=== PATIENT | female | born 2005 | race Caucasian/White ===

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

== ENCOUNTER 2023-08-08 03:40 | Emergency (ER) | payer BC, MEDICAID, SELFPAY ==
[2023-08-08 03:56] VITALS: BP 153/103; PULSE 101; RESP 20; TEMP 36.5; O2SAT 100; BMI 38.0
[2023-08-08 04:17] LABS: Basophils % 0.3 %; Eosinophils # 0.2 10^3/uL (0.0-0.8); Eosinophils % 1.6 %; Lymphocytes % 16.9 %; Mean Corpuscular HGB Conc 34.3 g/dL (30-55); Mean Corpuscular Hemoglobin 28.3 pg (27-33); Mean Corpuscular Volume 82.4 fl (85-98); Mean Platelet Volume 10.5 fL (7.4-10.4); Monocytes # 0.7 10^3/uL (0.2-0.9); Monocytes % 5.8 %; Neutrophils # 8.95 10^3/uL (1.8-8.0); Neutrophils % 74.9 %; Nucleated Red Blood Cells % 0 %; Platelet Count 328 10^3/cmm (157-399); Red Blood Count 4.49 10^6/uL (3.85-5.65); Red Cell Distribution Width 13.3 % (12.1-15.1); White Blood Count 11.95 10^3/uL (4.5-13.0)
[2023-08-08 04:25] LABS: INR 0.94 (0.8-1.2)
[2023-08-08 04:26] LABS: Add Urine Microscopic? YES; Bilirubin Urine Neg (Negative); Blood Urine Neg (Negative); Glucose Urine UA Norm (Normal); Ketones Urine Negative (Negative); Leukocyte Esterase Urine Negative (Negative); Nitrate Urine Negative (Negative); Partial Thromboplastin Time 30.2 SECONDS (23.9-36.7); Protein Urine Trace (Negative); Specific Gravity, Urine 1.005 (1.005-1.030); Urine Appearance Hazy (CLEAR); Urine Color Yellow (Yellow); Urobilinogen Urine Norm (Negative); pH Urine 7 (5-7)
[2023-08-08 04:28] LABS: Bacteria Urine 1+ /hpf; Squamous Epithelial Cell Urine 15-25 /hpf (0-5)
[2023-08-08 04:58] LABS: Alanine Aminotransferase 13 U/L (0-33); Albumin Level 4.2 g/dL (3.5-5.2); Alkaline Phosphatase 122 U/L (35-105); Anion Gap 17.9 (5-19); Aspartate Amino Transferase 12 U/L (0-32); Blood Urea Nitrogen 7 mg/dL (6-20); Carbon Dioxide 21 mmol/L (22-29); Chloride 100 mmol/L (98-107); Globulin 2.7 g/dL (1.3-4.6); Glomerular Filtration Rate 157.3 mL/min (90-130); Glucose 106 mg/dL (65-115); Osmolality Calculated 278 mOsm/kg (285-295); Potassium 3.9 mmol/L (3.5-5.1); Sodium 135 mmol/L (136-145); Total Bilirubin 0.3 mg/dL (0.15-1.2); Total Protein 6.9 g/dL (6.6-8.7)
--- NOTE | 2023-08-08 05:27 | ED_ITS ---
HPI - Female Genitourinary 2 General: Chief complaint: Vaginal Bleeding Stated complaint: 14 wks pre spotting cramping Time Seen by Provider: 08/08/23 04:04 History of Present Illness: 18-year-old female presents to the emerg ency department stating that she is concerned as she is 14 weeks she has had a confirmatory ultrasound demonstrating intrauterine . She states she has been seeing her [facility]UP[facility]ERAP[facility] HOME [facility] as scheduled. She states that this evening she went to the bathroom and noted some light pink-colored spotting on her toilet paper. She states she has not had any type of sexual intercourse in the last week, but was recently treated for bacterial vaginosis and is scheduled to be retested in 2 days. She denies abdominal cramping fever chills or night sweats. She does states she has increased urinary frequency. Review of Systems 2 General: Reports: 10 or more systems reviewed and unremarkable except in HPI and below : Reports: urinary frequency and vaginal bleeding PFS ED 2 PFSH: Medical History History of ovarian cyst No pertinent family history Surgical History No pertinent past surgical history Social History Smoking and tobacco/nicotine status: never used tobacco/nicotine Alcohol intake: never Female Reproductive History: Spontaneous abortions: No Physical Exam 2 Const: COMMON NORMALS: no acute distress, patient oriented x3 and alert HENMT: COMMON NORMALS: normocephalic, atraumatic and moist oral mucous membranes HEAD & SCALP: normocephalic and atraumatic Eye: COMMON NORMALS: Equal, round and reactive pupils present and EOMs intact bilaterally PUPIL: Yes Equal, round and reactive pupils present Neck/C-Spine: COMMON NORMALS: full ROM and supple Resp: COMMON NORMALS: normal respiratory effort, No retractions and clear to auscultation bilaterally AUSCULTATION: clear to auscultation bilaterally Cardio: COMMON NORMALS: regular rate, regular rhythm, S1 normal heart sound present and S2 normal heart sound present RATE: regular rate RHYTHM: r egular rhythm HEART SOUNDS: S1 normal heart sound present and S2 normal heart sound present GI: COMMON NORMALS: Normal to inspection, nondistended, normoactive bowel sounds present, Soft to palpation and non-tender PALPATION: Yes Soft to palpation : COMMON NORMALS: Yes no CVA tenderness BLADDER/KIDNEY EXAM: Yes no CVA tenderness Back/Pelvis: COMMON NORMALS: no CVA tenderness and thoracic and lumbar spine normal to inspection Extremity: COMMON NORMALS: normal to inspection, full ROM and capillary refill normal Neuro: COMMON NORMALS: patient oriented x3 SENSORIUM/ORIENTATION: Yes alert Psych: COMMON NORMALS: mental status grossly normal, Normal thought process present and cooperative THOUGHT PROCESS: Normal thought process present Skin: COMMON NORMALS: no rashes or lesions noted GENERAL SKIN EXAM: no rashes or lesions noted Course 2 Vital Signs: Vital signs: Vital Signs Temperature 97.7 F 08/08/23 03:56 Pulse Rate 101 H 08/08/23 03:56 Respiratory Rate 20 H 08/08/23 03:56 Blood Pressure 153/103 08/08/23 03:56 Pulse Oximetry 100 08/08/23 03:56 MDM - Female Medical Decision Making Physical exam completed and documented, I have obtained a CBC and a CMP as well as a urinalysis and a quantitative hCG. I will provide the patient written prescription for Keflex antibiotics for her urinary tract infection and have encouraged her to follow-up with her [facility] as previously scheduled. Differential diagnosis includes UTI, threatened , implantation. Medical Records I reviewed the patient's medical records. Lab Data I reviewed the patient's lab results. 08/08/23 04:07 08/08/23 04:07 Laboratory Results WBC 11.95 10^3/uL (4.5-13.0) 08/08/23 04:07 RBC 4.49 10^6/uL (3.85-5.65) 08/08/23 04:07 Hgb 12.70 g/dL (12.4-14.8) 08/08/23 04:07 Hct 37.0 % (36-47) 08/08/23 04:07 MCV 82.4 fl (85-98) L 08/08/23 04:07 MCH 28.3 pg (27-33) 08/08/23 04:07 MCHC 34.3 g/dL (30-55) 08/08/23 04:07 RDW 13.3 % (12.1-15.1) 08/08/23 04:07 Plt Count 328 10^3/cmm (157-399) 08/08/23 04:07 MPV 10.5 fL (7.4-10.4) H 08/08/23 04:07 Neut % (Auto) 74.9 % 08/08/23 04:07 Lymph % (Auto) 16.9 % 08/08/23 04:07 [place] % (Auto) 5.8 % 08/08/23 04:07 Eos % (Auto) 1.6 % 08/08/23 04:07 Baso % (Auto) 0.3 % 08/08/23 04:07 Neut # (Auto) 8.95 10^3/uL (1.8-8.0) H 08/08/23 04:07 Lymph # (Auto) 2.0 10^3/uL (1.5-6.5) 08/08/23 04:07 [place] # (Auto) 0.7 10^3/uL (0.2-0.9) 08/08/23 04:07 Eos # (Auto) 0.2 10^3/uL (0.0-0.8) 08/08/23 04:07 Baso # (Auto) 0.0 10^3/uL (0.0-0.1) 08/08/23 04:07 Nucleated RBC % (auto) 0 % 08/08/23 04:07 Nucleated RBCs # 0.0 /100WBC 08/08/23 04:07 PT 12.90 SECONDS (12.1-14.9) 08/08/23 04:07 INR 0.94 (0.8-1.2) 08/08/23 04:07 APTT 30.2 SECONDS (23.9-36.7) 08/08/23 04:07 Sodium 135 mmol/L (136-145) L 08/08/23 04:07 Potassium 3.9 mmol/L (3.5-5.1) 08/08/23 04:07 Chloride 100 mmol/L (98-107) 08/08/23 04:07 Carbon Dioxide 21 mmol/L (22-29) L 08/08/23 04:07 Anion Gap 17.9 (5-19) 08/08/23 04:07 BUN 7 mg/dL (6-20) 08/08/23 04:07 Creatinine 0.5 mg/dL (0.5-0.9) 08/08/23 04:07 GFR Calculation 157.3 mL/min (90-130) H 08/08/23 04:07 Glucose 106 mg/dL (65-115) 08/08/23 04:07 Calculated Osmolality 278 mOsm/kg (285-295) L 08/08/23 04:07 Calcium 9.0 mg/dL (8.5-10.5) 08/08/23 04:07 Total Bilirubin 0.3 mg/dL (0.15-1.2) 08/08/23 04:07 AST 12 U/L (0-32) 08/08/23 04:07 ALT 13 U/L (0-33) 08/08/23 04:07 Alkaline Phosphatase 122 U/L (35-105) H 08/08/23 04:07 Total Protein 6.9 g/dL (6.6-8.7) 08/08/23 04:07 Albumin 4.2 g/dL (3.5-5.2) 08/08/23 04:07 Globulin 2.7 g/dL (1.3-4.6) 08/08/23 04:07 Ser , Semi-Qnt 92042.00 mIU/mL 08/08/23 04:07 Urine Color Yellow (Yellow) 08/08/23 04:07 Urine Appearance Hazy (CLEAR) A 08/08/23 04:07 Urine pH 7 (5-7) 08/08/23 04:07 Ur Specific [place] 1.005 (1.005-1.030) 08/08/23 04:07 Urine Protein Trace (Negative) 08/08/23 04:07 Urine Glucose (UA) Norm (Normal) 08/08/23 04:07 Urine Ketones Negative (Negative) 08/08/23 04:07 Urine Blood Neg (Negative) 08/08/23 04:07 Urine Nitrate Negative (Negative) 08/08/23 04:07 Urine Bilirubin Neg (Negative) 08/08/23 04:07 Urine Urobilinogen Norm mg/dL (Negative) 08/08/23 04:07 Ur Leukocyte Esterase Negative (Negative) 08/08/23 04:07 Urine RBC 5-10 /hpf (0-2) H 08/08/23 04:07 Urine WBC 5-10 /hpf (0-5) H 08/08/23 04:07 Ur Squamous Epith Cells 15-25 /hpf (0-5) H 08/08/23 04:07 Amorphous Sediment Not Reportable 08/08/23 04:07 Urine Bacteria 1+ /hpf (NONE) H 08/08/23 04:07 Blood Type O Positive 08/08/23 04:07 Rho(D) Type Rh positive 08/08/23 04:07 No radiology studies performed this visit Discharge Plan Discharge Patient Disposition: Home Clinical Impression: UTI (urinary tract infection) during , Vaginal bleeding before 22 weeks gestation Condition: Stable Prescriptions: New cephalexin 500 mg capsule 500 mg PO BID 7 Days Qty: 14 0RF No Action aspirin [Adult Aspirin Regimen] 81 mg tablet,delayed release (DR/EC) 81 mg PO DAILY metronidazole 250 mg tablet 250 mg PO BID labetalol 100 mg tablet 100 mg PO BID cephalexin 500 mg capsule 500 mg PO BID Qty: 20 0RF Discharge Orders: Discharge ED (Routine); Ordered 08/08/23 Ordered By: Gorge Ash Referrals: Suzanne Ramos FNP [Primary Care Provider] - Discharge Diet: Usual diet Discharge Activity: Resume usual activity Patient Instructions: Opioid Safety, Pain Management Activity Restrictions/Additional Instructions: Follow-up with your OCCUPATIONAL THERAPIST HOME [facility] provider's guidelines regarding sexual activity. Be sure to keep your previously scheduled appointment. Activity Restrictions/Additional Instructions: Thank you for choosing [facility] for your healthcare needs today. Please realize that you were seen in the Emergency Department and that we are providing you with an emergency medical screening exam and this may not be a complete and all inclusive of all the testing and or medical work-up that you may need to determine your ailment or severity of your illness. It is very important that you follow-up as instructed with your Primary care provider or Specialist for additional evaluation and to discuss your medical treatment plan. You may return to the Emergency Department should you have concerns or if your condition changes or worsens in any way. Coding Level of Care Code ED Tank Cooper for Son[facility] Rivers
[2023-08-08 05:43] VITALS: BP 153/103; PULSE 101; RESP 20; TEMP 36.5; O2SAT 100
== END 2023-08-08 05:44 | disposition home or self-care (01) ==
PROVIDERS: Emergency Provider Internal Medicine; PCP Nurse Practitioner Family
DX: O23.42 Unspecified infection of urinary tract in pregnancy, second trimester (principal); N39.0 Urinary tract infection, site not specified; O20.9 Hemorrhage in early pregnancy, unspecified; Z3A.14 14 weeks gestation of pregnancy; Z79.82 Long term (current) use of aspirin
CPT/HCPCS: 80053; 81001; 84702; 85025; 85610; 85730; 86900; 99283

== ENCOUNTER 2023-08-15 11:23 | Emergency (ER) | payer BC, MEDICAID, SELFPAY ==
[2023-08-15 12:35] VITALS: BP 119/74; PULSE 93; RESP 17; TEMP 36.9; O2SAT 98; BMI 38.2
[2023-08-15 15:46] VITALS: BP 123/94; PULSE 102; RESP 18; O2SAT 100
--- NOTE | 2023-08-15 16:05 | USR_ITS ---
PROCEDURE INFORMATION: Exam: US , Limited Exam date and time: 08/15/2023 3:45 PM Age: 18 years old Clinical indication: complicated by abdominal or pelvic pain; Lower; Second trimester (14 weeks 0 days to 27 weeks 6 days); Gestational age or lmp: 15w5d; ; Additional info: Pelvic pain/fetus evaluation LABS AND CLINICAL REPORTS: Gestational age (Established): 15 w 5 d Estimated due date (Established): 02/01/2024 TECHNIQUE: Imaging protocol: Real-time ultrasound of the maternal uterus with image documentation. Exam focused on the clinical indication. COMPARISON: US pelvic complete* [id number] 12/17/2022 12:33 AM FINDINGS: Gestation: Single intrauterine live . heart rate: 157 bpm. presentation: Breech presentation. Placenta: Posterior fundal and slightly low-lying placenta. BIOMETRY: Gestational age (AUA): GI equals 15 weeks 5 days. Estimated due date (AUA): VERONICA = 02/01/2024. MATERNAL: Cervix: Cervical length measures 0 cm. Cervix trace equals 4 centimeters. US/US OB limited [id number] IMPRESSION: 1. Single live intrauterine with a heart rate of 157 bpm. 2. Gestational age 15 weeks 5 days.
[2023-08-15 16:29] LABS: Basophils % 0.3 %; Eosinophils # 0.2 10^3/uL (0.0-0.8); Eosinophils % 1.3 %; Hematocrit 35.8 % (36-47); Lymphocytes # 1.9 10^3/uL (1.5-6.5); Mean Corpuscular HGB Conc 34.1 g/dL (30-55); Mean Corpuscular Hemoglobin 27.9 pg (27-33); Mean Corpuscular Volume 81.9 fl (85-98); Mean Platelet Volume 10.3 fL (7.4-10.4); Monocytes # 0.7 10^3/uL (0.2-0.9); Monocytes % 6.2 %; Neutrophils # 9.05 10^3/uL (1.8-8.0); Neutrophils % 75.7 %; Nucleated Red Blood Cells % 0 %; Platelet Count 301 10^3/cmm (157-399); Red Blood Count 4.37 10^6/uL (3.85-5.65); Red Cell Distribution Width 13.4 % (12.1-15.1); White Blood Count 11.96 10^3/uL (4.5-13.0)
[2023-08-15 16:39] VITALS: BP 137/90; PULSE 81; RESP 18; O2SAT 99
[2023-08-15 16:48] LABS: Alanine Aminotransferase 13 U/L (0-33); Albumin Level 3.9 g/dL (3.5-5.2); Alkaline Phosphatase 116 U/L (35-105); Anion Gap 16.9 (5-19); Aspartate Amino Transferase 13 U/L (0-32); Blood Urea Nitrogen 5 mg/dL (6-20); Calcium 9.1 mg/dL (8.5-10.5); Carbon Dioxide 22 mmol/L (22-29); Chloride 100 mmol/L (98-107); Creatinine Clr Calc Pharmacy 222.6445; Globulin 3.4 g/dL (1.3-4.6); Glomerular Filtration Rate 157.3 mL/min (90-130); Glucose 94 mg/dL (65-115); Osmolality Calculated 277 mOsm/kg (285-295); Potassium 3.9 mmol/L (3.5-5.1); Sodium 135 mmol/L (136-145); Total Bilirubin 0.3 mg/dL (0.15-1.2); Total Protein 7.3 g/dL (6.6-8.7)
[2023-08-15 17:14] LABS: Urine Appearance SL Hazy (CLEAR); Urine Color Yellow (Yellow); pH Urine 5 (5-7)
[2023-08-15 17:15] LABS: Add Urine Culture? No; Add Urine Microscopic? YES; Bacteria Urine TRACE /hpf; Bilirubin Urine Neg (Negative); Blood Urine Neg (Negative); Glucose Urine UA Norm (Normal); Ketones Urine 3+ (Negative); Leukocyte Esterase Urine Trace (Negative); Nitrate Urine Negative (Negative); Protein Urine Trace (Negative); Urobilinogen Urine Norm (Negative); WBC Urine 0-4 /hpf (0-5)
[2023-08-15] MEDS: sodium chloride 0.9% 1,000 ML 999 ML IV (17:31)
--- NOTE | 2023-08-15 18:14 | ED_ITS ---
Documented by User: ANTONIA Schaffer 08/15/23 18:23 HPI - 2 General: Chief complaint: OB/Uterine Contractions Stated complaint: 15 weeks , pressure and mucus loss Time Seen by Provider: 08/15/23 15:35 Source: patient Mode of arrival: ambulatory Limitations: no limitations History of Present Illness: Patient is a 18-year-old female presents to the emergency department planing of lower abdominal pain and mucoid discharge onset today. Patient is approximately 15 weeks and states that her last OB visit she had a normal ultrasound confirming healthy fetus. Patient states she has been taking antibiotics for both bacterial vaginosis as well as a urinary tract infection. She denies any bleeding, lightheadedness or dizziness, chest pain or palpitations, or any other symptoms. Associated symptoms: Reports vaginal discharge; Deny abdominal pain, dysuria, headache(s), nausea or vomiting Review of Systems 2 General: Reports: 10 or more systems reviewed and unremarkable except in HPI and below Const: Reports: other (); Denies: fever(s), chills, change in appetite, change in weight or diaphoresis ENMT: Denies: throat pain or hoarseness Card: Denies: chest pain, palpitations or lightheadedness Resp: Denies: dyspnea, productive cough or wheezing GI: Denies: abdominal pain, nausea, vomiting, diarrhea, constipation, bloating, change in stool character or hematochezia : Reports: vaginal discharge and pelvic pain; Denies: flank pain, difficulty voiding, dysuria, urinary frequency or urinary urgency Musc: Denies: neck pain or back pain Skin/Breast: Denies: rash or new lesions Neuro: Denies: headache(s) or dizziness PFSH ED 2 PFSH: Medical History History of ovarian cyst No pertinent family history Surgical History No pertinent past surgical history Social History Smoking and tobacco/nicotine status: never used tobacco/nicotine Alcohol intake: never Female Reproductive History: Spontaneous abortions: No Physical Exam 2 Const: COMMON NORMALS: no acute distress, average body habitus, patient oriented x3, no limitations, healthy appearing, alert and well nourished G ENERAL APPEARANCE: cooperative and comfortable ORIENTATION/CONSCIOUSNESS: Yes awake Eye: COMMON NORMALS: Equal, round and reactive pupils present, EOMs intact bilaterally, conjunctivae normal and normal visual al by confrontation C ONJUNCTIVA: Yes conjunctivae normal PUPIL: Yes Equal, round and reactive pupils present Neck/C-Spine: COMMON NORMALS: full ROM, supple, no meningeal signs and no JVD Resp: COMMON NORMALS: normal respiratory effort, No retractions, No use of accessory muscles and clear to auscultation bilaterally AUSCULTATION: clear to auscultation bilaterally, no crackles, no rales, no rhonchi and no wheezes Cardio: COMMON NORMALS: no JVD, regular rate, regular rhythm, S1 normal heart sound present, S2 normal heart sound present, No gallops present (Cardio), No clicks present (Cardio), No murmurs present (Cardio), No rub (Cardio) and Peripheral pulses 2+ throughout RATE: regular rate RHYTHM: regular rhythm HEART SOUNDS: S1 normal heart sound present and S2 normal heart sound present PERIPHERAL PULSES: Peripheral pulses 2+ throughout GI: COMMON NORMALS: Normal to inspection, nondistended, normoactive bowel sounds present, Soft to palpation, No hepatosplenomegaly present and no masses AUSCULTATION: Yes normoactive bowel sounds PALPATION: Yes Soft to palpation, Yes Tenderness to palpation present (GI) Details: LLQ (Mild), No Guarding due to palpation present (GI), No Rigid due to palpation and Yes No hepatosplenomegaly present RECTAL EXAM: deferred : COMMON NORMALS: Yes no CVA tenderness BLADDER/KIDNEY EXAM: Yes no CVA tenderness Back/Pelvis: COMMON NORMALS: no CVA tenderness Extremity: COMMON NORMALS: normal to inspection and full ROM Neuro: COMMON NORMALS: patient oriented x3, moves all extremities, no focal motor deficits and no sensory deficits noted SENSORIUM/ORIENTATION: Yes alert MENINGEAL SIGNS: Yes no meningeal signs Psych: COMMON NORMALS: mental status grossly normal, cooperative and speech normal SPEECH: Yes normal speech Skin: COMMON NORMALS: no rashes or lesions noted GENERAL SKIN EXAM: no rashes or lesions noted Course 2 Vital Signs: Vital signs: Vital Signs Temperature 98.4 F 08/15/23 18:17 Pulse Rate 81 08/15/23 18:17 Respiratory Rate 18 03/02/24 18:17 Blood Pressure 137/90 08/15/23 18:17 Pulse Oximetry 99 08/15/23 18:17 Oxygen Delivery Me thod Room Air 08/15/23 16:39 MDM - OB/Uterine Contractions Medical Decision Making This patient was seen and evaluated in the emergency department today due to mucoid vaginal discharge as well as some pelvic pain. Patient currently being treated with antibiotics for a urinary tract infection as well as a bacterial vaginosis infection. This is her first , and she states she feels like her baby was laying in a weird direction inside her uterus. Examination remarkable only for some mild left lower quadrant tenderness reproducible to palpation, the patient says she had prior to being diagnosed with a urinary tract infection. Labs revealed signs of mild dehydration, and she was started on some IV fluids. CBC did not show any signs of acute infection. A cath urine showed evidence of urinary tract infection, in which patient will continue to take her antibiotics. OB ultrasound confirmed presence of intrauterine with a heart rate of 157 and a gestational age of 15 weeks and 5 days. I instructed the patient of these findings, and states that she needs to follow-up with her OB early next week to discuss this and any further testing that needs to be done. My suspicion for ectopic or tubo-ovarian abscess is very low after these findings, and I believe it is safe to discharge the patient home as long as she follows up with her OB early next week. She agrees with this plan. Patient discharged home. Lab Data I reviewed the patient's lab results. 08/15/23 16:19 08/15/23 16:19 Radiology Impressions Obstetrics Ultrasound 08/15/23 16:05 IMPRESSION: 1. Single live intrauterine with a heart rate of 157 bpm. 2. Gestational age 15 weeks 5 days. Laboratory Results WBC 11.96 10^3/uL (4.5-13.0) 08/15/23 16:19 RBC 4.37 10^6/uL (3.85-5.65) 08/15/23 16:19 Hgb 12.20 g/dL (12.4-14.8) L 08/15/23 16:19 Hct 35.8 % (36-47) L 08/15/23 16:19 MCV 81.9 fl (85-98) L 08/15/23 16:19 MCH 27.9 pg (27-33) 08/15/23 16:19 MCHC 34.1 g/dL (30-55) 08/15/23 16:19 RDW 13.4 % (12.1-15.1) 08/15/23 16:19 Plt Count 301 10^3/cmm (157-399) 08/15/23 16:19 MPV 10.3 fL (7.4-10.4) 08/15/23 16:19 Neut % (Auto) 75.7 % 08/15/23 16:19 Lymph % (Auto) 16.0 % 08/15/23 16:19 [place] % (Auto) 6.2 % 08/15/23 16:19 Eos % (Auto) 1.3 % 08/15/23 16:19 Baso % (Auto) 0.3 % 08/15/23 16:19 Neut # (Auto) 9.05 10^3/uL (1.8-8.0) H 08/15/23 16:19 Lymph # (Auto) 1.9 10^3/uL (1.5-6.5) 08/15/23 16:19 [place] # (Auto) 0.7 10^3/uL (0.2-0.9) 08/15/23 16:19 Eos # (Auto) 0.2 10^3/uL (0.0-0.8) 08/15/23 16:19 Baso # (Auto) 0.0 10^3/uL (0.0-0.1) 08/15/23 16:19 Nucleated RBC % (auto) 0 % 08/15/23 16:19 Nucleated RBCs # 0.0 /100WBC 08/15/23 16:19 Sodium 135 mmol/L (136-145) L 08/15/23 16:19 Potassium 3.9 mmol/L (3.5-5.1) 08/15/23 16:19 Chloride 100 mmol/L (98-107) 08/15/23 16:19 Carbon Dioxide 22 mmol/L (22-29) 08/15/23 16:19 Anion Gap 16.9 (5-19) 08/15/23 16:19 BUN 5 mg/dL (6-20) L 08/15/23 16:19 Creatinine 0.5 mg/dL (0.5-0.9) 08/15/23 16:19 GFR Calculation 157.3 mL/min (90-130) H 08/15/23 16:19 Glucose 94 mg/dL (65-115) 08/15/23 16:19 Calculated Osmolality 277 mOsm/kg (285-295) L 08/15/23 16:19 Calcium 9.1 mg/dL (8.5-10.5) 08/15/23 16:19 Total Bilirubin 0.3 mg/dL (0.15-1.2) 08/15/23 16:19 AST 13 U/L (0-32) 08/15/23 16:19 ALT 13 U/L (0-33) 08/15/23 16:19 Alkaline Phosphatase 116 U/L (35-105) H 08/15/23 16:19 Total Protein 7.3 g/dL (6.6-8.7) 08/15/23 16:19 Albumin 3.9 g/dL (3.5-5.2) 08/15/23 16:19 Globulin 3.4 g/dL (1.3-4.6) 08/15/23 16:19 Urine Color Yellow (Yellow) 08/15/23 16:24 Urine Appearance Sl hazy (CLEAR) A 08/15/23 16:24 Urine pH 5 (5-7) 08/15/23 16:24 Ur Specific [place] 1.030 (1.005-1.030) 08/15/23 16:24 Urine Protein Trace (Negative) 08/15/23 16:24 Urine Glucose (UA) Norm (Normal) 08/15/23 16:24 Urine Ketones 3+ (Negative) H 08/15/23 16:24 Urine Blood Neg (Negative) 08/15/23 16:24 Urine Nitrate Negative (Negative) 08/15/23 16:24 Urine Bilirubin Neg (Negative) 08/15/23 16:24 Urine Urobilinogen Norm mg/dL (Negative) 08/15/23 16:24 Ur Leukocyte Esterase Trace (Negative) H 08/15/23 16:24 Urine RBC None /hpf (0-2) 08/15/23 16:24 Urine WBC 0-4 /hpf (0-5) H 08/15/23 16:24 Ur Squamous Epith Cells 10-15 /hpf (0-5) H 08/15/23 16:24 Amorphous Sediment Not Reportable 08/15/23 16:24 Urine Bacteria Trace /hpf (NONE) 08/15/23 16:24 All radiology interpretation(s) finalized by discharge Discharge Plan Discharge Patient Disposition: Home Clinical Impression: UTI (urinary tract infection) during Condition: Stable Prescriptions: No Action aspirin [Adult Aspirin Regimen] 81 mg tablet,delayed release (DR/EC) 81 mg PO DAILY metronidazole 250 mg tablet 250 mg PO BID labetalol 100 mg tablet 100 mg PO BID cephalexin 500 mg capsule 500 mg PO BID Qty: 20 0RF Discharge Orders: Discharge ED (Routine); Ordered 08/15/23 Ordered By: Da Irving Referrals: Suzanne Ramos FNP [Primary Care Provider] - Discharge Diet: Usual diet Discharge Activity: Increase activity as tolerated Patient Instructions: Abdominal Pain in (ED), Urinary Tract Infection in (ED) Activity Restrictions/Additional Instructions: Follow-up with your OB doc early next week to discuss ER visit and any necessary further workup. Plenty of fluids. If you develop any significant worsening of abdominal pain, have any vaginal bleeding, or develop any other concerning symptoms please return for reevaluation. Coding Level of Care Code ED Internet Marketing Intern for Chg Fwd Documented by User: Tyrese Nugent DO 08/17/23 06:32 HPI - 2 General: Chief complaint: OB/Uterine Contractions Stated complaint: 15 weeks , pressure and mucus loss Time Seen by Provider: 08/15/23 15:35 PFSH ED 2 PFSH: Medical History History of ovarian cyst No pertinent family history Surgical History No pertinent past surgical history Social History Smoking and tobacco/nicotine status: never used tobacco/nicotine Alcohol intake: never Course 2 Vital Signs: Vital signs: Vital Signs Temperature 98.4 F 08/15/23 18:17 Pulse Rate 81 08/15/23 18:17 Respiratory Rate 18 08/15/23 18:17 Blood Pressure 137/90 08/15/23 18:17 Pulse Oximetry 99 08/15/23 18:17 Oxygen Delivery Me thod Room Air 08/15/23 16:39 MDM - OB/Uterine Contractions Medical Decision Making This patient was seen and evaluated in the emergency department today due to mucoid vaginal discharge as well as some pelvic pain. Patient currently being treated with antibiotics for a urinary tract infection as well as a bacterial vaginosis infection. This is her first , and she states she feels like her baby was laying in a weird direction inside her uterus. Examination remarkable only for some mild left lower quadrant tenderness reproducible to palpation, the patient says she had prior to being diagnosed with a urinary tract infection. Labs revealed signs of mild dehydration, and she was started on some IV fluids. CBC did not show any signs of acute infection. A cath urine showed evidence of urinary tract infection, in which patient will continue to take her antibiotics. OB ultrasound confirmed presence of intrauterine with a heart rate of 157 and a gestational age of 15 weeks and 5 days. I instructed the patient of these findings, and states that she needs to follow-up with her OB early next week to discuss this and any further testing that needs to be done. My suspicion for ectopic or tubo-ovarian abscess is very low after these findings, and I believe it is safe to discharge the patient home as long as she follows up with her OB early next week. She agrees with this plan. Patient discharged home. Chart reviewed and patient discussed with midlevel. Agree with assessment and plan. Lab Data 08/15/23 16:19 08/15/23 16:19 Radiology Impressions Obstetrics Ultrasound 08/15/23 16:05 IMPRESSION: 1. Single live intrauterine with a heart rate of 157 bpm. 2. Gestational age 15 weeks 5 days. Laboratory Results WBC 11.96 10^3/uL (4.5-13.0) 08/15/23 16:19 RBC 4.37 10^6/uL (3.85-5.65) 08/15/23 16:19 Hgb 12.20 g/dL (12.4-14.8) L 08/15/23 16:19 Hct 35.8 % (36-47) L 08/15/23 16:19 MCV 81.9 fl (85-98) L 08/15/23 16:19 MCH 27.9 pg (27-33) 08/15/23 16:19 MCHC 34.1 g/dL (30-55) 08/15/23 16:19 RDW 13.4 % (12.1-15.1) 08/15/23 16:19 Plt Count 301 10^3/cmm (157-399) 08/15/23 16:19 MPV 10.3 fL (7.4-10.4) 08/15/23 16:19 Neut % (Auto) 75.7 % 08/15/23 16:19 Lymph % (Auto) 16.0 % 08/15/23 16:19 [place] % (Auto) 6.2 % 08/15/23 16:19 Eos % (Auto) 1.3 % 08/15/23 16:19 Baso % (Auto) 0.3 % 08/15/23 16:19 Neut # (Auto) 9.05 10^3/uL (1.8-8.0) H 08/15/23 16:19 Lymph # (Auto) 1.9 10^3/uL (1.5-6.5) 08/15/23 16:19 [place] # (Auto) 0.7 10^3/uL (0.2-0.9) 08/15/23 16:19 Eos # (Auto) 0.2 10^3/uL (0.0-0.8) 08/15/23 16:19 Baso # (Auto) 0.0 10^3/uL (0.0-0.1) 08/15/23 16:19 Nucleated RBC % (auto) 0 % 08/15/23 16:19 Nucleated RBCs # 0.0 /100WBC 08/15/23 16:19 Sodium 135 mmol/L (136-145) L 08/15/23 16:19 Potassium 3.9 mmol/L (3.5-5.1) 08/15/23 16:19 Chloride 100 mmol/L (98-107) 08/15/23 16:19 Carbon Dioxide 22 mmol/L (22-29) 08/15/23 16:19 Anion Gap 16.9 (5-19) 08/15/23 16:19 BUN 5 mg/dL (6-20) L 08/15/23 16:19 Creatinine 0.5 mg/dL (0.5-0.9) 08/15/23 16:19 GFR Calculation 157.3 mL/min (90-130) H 08/15/23 16:19 Glucose 94 mg/dL (65-115) 08/15/23 16:19 Calculated Osmolality 277 mOsm/kg (285-295) L 08/15/23 16:19 Calcium 9.1 mg/dL (8.5-10.5) 08/15/23 16:19 Total Bilirubin 0.3 mg/dL (0.15-1.2) 08/15/23 16:19 AST 13 U/L (0-32) 08/15/23 16:19 ALT 13 U/L (0-33) 08/15/23 16:19 Alkaline Phosphatase 116 U/L (35-105) H 08/15/23 16:19 Total Protein 7.3 g/dL (6.6-8.7) 08/15/23 16:19 Albumin 3.9 g/dL (3.5-5.2) 08/15/23 16:19 Globulin 3.4 g/dL (1.3-4.6) 08/15/23 16:19 Urine Color Yellow (Yellow) 08/15/23 16:24 Urine Appearance Sl hazy (CLEAR) A 08/15/23 16:24 Urine pH 5 (5-7) 08/15/23 16:24 Ur Specific [place] 1.030 (1.005-1.030) 08/15/23 16:24 Urine Protein Trace (Negative) 08/15/23 16:24 Urine Glucose (UA) Norm (Normal) 08/15/23 16:24 Urine Ketones 3+ (Negative) H 08/15/23 16:24 Urine Blood Neg (Negative) 08/15/23 16:24 Urine Nitrate Negative (Negative) 08/15/23 16:24 Urine Bilirubin Neg (Negative) 08/15/23 16:24 Urine Urobilinogen Norm mg/dL (Negative) 08/15/23 16:24 Ur Leukocyte Esterase Trace (Negative) H 08/15/23 16:24 Urine RBC None /hpf (0-2) 08/15/23 16:24 Urine WBC 0-4 /hpf (0-5) H 08/15/23 16:24 Ur Squamous Epith Cells 10-15 /hpf (0-5) H 08/15/23 16:24 Amorphous Sediment Not Reportable 08/15/23 16:24 Urine Bacteria Trace /hpf (NONE) 08/15/23 16:24 Discharge Plan Discharge Patient Disposition: Home Clinical Impression: UTI (urinary tract infection) during Condition: Stable Prescriptions: No Action aspirin [Adult Aspirin Regimen] 81 mg tablet,delayed release (DR/EC) 81 mg PO DAILY metronidazole 250 mg tablet 250 mg PO BID labetalol 100 mg tablet 100 mg PO BID cephalexin 500 mg capsule 500 mg PO BID Qty: 20 0RF Discharge Orders: Discharge ED (Routine); Ordered 08/15/23 Ordered By: Da Irving Referrals: Suzanne Ramos FNP [Primary Care Provider] - Discharge Diet: Usual diet Discharge Activity: Increase activity as tolerated Patient Instructions: Abdominal Pain in (ED), Urinary Tract Infection in (ED) Activity Restrictions/Additional Instructions: Follow-up with your OB doc early next week to discuss ER visit and any necessary further workup. Plenty of fluids. If you develop any significant worsening of abdominal pain, have any vaginal bleeding, or develop any other concerning symptoms please return for reevaluation. Coding Level of Care Code ED Internet Marketing Intern for Sonido Rivers
[2023-08-15 18:17] VITALS: BP 137/90; PULSE 81; RESP 18; TEMP 36.9; O2SAT 99
== END 2023-08-15 18:18 | disposition home or self-care (01) ==
PROVIDERS: Emergency Provider Physician Assistant; PCP Nurse Practitioner Family
DX: O23.42 Unspecified infection of urinary tract in pregnancy, second trimester (principal); N39.0 Urinary tract infection, site not specified; Z3A.15 15 weeks gestation of pregnancy; Z79.82 Long term (current) use of aspirin
CPT/HCPCS: 36415; 76815; 80053; 81001; 85025; 96360; 99284; J7030

== ENCOUNTER 2023-10-16 10:23 | Outpatient (CLI) | payer BC, MEDICAID, SELFPAY ==
[2023-10-16 10:27] VITALS: BMI 39.4
[2023-10-16 10:42] VITALS: BP 130/74; PULSE 102
[2023-10-16 10:43] VITALS: RESP 14; TEMP 36.6
[2023-10-16 10:57] VITALS: BP 116/60; PULSE 97
--- NOTE | 2023-10-16 11:00 | USR_ITS ---
PROCEDURE INFORMATION: Exam: US , Limited Exam date and time: 10/16/2023 11:19 AM Age: 18 years old Clinical indication: Other: Spotting; ; Additional info: Placenta LABS AND CLINICAL REPORTS: Gestational age (Established): 24 w 4 d Estimated due date (Established): 02/01/2024 TECHNIQUE: Imaging protocol: Real-time ultrasound of the maternal uterus with image documentation. Exam focused on the clinical indication. COMPARISON: US OB limited [id number] 08/15/2023 3:45 PM FINDINGS: Gestation: There is a single live intrauterine gestation in a breech presentation with a posterior placenta. heart rate: 145 bpm MATERNAL: Cervix: Cervical length measures 3.3 cm. US/US OB limited [id number] IMPRESSION: Single live intrauterine gestation as described.
[2023-10-16 11:12] VITALS: BP 111/58; PULSE 95
[2023-10-16 11:38] VITALS: BP 111/58; PULSE 95; RESP 15; TEMP 36.6
== END 2023-10-16 11:40 | disposition home or self-care (01) ==
LOC: OPOB 10:23 → OBGYN 10:24
PROVIDERS: PCP Nurse Practitioner Family; Visit Provider Family Medicine
DX: O26.852 Spotting complicating pregnancy, second trimester (principal); Z3A.24 24 weeks gestation of pregnancy
CPT/HCPCS: 76815; 99211

== ENCOUNTER → 2023-10-22 13:27 | Outpatient (BNVA) | payer BC, MEDICAID, SELFPAY | PROVIDERS: PCP Nurse Practitioner Family; Referring Provider Family Medicine; Visit Provider Internal Medicine | DX: R07.9 Chest pain, unspecified (principal); I49.5 Sick sinus syndrome; R01.1 Cardiac murmur, unspecified; R00.2 Palpitations | CPT/HCPCS: 93005 ==

== ENCOUNTER 2023-11-05 07:26 | Outpatient (CLI) | payer BC, MEDICAID, SELFPAY ==
--- NOTE | 2023-11-05 07:30 | USCV_ITS ---
Dominga Díaz Age: 18 Gender: F : 2005 Exam Date: 11/05/2023 07:52 Ordering Phys: Kai Loya M.D ([email or web address]) Technologist: SHRAVAN Exam Location: [facility] [place] Indication: MURMUR BP: 118 / 72 HR: 109 Rhythm: Sinus Technical Quality: Adequate MEASUREMENTS (Male / Female) Normal Values 2D ECHO LV Diastolic Diameter PLAX 4.5 cm 4.2 - 5.9 / 3.9 - 5.3 cm IVS Diastolic Thickness 1.0 cm 0.6 - 1.0 / 0.6 - 0.9 cm IVS Systolic Thickness 1.9 cm LVPW Diastolic Thickness 2.0 cm 0.6 - 1.0 / 0.6 - 0.9 cm LVPW Systolic Thickness 2.5 cm LVOT Diameter 2.0 cm LV Ejection Fraction 2D Teich 71.1 % LV Ejection Fraction MOD 2C 52.8 % LV Ejection Fraction 2C AL 54.0 % LA Diameter 2.8 cm RA Systolic Volume 4C AL 23.0 ml RA Systolic Volume 4C MOD 22.4 ml LA Sys Volume AL 35.5 cm cubed LA Sys Volume Index AL 15.2 cm cubed/m squared Aorta at Sinotubular Diameter 2.2 cm IVC Diameter 1.0 cm M-MODE LA Ao Ratio MM 0.9 AV Cusp Separation MM 1.9 cm DOPPLER AV Peak Velocity 138.0 cm/s LVOT Peak Velocity 106.0 cm/s AV Area Cont Eq vti 2.4 cm squared AV Area Cont Eq pk 2.4 cm squared MV Peak Velocity 90.0 cm/s MV Area PHT 10.2 cm squared Mitral E to A Ratio 1.0 TR Peak Velocity 138.0 cm/s TR Peak Gradient 7.6 mmHg TR Mean Velocity 122.0 cm/s TR Mean Gradient 6.1 mmHg TR Velocity Time Integral 41.0 cm TV Peak E Velocity 62.0 cm/s Right Atrial Pressure 3.0 mmHg Pulmonary Artery Systolic Pressu 10.6 mmHg PV Peak Velocity 113.0 cm/s RV Ejection Time 0.3 s FINDINGS Left Ventricle Liver is normal size. LV systolic function is normal with EF 55 to 60%. No regional wall motion abnormalities are seen. Right Ventricle Normal in size and function Right Atrium Normal in size Left Atrium Normal in size. Mitral Valve Structurally normal mitral valve. Mild mitral regurgitation. Aortic Valve Structurally normal aortic valve. No significant stenosis or regurgitation Tricuspid Valve Insufficient TR jet to calculate RVSP. Pulmonic Valve Not well visualized Pericardium Normal Aorta Normal in size IVC Appears to be normal CONCLUSIONS LV systolic function is normal with EF of 55-60% Mild mitral regurgitation No comparison studies are available. Kai Loya MD (Electronically Signed) Final Date: 19 November 2023 17:09 S
== END 2023-11-05 07:27 | disposition home or self-care (01) ==
LOC: RAD 07:26
PROVIDERS: PCP Nurse Practitioner Family; Visit Provider Internal Medicine
DX: R01.1 Cardiac murmur, unspecified (principal)
CPT/HCPCS: 93306

== ENCOUNTER 2023-11-23 18:39 | Outpatient (CLI) | payer BC, MEDICAID, SELFPAY ==
[2023-11-23 18:56] VITALS: TEMP 35.5
[2023-11-23 18:57] VITALS: BP 138/72; PULSE 100
[2023-11-23 19:00] VITALS: BMI 40.1
[2023-11-23 19:10] VITALS: BP 134/74; PULSE 109
[2023-11-23 19:20] VITALS: BP 124/67; PULSE 92
[2023-11-23 19:40] VITALS: BP 124/67; PULSE 92; RESP 18
== END 2023-11-23 19:40 | disposition home or self-care (01) ==
LOC: OPOB 18:45 → OBGYN 18:50
PROVIDERS: PCP Nurse Practitioner Family; Visit Provider Family Medicine
DX: O36.8190 Decreased fetal movements, unspecified trimester, not applicable or unspecified (principal); Z3A.00 Weeks of gestation of pregnancy not specified
CPT/HCPCS: 59025; 99211

== ENCOUNTER 2023-12-02 20:50 | Outpatient (CLI) | payer BC, MEDICAID, SELFPAY ==
[2023-12-02] VITALS (11 sets, daily range): BP systolic 116–147; BP diastolic 57–84; PULSE 90–109; RESP 20; TEMP 36.2; BMI 40.6
[2023-12-02] MEDS: acetaminophen 500 mg Tablet 1000 MG PO (21:55)
== END 2023-12-02 23:13 | disposition home or self-care (01) ==
LOC: OPOB 20:52 → NUR 20:54 → OBGYN 20:56
PROVIDERS: PCP Nurse Practitioner Family; Visit Provider Obstetrics & Gynecology
DX: O16.9 Unspecified maternal hypertension, unspecified trimester (principal); O36.8190 Decreased fetal movements, unspecified trimester, not applicable or unspecified; Z3A.00 Weeks of gestation of pregnancy not specified
CPT/HCPCS: 59025; 99211

== ENCOUNTER 2023-12-15 14:16 | Outpatient (CLI) | payer BC, MEDICAID, SELFPAY ==
[2023-12-15] VITALS (16 sets, daily range): BP systolic 134–162; BP diastolic 66–110; PULSE 91–113; RESP 18; TEMP 35.9; BMI 41.8
[2023-12-15 15:18] LABS: Basophils # 0.1 10^3/uL (0.0-0.1); Basophils % 0.4 %; Eosinophils # 0.2 10^3/uL (0.0-0.8); Eosinophils % 1.2 %; Hematocrit 34.1 % (36-47); Lymphocytes # 1.7 10^3/uL (1.5-6.5); Lymphocytes % 12.9 %; Mean Corpuscular HGB Conc 33.7 g/dL (30-55); Mean Corpuscular Volume 85.9 fl (85-98); Monocytes # 0.9 10^3/uL (0.2-0.9); Monocytes % 6.7 %; Neutrophils # 10.53 10^3/uL (1.8-8.0); Neutrophils % 77.8 %; Nucleated Red Blood Cells % 0 %; Platelet Count 323 10^3/cmm (157-399); Red Blood Count 3.97 10^6/uL (3.85-5.65); Red Cell Distribution Width 13.9 % (12.1-15.1); White Blood Count 13.53 10^3/uL (4.5-13.0)
[2023-12-15 15:35] LABS: Alanine Aminotransferase 11 U/L (0-33); Albumin Level 3.7 g/dL (3.5-5.2); Alkaline Phosphatase 184 U/L (35-105); Aspartate Amino Transferase 17 U/L (0-32); Blood Urea Nitrogen 7 mg/dL (6-20); Calcium 9.8 mg/dL (8.5-10.5); Carbon Dioxide 20 mmol/L (22-29); Chloride 102 mmol/L (98-107); Globulin 3.6 g/dL (1.3-4.6); Glomerular Filtration Rate 157.3 mL/min (90-130); Glucose 116 mg/dL (65-115); Osmolality Calculated 281 mOsm/kg (285-295); Sodium 136 mmol/L (136-145); Total Bilirubin 0.2 mg/dL (0.15-1.2); Total Protein 7.3 g/dL (6.6-8.7); Uric Acid 4.6 mg/dL (2.4-5.7)
[2023-12-15 15:46] LABS: Add Urine Microscopic? YES; Bacteria Urine 1+ /hpf; Bilirubin Urine Neg (Negative); Blood Urine Neg (Negative); Glucose Urine UA Norm (Normal); Ketones Urine Negative (Negative); Leukocyte Esterase Urine Negative (Negative); Nitrate Urine Negative (Negative); Protein Urine Neg (Negative); Specific Gravity, Urine 1.005 (1.005-1.030); Urine Appearance Slightly Cloudy (CLEAR); Urine Color Yellow (Yellow); Urobilinogen Urine Norm (Negative); WBC Urine 0-4 /hpf (0-5); pH Urine 7 (5-7)
[2023-12-15 15:47] LABS: Add Urine Culture? No
[2023-12-15 15:56] LABS: Urine Creatinine 14 mg/dL (28-217); Urine Protein Random 4 mg/dL
[2023-12-15 15:57] LABS: UPRO/UCREAT Ratio 0.29 mg/mg CR
== END 2023-12-15 17:05 | disposition home or self-care (01) ==
LOC: OPOB 14:24 → OBGYN 14:31
PROVIDERS: PCP Nurse Practitioner Family; Visit Provider Obstetrics & Gynecology
DX: O36.8190 Decreased fetal movements, unspecified trimester, not applicable or unspecified (principal); O16.9 Unspecified maternal hypertension, unspecified trimester; Z3A.00 Weeks of gestation of pregnancy not specified
CPT/HCPCS: 36415; 59025; 80053; 81001; 82570; 83986; 84156; 84550; 85025; 99211

== ENCOUNTER → 2023-12-24 07:56 | Outpatient (BNVA) | payer BC, MEDICAID, SELFPAY | PROVIDERS: PCP Nurse Practitioner Family; Visit Provider Obstetrics & Gynecology | DX: Z34.93 Encounter for supervision of normal pregnancy, unspecified, third trimester (principal); Z3A.35 35 weeks gestation of pregnancy | CPT/HCPCS: 76816 ==

== ENCOUNTER 2023-12-25 11:35 | Outpatient (CLI) | payer BC, MEDICAID, SELFPAY ==
[2023-12-25] VITALS (9 sets, daily range): BP systolic 138–150; BP diastolic 84–98; PULSE 115–141; O2SAT 98; BMI 42.3
== END 2023-12-25 12:50 | disposition home or self-care (01) ==
LOC: OPOB 11:38 → OBGYN 11:39
PROVIDERS: PCP Nurse Practitioner Family; Visit Provider Obstetrics & Gynecology
DX: O16.9 Unspecified maternal hypertension, unspecified trimester (principal); Z3A.00 Weeks of gestation of pregnancy not specified
CPT/HCPCS: 59025

== ENCOUNTER 2023-12-29 11:02 | Outpatient (CLI) | payer BC, MEDICAID, SELFPAY ==
[2023-12-29] VITALS (14 sets, daily range): BP systolic 134–188; BP diastolic 78–104; PULSE 96–148; TEMP 35.6; BMI 41.1
[2023-12-29 13:19] LABS: Basophils % 0.2 %; Eosinophils # 0.1 10^3/uL (0.0-0.8); Eosinophils % 0.7 %; Hematocrit 33.7 % (36-47); Lymphocytes # 1.5 10^3/uL (1.5-6.5); Mean Corpuscular HGB Conc 34.1 g/dL (30-55); Mean Corpuscular Hemoglobin 28.8 pg (27-33); Mean Corpuscular Volume 84.3 fl (85-98); Mean Platelet Volume 10.9 fL (7.4-10.4); Monocytes % 8.4 %; Neutrophils # 8.65 10^3/uL (1.8-8.0); Neutrophils % 76.9 %; Nucleated Red Blood Cells % 0 %; Platelet Count 288 10^3/cmm (157-399); Red Cell Distribution Width 13.8 % (12.1-15.1); White Blood Count 11.25 10^3/uL (4.5-13.0)
[2023-12-29 13:30] LABS: Urine Appearance Slightly Cloudy (CLEAR); Urine Color Yellow (Yellow)
[2023-12-29 13:31] LABS: Add Urine Microscopic? YES; Bilirubin Urine Neg (Negative); Blood Urine Neg (Negative); Glucose Urine UA Norm (Normal); Ketones Urine Negative (Negative); Leukocyte Esterase Urine Negative (Negative); Nitrate Urine Negative (Negative); Protein Urine Neg (Negative); RBC Urine RARE /hpf (0-2); Urobilinogen Urine Neg (Negative); WBC Urine 0-4 /hpf (0-5); pH Urine 7 (5-7)
[2023-12-29 13:32] LABS: Add Urine Culture? No; Bacteria Urine 2+ /hpf
[2023-12-29 13:35] LABS: Alanine Aminotransferase 12 U/L (0-33); Albumin Level 3.4 g/dL (3.5-5.2); Alkaline Phosphatase 209 U/L (35-105); Aspartate Amino Transferase 13 U/L (0-32); Blood Urea Nitrogen 5 mg/dL (6-20); Carbon Dioxide 18 mmol/L (22-29); Chloride 102 mmol/L (98-107); Creatinine Clr Calc Pharmacy 231.8981; Globulin 3.3 g/dL (1.3-4.6); Glomerular Filtration Rate 157.3 mL/min (90-130); Glucose 119 mg/dL (65-115); Osmolality Calculated 278 mOsm/kg (285-295); Sodium 135 mmol/L (136-145); Total Bilirubin 0.2 mg/dL (0.15-1.2); Total Protein 6.7 g/dL (6.6-8.7); Uric Acid 4.9 mg/dL (2.4-5.7)
[2023-12-29 13:39] LABS: Urine Creatinine 48 mg/dL (28-217); Urine Protein Random 6 mg/dL
[2023-12-29 13:40] LABS: UPRO/UCREAT Ratio 0.13 mg/mg CR
== END 2023-12-29 14:40 | disposition home or self-care (01) ==
LOC: OPOB 11:07 → OBGYN 11:09
PROVIDERS: PCP Nurse Practitioner Family; Visit Provider Obstetrics & Gynecology
DX: O16.9 Unspecified maternal hypertension, unspecified trimester (principal); Z3A.00 Weeks of gestation of pregnancy not specified
CPT/HCPCS: 36415; 59025; 80053; 81001; 82570; 84156; 84550; 85025

== ENCOUNTER 2024-01-01 11:42 | Outpatient (CLI) | payer BC, MEDICAID, SELFPAY ==
[2024-01-01] VITALS (12 sets, daily range): BP systolic 132–182; BP diastolic 88–110; PULSE 100–147; RESP 15–17; TEMP 36.6; BMI 41.1
[2024-01-01] MEDS: acetaminophen 500 mg Tablet 1000 MG PO (14:08)
[2024-01-05 14:48] LABS: Urine Total Protein 16.5 mg/dL (0-150)
[2024-01-05 15:11] LABS: Total Volume, Urine 1300 mL; Urine Total Protein 24 Hour 214.5 mg/24hr (0-150)
== END 2024-01-01 15:00 | disposition home or self-care (01) ==
LOC: OPOB 11:50 → OBGYN 14:44
PROVIDERS: PCP Nurse Practitioner Family; Visit Provider Obstetrics & Gynecology
DX: O26.899 Other specified pregnancy related conditions, unspecified trimester (principal); Z3A.00 Weeks of gestation of pregnancy not specified
CPT/HCPCS: 59025; 99211

== ENCOUNTER 2024-01-02 05:25 | Outpatient (CLI) | payer BC, MEDICAID, SELFPAY ==
[2024-01-02] VITALS (9 sets, daily range): BP systolic 107–140; BP diastolic 51–83; PULSE 105–127; RESP 16; BMI 41.0
--- NOTE | 2024-01-02 06:45 | USR_ITS ---
PROCEDURE INFORMATION: Exam: US Biophysical Profile Without Non-Stress Test Exam date and time: 01/02/2024 7:32 AM Age: 18 years old Clinical indication: Other: Bleeding; ; Additional info: Vaginal bleeding TECHNIQUE: Imaging protocol: US biophysical profile without non-stress testing. COMPARISON: [place] [id number] 12/24/2023 8:03 AM FINDINGS: heart rate: 145 bpm Amniotic fluid index: JAH is 17.67 cm. BIOPHYSICAL PROFILE: breathing (BPP): 2 out of 2. gross body movement (BPP): 2 out of 2. tone (BPP): 2 out of 2. Amniotic fluid (BPP): 2 out of 2. US/US OB BPP wo NST [id number] IMPRESSION: Normal biophysical profile
[2024-01-02 07:12] LABS: Urine Appearance Slightly Cloudy (CLEAR); Urine Color Red (Yellow); pH Urine 7 (5-7)
[2024-01-02 07:13] LABS: Add Urine Culture? No; Bacteria Urine 2+ /hpf; Bilirubin Urine Neg (Negative); Blood Urine 3+ (Negative); Glucose Urine UA Norm (Normal); Ketones Urine 1+ (Negative); Leukocyte Esterase Urine Trace (Negative); Nitrate Urine Negative (Negative); Protein Urine 1+ (Negative); Urobilinogen Urine Norm (Negative)
[2024-01-02] MEDS: NIFEdipine 10 mg Capsule 30 MG PO (07:18)
[2024-01-02] MEDS: nitrofurantoin SR (BID) 100 mg Capsule PO (09:05)
[2024-01-02] MEDS: acetaminophen 500 mg Tablet PO (09:06)
[2024-01-02] MEDS: terbutaline 1 mg/mL INJ 0.25 MG SUBCUT (09:06)
== END 2024-01-02 09:30 ==
LOC: OPOB 05:28 → OBGYN 05:36
PROVIDERS: PCP Obstetrics & Gynecology; Visit Provider Obstetrics & Gynecology
DX: O46.90 Antepartum hemorrhage, unspecified, unspecified trimester (principal); Z3A.00 Weeks of gestation of pregnancy not specified; R10.9 Unspecified abdominal pain
CPT/HCPCS: 76819; 81001; 96372; J3105

== ENCOUNTER → 2024-01-05 14:25 | Outpatient (BNVA) | payer BC, MEDICAID, SELFPAY | PROVIDERS: PCP Obstetrics & Gynecology; Visit Provider Obstetrics & Gynecology | DX: Z34.90 Encounter for supervision of normal pregnancy, unspecified, unspecified trimester (principal); Z3A.00 Weeks of gestation of pregnancy not specified | CPT/HCPCS: 84315; 87081 ==

== ENCOUNTER 2024-01-08 11:05 | Outpatient (CLI) | payer BC, MEDICAID, SELFPAY ==
[2024-01-08 11:05] VITALS: BMI 41.0
[2024-01-08 11:18] VITALS: BP 169/104; PULSE 129
[2024-01-08 11:36] VITALS: BP 139/83; PULSE 100
[2024-01-08 11:48] VITALS: BP 135/77; PULSE 99
== END 2024-01-08 11:58 ==
LOC: OPOB 11:08 → OBGYN 11:09
PROVIDERS: PCP Obstetrics & Gynecology; Visit Provider Obstetrics & Gynecology
DX: O16.9 Unspecified maternal hypertension, unspecified trimester (principal); Z3A.00 Weeks of gestation of pregnancy not specified
CPT/HCPCS: 59025

== ENCOUNTER 2024-01-12 13:30 | Outpatient (CLI) | payer BC, MEDICAID, SELFPAY ==
[2024-01-12 13:30] VITALS: RESP 17; BMI 41.6
[2024-01-12 13:41] VITALS: BP 157/100; PULSE 97
[2024-01-12 13:58] VITALS: BP 135/96; PULSE 103
[2024-01-12 14:11] VITALS: BP 140/93; PULSE 107
[2024-01-12 14:34] VITALS: BP 140/84; PULSE 118
[2024-01-12 14:55] VITALS: BP 160/107; PULSE 108
== END 2024-01-12 15:01 | disposition home or self-care (01) ==
LOC: OPOB 13:32 → OBGYN 13:33
PROVIDERS: PCP Obstetrics & Gynecology; Visit Provider Obstetrics & Gynecology
DX: O24.419 Gestational diabetes mellitus in pregnancy, unspecified control (principal); Z3A.00 Weeks of gestation of pregnancy not specified
CPT/HCPCS: 59025

== ENCOUNTER 2024-01-15 12:49 | Outpatient (CLI) | payer BC, MEDICAID, SELFPAY ==
[2024-01-15 13:18] VITALS: BP 144/94; PULSE 99
[2024-01-15 13:33] VITALS: BP 150/92; PULSE 94
[2024-01-15 13:47] VITALS: BP 147/89; PULSE 101
== END 2024-01-15 13:50 | disposition home or self-care (01) ==
LOC: OPOB 12:50 → OBGYN 12:52
PROVIDERS: PCP Obstetrics & Gynecology; Visit Provider Obstetrics & Gynecology
DX: O26.899 Other specified pregnancy related conditions, unspecified trimester (principal); Z3A.00 Weeks of gestation of pregnancy not specified
CPT/HCPCS: 59025

== ENCOUNTER 2024-01-19 07:07 | Inpatient (IN) | payer BC, MEDICAID, SELFPAY ==
[2024-01-19] VITALS (40 sets, daily range): BP systolic 130–177; BP diastolic 89–111; PULSE 83–126; TEMP 35.8–35.9; BMI 41.3
[2024-01-19 08:36] LABS: Basophils % 0.3 %; Eosinophils # 0.1 10^3/uL (0.0-0.8); Eosinophils % 1.1 %; Hematocrit 35.4 % (36-47); Lymphocytes % 16.6 %; Mean Corpuscular HGB Conc 33.9 g/dL (30-55); Mean Corpuscular Hemoglobin 28.5 pg (27-33); Mean Corpuscular Volume 84.1 fl (85-98); Mean Platelet Volume 12.3 fL (7.4-10.4); Monocytes % 8.9 %; Neutrophils % 72.4 %; Nucleated Red Blood Cells % 0 %; Platelet Count 292 10^3/cmm (157-399); Red Blood Count 4.21 10^6/uL (3.85-5.65); Red Cell Distribution Width 13.8 % (12.1-15.1); White Blood Count 11.74 10^3/uL (4.5-13.0)
--- NOTE | 2024-01-19 09:15 | PM.OBGYHP ---
Providers/Chief Complaint Admitting Physician: Fritz Johnson MD Primary FINE CHEMICALS OPERATOR: Fritz Johnson MD Primary Care Provider: Fritz Johnson MD Chief Complaint: IOL HPI FINE CHEMICALS OPERATOR History of Present Illness Dominga Díaz is a 18 year old female G1 EDC February 01, 2024 At 38 w 0 d Transfer of care from [facility] at 32 weeks Was diagnosed with chronic hypertension Was already on labetolol States had high blood pressure as a teenager but did not have evaluation, e.g., for renal disease BPs during visits have been intermittently elevated No headaches, abdominal pain, swelling Was switched from labetolol to Procardia 30 mg PO BID BPs improved Presently on Procardia 30 mg XL BID 24 ? h protein done here on December 17, 2023 showed 191 mg per 24 hours 24-h protein repeated January 05, 2024 showed 216 mg PMHx: hypertension PSHx: none Meds: Procardia 30 mg XL BID Baby asa Present Details : 1 Para: 0 Date of Last Menstrual Period: 04/27/23 Calculated Date of Delivery: 02/01/24 Gestational Age Based on Last Menstrual Period: 38 Labs Rubella: Immune RPR: Negative GBS: Negative Medications/Allergies Home Medications Medication Instructions Recorded Confirmed Last Taken Type aspirin 81 mg tablet,delayed 81 mg PO DAILY 08/01/23 01/19/24 01/18/24 History release (Adult Aspirin Regimen) [id number] 1 mg 1 tab PO DAILY 11/23/23 01/19/24 01/18/24 History tablet nifedipine 30 mg tablet,extended 30 mg PO BID #60 tabs 01/12/24 01/19/24 01/18/24 Rx release 24 hr (Procardia XL) Allergies Allergy/AdvReac Type Severity Reaction Status Date / Time No Known Allergies Allergy Verified 01/15/24 15:14 PFSH FINE CHEMICALS OPERATOR PFSH: Medical History Hypertension History of ovarian cyst No pertinent family history Surgical History No pertinent past surgical history Family History Mother Diabetes Hypertension Father Hypertension Denies family history of Colon cancer Ovarian cancer Prostate cancer Heart disease Breast cancer Uterine cancer Thyroid disease Stroke Social History Smoking and tobacco/nicotine status: never used tobacco/nicotine Personal Safety: Do you feel safe at home: Yes Victim of physical abuse: No Victim of emotional abuse: No Victim of sexual abuse: No Would you like help information on resources?: No History History History 1 Term 0 0 Miscarriages/Ectopic 0 Living Children 0 Care VERONICA Calculator Estimated Delivery Date Method Current WG Current Estimate 02/01/24 LMP (Certain) 38w 1d Other Estimates 02/05/24 Ultrasound #1 37w 4d Vitals/I&O/Wt Last Vital Signs Temp 96.4 F L 01/19/24 13:33 Pulse 109 H 01/19/24 19:44 BP 153/102 01/19/24 19:44 O2 Del Method Room Air 01/19/24 07:10 Weight last 48 hrs Weight 256 lb Physical Exam Narrative: Weight 260 lbs; 5?5?, BMI 40 VS 137 / 95; 141 / 90; 143 / 97 General: comfortable, awake, alert Lungs: clear Cor: RRR FH 37 cm, cephalic Cervix: 1 cm / 50 / -3 / posterior Ext: no edema External monitor: heart tracing good variability, + accelerations Data 01/19/24 07:50 Results Labs OB ([facility]): Obstetrics US 12/24/23 Obstetrics US/Biophysical Profile 01/02/24 Blood Type O Positive 01/19/24 Antibody Screen Negative 01/19/24 Hct 35.4 % (36-47) L 01/19/24 Hgb 12.00 g/dL (12.4-14.8) L 01/19/24 Rho(D) Type Rh positive 01/19/24 Plt Count 292 10^3/cmm (157-399) 01/19/24 Uric Acid 4.9 mg/dL (2.4-5.7) 12/29/23 Ser , Semi-Qnt 19213.00 mIU/mL 08/08/23 HCG, Qual Negative (Negative) 12/16/22 Micro Urine Specimen 11/02/21 A&P Assessment and plan (1) Encounter for induction of labor: 38 w 0 d h/o chronic hypertension presently on Procardia 30 mg XL BID BPs elevated No evidence of preeclampsia admit for induction of labor plan Cytotec 25 ug intravaginal Attestations Medical Necessity Statement*: patient at 38 w 0 d, with chronic hyertension, admitted for induction of labor Coding Level of Care Code Acute Code for Chg Fwd Diagnoses Encounter for induction of labor Z34.90 Time Spent (min) 30
[2024-01-19] MEDS: NIFEdipine ER (24 hr) 30 mg Tablet PO ×2 (11:13→17:54)
[2024-01-19] MEDS: miSOPROStol 100 mcg tablet 25 MCG VAGINAL ×2 (11:50→21:29)
[2024-01-19] MEDS: dextrose 5%-lactated ringers 1,000 ML 125 ML IV (17:37)
[2024-01-19] MEDS: lactated ringers 1,000 ML 999 ML IV (23:30)
[2024-01-20] VITALS (106 sets, daily range): BP systolic 103–179; BP diastolic 64–133; PULSE 72–142; RESP 16–18; TEMP 35.8–35.9; O2SAT 98–99
[2024-01-20] MEDS: lactated ringers 1,000 ML 999 ML IV ×2 (00:35→04:00)
--- NOTE | 2024-01-20 00:38 | P.ANESASSM_ITS ---
Pre-Anesthetic Assessment Height/Weight: Height 1.68 m Weight 116.12 kg Temp Pulse BP O2 Del Method 96.4 F L 89 158/99 Room Air 01/19/24 13:33 01/20/24 00:25 01/20/24 00:25 01/19/24 07:10 Preop Diagnosis: labor pain epidural Was Beta [place] taken within 24 hours: Yes Was Clonidine taken within 24 hours: N/A Exam alert, oriented x 3, clear to auscultation bilaterally and regular rate & rhythm Airway Submandibular: within normal limits Cervical ROM: within normal limits Mallampati: Class II Dentition: full Pulmonary Asthma (as a child no issues as an adult) and None reported CV/HEM Hypertension None reported Hepatic None reported GI Gastroesophageal Reflux Disease Metabolic None reported Musc/skel Scoliosis Neuropsych None reported Anesthetic Plan ASA status: 2 Anesthesia: Regional (specify below) Risk of > 500 ml blood loss (7ml/kg in children): No Medications/Allergies Home Medications Medication Instructions Recorded Confirmed Last Taken Type aspirin 81 mg tablet,delayed 81 mg PO DAILY 08/01/23 01/19/24 01/18/24 History release (Adult Aspirin Regimen) [id number] 1 mg 1 tab PO DAILY 11/23/23 01/19/24 01/18/24 History tablet nifedipine 30 mg tablet,extended 30 mg PO BID #60 tabs 01/12/24 01/19/24 01/18/24 Rx release 24 hr (Procardia XL) Allergies Allergy/AdvReac Type Severity Reaction Status Date / Time No Known Allergies Allergy Verified 01/15/24 15:14 Current Medications Generic Name Dose Route Start Last Admin Trade Name Adam PRN Reason Stop Dose Admin Dextrose/Lactated Ringer's 1,000 mls @ 125 mls/hr 01/19/24 08:15 01/19/24 17:37 Dextrose 5%-Lactated Ringers IV 125 mls/hr .Q8H GAMALIEL Administration Misoprostol 25 mcg 01/19/24 11:40 01/19/24 11:50 Misoprostol 100 Mcg Tablet VAGINAL 25 mcg ONCE PRN Administration LABOR INDUCTION Nifedipine 30 mg 01/19/24 11:04 01/19/24 17:54 Nifedipine Er (24 Hr) 30 Mg Tablet PO 30 mg BID GAMALIEL Administration [facility] Anesthesia Medical History Hypertension History of ovarian cyst No pertinent family history Surgical History No pertinent past surgical history Family History Mother Diabetes Hypertension Father Hypertension Denies family history of Colon cancer Ovarian cancer Prostate cancer Heart disease Breast cancer Uterine cancer Thyroid disease Stroke Social History Smoking and tobacco/nicotine status: never used tobacco/nicotine Female Reproductive History Date of last menstrual period: 04/27/23 : 1 Spontaneous abortions: No Data Anesthesia 01/19/24 07:50 Short CBC 01/19/24 Range/Units 07:50 WBC 11.74 (4.5-13.0) 10^3/uL Hgb 12.00 L (12.4-14.8) g/dL Hct 35.4 L (36-47) % MCV 84.1 L (85-98) fl Plt Count 292 (157-399) 10^3/cmm Neut % (Auto) 72.4 % Neut # (Auto) 8.50 H (1.8-8.0) 10^3/uL Blood Bank 01/19/24 07:50 Blood Type O Positive Rho(D) Type Rh positive Antibody Screen Negative Cardiac Studies: 2 Echocardiogram 11/05/23
[2024-01-20] MEDS: ROPivacaine syringe 100 MG/50 ML SYRINGE 13 MG EPIDURAL ×5 (01:02→14:22)
--- NOTE | 2024-01-20 01:06 | ANES.PROC ---
Anesthesia Procedures Procedure/Date: 01/20/24 epidural Procedure Narrative: epidural complete, bolus given, epidural pump initiated with PIPE MACHINE OPERATOR education given, vitals taken during procedure and satisfactory throughout, patient admits to decrease pain, report of procedure to OB RN Epidural: Time Out Performed: Yes Consents Signed: Procedure Consent Consent: requested by attending/covering physician, from patient, risks and benefits reviewed and patient agrees to proceed Lumbar Level: L3-L4 Epidural position: sitting Epidural procedure: sterile prep of area, 1% lidocaine to numb the area (3 mL), 18 g needle, negative for paresthesia passed, neg for paresthesia, test dose given, 1.5% xylocaine 1:200k epi (5 mL), 0.2% Ropivacaine bolus ml (5 mL), placed PCEA, no systemic response, sterile dressing applied, L.U.D. no apparent complications and 0.2% Ropiavacaine @ mls/hr (13 mL/hr)
--- NOTE | 2024-01-20 01:10 | P.PN_ITS ---
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 Subjective: Interval history: Fetus reassuring Patient comfortable with epidural Received two doses of Cytotec 25 ug intravaginal Cervix: FT / 50% / -4 / mid / soft Labor: Station: -4 Amniotic Membrane Status: Intact Monitor Mode: Palpation Contraction Pattern: Regular Vitals/I&O/Wt Last Vital Signs Temp 96.4 F L 01/19/24 13:33 Pulse 112 H 01/20/24 03:02 BP 123/73 01/20/24 03:02 Pulse Ox 99 01/20/24 01:26 O2 Del Method Room Air 01/19/24 07:10 01/19/24 01/19/24 01/20/24 14:59 22:59 06:59 Intake Total 2734.417 / 2734.417 Balance 2734.417 / 2734.417 Weight last 48 hrs Weight 256 lb Physical Exam 2 Urinary Catheter Management: Bates: Cath Placed During This Visit: yes Urinary Catheter Date of Insertion: 01/20/24 Urinary Catheter Time of Insertion: 01:45 Data 01/19/24 07:50 A&P Assessment and plan (1) Encounter for induction of labor: (2) Hypertension: Attestations 2 Medical Necessity Statement*: patient at 38 w 0 d, with chronic hypertension, admitted for induction of labor Coding Level of Care Code Acute Code for Chg Fwd Diagnoses Encounter for induction of labor Z34.90 Hypertension I10 Time Spent (min) 20
[2024-01-20] MEDS: calcium carbonate 500 mg Chew Tablet 1000 MG PO (02:14)
[2024-01-20] MEDS: dextrose 5%-lactated ringers 1,000 ML 125 ML IV (04:28)
[2024-01-20] MEDS: ondansetron 2 mg/ML SDV 2 mL 4 MG IVP ×2 (06:43→18:04)
[2024-01-20] MEDS: oxytocin 30 UNIT/500 ML BAG IV (09:00)
[2024-01-20] MEDS: NIFEdipine ER (24 hr) 30 mg Tablet PO ×2 (11:38→18:56)
[2024-01-20] MEDS: alum-mag-hydroxide-sime 30 mL UDC PO (14:23)
--- NOTE | 2024-01-20 17:45 | P.PCNOB_ITS ---
Delivery Note: Date of delivery: January 20, 2024 Pre-delivery diagnoses: 38 w 0 d chronic hypertension admitted for induction of labor Post-delivery diagnoses: 38 w 0 d chronic hypertension admitted for induction of labor vaginal delivery second-degree perineal laceration, repaired Procedure: induction of labor vaginal delivery repair of second-degree perineal laceration Op report anesthesia: Epidural Delivering Physician: Fritz Johnson MD Estimated blood loss (mL): 300 Findings: , vigorous female Cord gases and blood obtained Normal placenta and cord Second-degree perineal laceration repaired EBL: 300 cc No complications Pre-Delivery Course: 18 y.o. G1 at 38 w 0 d h/o chronic hypertension, predating has been having intermittently elevated BPs as high as 160 / 110 on procardia 30 mg XL BID 24-h urine has shown protein to be in th e normal range patient admitted for induction of labor due to elevated BPs, without preeclampsia or severe features cytotec was given pitocin was given patient progressed to complete had vaginal delivery of vigorous infant Delivery: vaginal Post-Delivery Status: had mild hemorrhage, controlled with rectal administration of cytotec patient also had elevated BPs in the severe range after delivery MgSO4 was started History History History 1 Term 0 0 Miscarriages/Ectopic 0 Living Children 0 A&P Assessment and plan (1) Vaginal delivery: Coding Level of Care Code Acute Code for Chg Fwd Diagnoses Vaginal delivery O80 Time Spent (min) 120
[2024-01-20] MEDS: miSOPROStol 200 mcg Tablet 800 MCG PR (17:48)
[2024-01-20] MEDS: tranexamic acid 1,000 MG/100 ML PREMIX 600 MG IV (17:49)
[2024-01-20] MEDS: magnesium sulfate premix 4 GM/100 ML PREMIX IV (19:58)
[2024-01-20] MEDS: magnesium sulfate premix 20 GM/500 ML BAG IV (20:24)
[2024-01-20] MEDS: ibuprofen 800 mg tablet PO (21:25)
[2024-01-20] MEDS: lanolin oint 7 gm 1 APPLIC TOPICAL (23:55)
[2024-01-20] MEDS: benzocaine-menthol 78 gm Canister 1 SPRAY TOPICAL (23:55)
[2024-01-21] VITALS (26 sets, daily range): BP systolic 127–170; BP diastolic 73–111; PULSE 89–136; RESP 16; TEMP 36.7; O2SAT 96–98
[2024-01-21] MEDS: dextrose 5%-lactated ringers 1,000 ML 125 ML IV ×2 (01:00→14:18)
[2024-01-21 02:32] LABS: Magnesium Level (OB Only) 4.1 mg/dL (5.0-7.5)
[2024-01-21] MEDS: magnesium sulfate premix 20 GM/500 ML BAG IV ×2 (05:07→14:17)
[2024-01-21 06:07] LABS: Hematocrit 29.8 % (36-47); Mean Corpuscular HGB Conc 33.9 g/dL (30-55); Mean Corpuscular Volume 85.6 fl (85-98); Mean Platelet Volume 11.9 fL (7.4-10.4); Platelet Count 270 10^3/cmm (157-399); Red Blood Count 3.48 10^6/uL (3.85-5.65); Red Cell Distribution Width 13.9 % (12.1-15.1); White Blood Count 18.47 10^3/uL (4.5-13.0)
[2024-01-21] MEDS: docusate sodium 100 mg Capsule PO ×2 (08:31→20:05)
[2024-01-21] MEDS: PRENATAL VIT NO.130/IRON/FOLIC 1 EACH TABLET PO (08:31)
[2024-01-21] MEDS: NIFEdipine ER (24 hr) 30 mg Tablet 60 MG PO (08:31)
[2024-01-21 09:03] LABS: Magnesium Level (OB Only) 4.1 mg/dL (5.0-7.5)
--- NOTE | 2024-01-21 12:55 | P.PN_ITS ---
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 Subjective 2 Subjective: Interval history: No c/o No headaches Eating well No bleeding Patient had significantly elevated BPs following delivery Was started on MgSO4 4 gms loading dose and 2 Gms/h Also started on Procardia 60 mg XL one po daily Labor: Station: +2 Amniotic Membrane Status: Intact Monitor Mode: External Contraction Pattern: Regular Vitals/I&O/Wt Last Vital Signs Temp 98.1 F 01/22/24 14:25 Pulse 91 01/22/24 14:25 Resp 16 01/22/24 04:30 BP 142/81 01/22/24 14:25 Pulse Ox 97 01/22/24 09:38 O2 Del Method Room Air 01/22/24 14:25 Physical Exam 2 Narrative: General: comfortable, awake, alert VS normal. BPs better Lungs: clear Cor: RRR Abd: soft, nontender. Fundus firm Ext: 1+ edema Urinary Catheter Management: Bates: Cath Placed During This Visit: yes, but has since been removed by the nurse Reason for Continuing Indwelling Catheter: Decision to DC Catheter Urinary Catheter Date of Insertion: 01/20/24 Urinary Catheter Time of Insertion: 20:15 Date Urinary Catheter Removed: 01/21/24 Time Urinary Catheter Discontinued: 20:45 Data 01/21/24 05:55 A&P Assessment and plan (1) Vaginal delivery: PPD #1 vaginal delivery induced at 38 weeks for chronic hypertension Doing well Continue care (2) Hypertension: Hypertension with superimposed pre-eclampsia Plan continue MgSO4 until 24-hours after delivery Continue Procardia 60 mg PO daily Attestations 2 Medical Necessity Statement*: patient induced at 38 weeks for hypertension, s/p vaginal delivery, with preeclampsia Coding Level of Care Code Acute Code for Chg Fwd Diagnoses Vaginal delivery O80 Hypertension I10 Time Spent (min) 45
[2024-01-21] MEDS: ibuprofen 800 mg tablet PO ×2 (14:17→20:05)
--- NOTE | 2024-01-21 15:12 | ANE.PACU2 ---
Inpatient post-anesthesia follow up: Airway intact: Yes Vital signs: Temperature 98.1 F Pulse Rate 91 Respiratory Rate 16 Blood Pressure 142/81 Pulse Oximetry 97 Oxygen Delivery Me thod Room Air Oxygen Flow Rate Fraction of Inspir ed Oxygen Hydration adequate: Yes Nausea and vomiting: No Pain level: 1 Mental status: Baseline Epidural Start/End: Epidural Start Date: 01/20/24 Epidural Start Time: 00:49 Epidural End Date: 01/20/24 Epidural End Time: 18:47
--- NOTE | 2024-01-21 19:17 | PC.NURSE ---
1805 Magnesium stopped per order, pt up to chair, bed change, catheter left in due to pt needing standby assistance to ambulate to chair. All Iv's PIID.
[2024-01-22 04:30] VITALS: BP 132/83; PULSE 94; RESP 16; TEMP 36.8; O2SAT 98
[2024-01-22] MEDS: ibuprofen 800 mg tablet PO (08:48)
[2024-01-22] MEDS: docusate sodium 100 mg Capsule PO (08:49)
[2024-01-22] MEDS: PRENATAL VIT NO.130/IRON/FOLIC 1 EACH TABLET PO (08:49)
[2024-01-22] MEDS: NIFEdipine ER (24 hr) 30 mg Tablet 60 MG PO (08:52)
[2024-01-22 09:38] VITALS: BP 134/90; PULSE 87; TEMP 36.8; O2SAT 97
--- NOTE | 2024-01-22 11:50 | P.PN_ITS ---
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 fundus firm Ext: no edema; nontender Urinary Catheter Management: Bates: Cath Placed During This Visit: yes, but has since been removed by the nurse Reason for Continuing Indwelling Catheter: Decision to DC Catheter Urinary Catheter Date of Insertion: 01/20/24 Urinary Catheter Time of Insertion: 20:15 Date Urinary Catheter Removed: 01/21/24 Time Urinary Catheter Discontinued: 20:45 Data 01/21/24 05:55 A&P Assessment and plan (1) Vaginal delivery: PPD #2 doing well discharge to home today instructions and precautions given (2) Hypertension: Hypertension with superimposed pre-eclampsia BPs better Continue Procardia 60 mg PO daily Attestations 2 Medical Necessity Statement*: patient s/p vaginal delivery, plan to discharge to home today Coding Level of Care Code Acute Code for Chg Fwd Diagnoses Vaginal delivery O80 Hypertension I10 Time Spent (min) 20
--- NOTE | 2024-01-22 12:05 | PM.OBGYDC ---
Discharge Providers APARTMENT COMMUNITY ASSISTANT MANAGER Date of Admission: 01/19/24 07:07 Date of Discharge: 01/22/24 Attending Provider at Admission: Fritz Johnson MD Attending Provider at Discharge: Fritz Johnson MD Consults: none Primary APARTMENT COMMUNITY ASSISTANT MANAGER: Fritz Johnson MD Primary Care Provider: Fritz Johnson MD Diagnoses at Discharge Discharge Diagnosis (1) Vaginal delivery: Details from hospital stay: 18 y.o. G1 at 38 w 0 d h/o chronic hypertension, predating has been having intermittently elevated BPs as high as 160 / 110 on procardia 30 mg XL BID 24-h urine has shown protein to be in the normal range patient admitted for induction of labor due to elevated BPs, without preeclampsia or severe features cytotec was given pitocin was given patient progressed to complete had vaginal delivery of vigorous had mild hemorrhage, controlled with rectal administration of cytotec patient also had elevated BPs in the severe range after delivery MgSO4 was started and maintained for 24-h after delivery patient was continued on Procardia 60 mg PO daily Her BPs improved remainder of course was uneventful and patient was discharged to home on second day Status: Acute (2) Hypertension: Status: Acute Reason for Visit Reason for Visit: IOL Brief History: 18 y.o. G1 at 38 w 0 d h/o chronic hypertension, predating has been having intermittently elevated BPs as high as 160 / 110 on procardia 30 mg XL BID 24-h urine has shown protein to be in the normal range patient admitted for induction of labor due to elevated BPs, without preeclampsia or severe features Hospital Course Hospital Course patient admitted for induction of labor due to elevated BPs, without preeclampsia or severe features cytotec was given pitocin was given patient progressed to complete had vaginal delivery of vigorous infant had mild hemorrhage, controlled with rectal administration of cytotec patient also had elevated BPs in the severe range after delivery MgSO4 was started and maintained for 24-h after delivery patient was continued on Procardia 60 mg PO daily Her BPs improved remainder of course was uneventful and patient was discharged to home on second day Information Peripartum Data: Infant Delivery Method: Vaginal Laceration description: Perineal - 2nd Degree Episiotomy description: None complications: other Additional Peripartum Information: mild hemorrhage preeclampsia with severe hypertension Physical Exam Narrative: afebrile, VS normal comfortable, awake, alert Abd: soft, nontender. fundus firm Ext: no edema; nontender Urinary Catheter Management: Bates: Cath Placed During This Visit: yes, but has since been removed by the nurse Reason for Continuing Indwelling Catheter: Decision to DC Catheter Urinary Catheter Date of Insertion: 01/20/24 Urinary Catheter Time of Insertion: 20:15 Date Urinary Catheter Removed: 01/21/24 Time Urinary Catheter Discontinued: 20:45 History History History 1 Term 0 0 Miscarriages/Ectopic 0 Living Children 0 Discharge Data Studies Completed and Pending Laboratory Results WBC 18.47 10^3/uL (4.5-13.0) H 01/21/24 05:55 RBC 3.48 10^6/uL (3.85-5.65) L 01/21/24 05:55 Hgb 10.10 g/dL (12.4-14.8) L 01/21/24 05:55 Hct 29.8 % (36-47) L 01/21/24 05:55 MCV 85.6 fl (85-98) 01/21/24 05:55 MCH 29.0 pg (27-33) 01/21/24 05:55 MCHC 33.9 g/dL (30-55) 01/21/24 05:55 RDW 13.9 % (12.1-15.1) 01/21/24 05:55 Plt Count 270 10^3/cmm (157-399) 01/21/24 05:55 MPV 11.9 fL (7.4-10.4) H 01/21/24 05:55 Neut % (Auto) 72.4 % 01/19/24 07:50 Lymph % (Auto) 16.6 % 01/19/24 07:50 [place] % (Auto) 8.9 % 01/19/24 07:50 Eos % (Auto) 1.1 % 01/19/24 07:50 Baso % (Auto) 0.3 % 01/19/24 07:50 Neut # (Auto) 8.50 10^3/uL (1.8-8.0) H 01/19/24 07:50 Lymph # (Auto) 2.0 10^3/uL (1.5-6.5) 01/19/24 07:50 [place] # (Auto) 1.0 10^3/uL (0.2-0.9) H 01/19/24 07:50 Eos # (Auto) 0.1 10^3/uL (0.0-0.8) 01/19/24 07:50 Baso # (Auto) 0.0 10^3/uL (0.0-0.1) 01/19/24 07:50 Nucleated RBC % (auto) 0 % 01/19/24 07:50 Nucleated RBCs # 0.0 /100WBC 01/19/24 07:50 Magnesium 4.1 mg/dL (5.0-7.5) L* 01/21/24 08:30 Blood Type O Positive 01/19/24 07:50 Rho(D) Type Rh positive 01/19/24 07:50 Antibody Screen Negative 01/19/24 07:50 Procedures Performed induction of labor vaginal delivery management of hemorrhage management of preeclampsia Vitals Last Vital Signs Temp 98.1 F 01/22/24 14:25 Pulse 91 01/22/24 14:25 Resp 16 01/22/24 04:30 BP 142/81 01/22/24 14:25 Pulse Ox 97 01/22/24 09:38 O2 Del Method Room Air 01/22/24 14:25 Results Labs OB ([facility]): Obstetrics US 12/24/23 Obstetrics US/Biophysical Profile 01/02/24 Blood Type O Positive 01/19/24 Antibody Screen Negative 01/19/24 Hct 29.8 % (36-47) L 01/21/24 Hgb 10.10 g/dL (12.4-14.8) L 01/21/24 Rho(D) Type Rh positive 01/19/24 Plt Count 270 10^3/cmm (157-399) 01/21/24 Uric Acid 4.9 mg/dL (2.4-5.7) 12/29/23 Ser , Semi-Qnt 87401.00 mIU/mL 08/08/23 HCG, Qual Negative (Negative) 12/16/22 Micro Urine Specimen 11/02/21 Discharge Plan Discharge Patient Disposition: Home Condition: Stable Prescriptions: New Procardia XL 60 mg tablet extended release 24hr 60 mg PO DAILY Qty: 30 1RF Continued xtispqjx-deh-Qa-FA 1 mg Tablet 1 tab PO DAILY Discontinued aspirin [Adult Aspirin Regimen] 81 mg tablet,delayed release (DR/EC) 81 mg PO DAILY nifedipine [Procardia XL] 30 mg tablet extended release 24hr 30 mg PO BID Qty: 60 1RF Discharge Orders: Discharge Order (Routine); Ordered 01/22/24 Ordered By: Fritz Johnson Referrals: Fritz Johnson MD [Primary Care Provider] - 1 week (1 week follow up appointment scheduled for @2:00pm with Dr. Johnson at [facility]. 6 week follow up appointment scheduled for Mar.03 @9:45am with Dr. Johnson at [facility]. ) Discharge Diet: Usual diet Discharge Activity: Increase activity as tolerated Patient Instructions: Depression (DC), Opioid Safety (DC), Preeclampsia and Eclampsia After Delivery (GEN), Hemorrhage (DC), OB Discharge Report, OB Food/Drug Interaction Guide, Opioid Safety, OB Home Care, OB Vaginal Deliveries - [facility], Abnormal Bleeding Activity Restrictions/Additional Instructions: Return to see me in 1-2 weeks call / go to ER if headache, blurry vision, dizziness, chest pain, shortness of breath, leg swelling, leg pains. Discharge Attestations APARTMENT COMMUNITY ASSISTANT MANAGER Time Spent in Discharge Care*: less than 30 min Coding Level of Care Code Acute Code for Chg Fwd Diagnoses Vaginal delivery O80 Hypertension I10 Time Spent (min) 20
[2024-01-22 14:25] VITALS: BP 142/81; PULSE 91; TEMP 36.7
== END 2024-01-22 14:29 | disposition home or self-care (01) | DRG 806 ==
LOC: OBGYN 07:08
PROVIDERS: Admitting Provider Obstetrics & Gynecology; PCP Obstetrics & Gynecology; Visit Provider Obstetrics & Gynecology
DX: O10.02 Pre-existing essential hypertension complicating childbirth (principal); O72.1 Other immediate postpartum hemorrhage; Z37.0 Single live birth; O70.1 Second degree perineal laceration during delivery; Z3A.38 38 weeks gestation of pregnancy; O14.15 Severe pre-eclampsia, complicating the puerperium; Z79.82 Long term (current) use of aspirin
CPT/HCPCS: 36415; 51702; 59025; 59409; 83735; 85025; 85027; 86850; 86900; 96374; 96376; 98960; 99211; J2405; J2590; J2795; J3475; J7120; J7121

== ENCOUNTER 2024-02-01 18:24 | Emergency (ER) | payer BC, MEDICAID, SELFPAY ==
--- NOTE | 2024-02-01 18:29 | ECG_ITS ---
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 Measurements Intervals [place] Rate: 133 P: 57 PA: 138 QRS: 46 QRSD: 84 T: 26 QT: 306 QTc: 455 Interpretive Statements SINUS TACHYCARDIA ABNORMAL RHYTHM ECG No previous ECG available for comparison Electronically Signed On 02-02-2024 23:35:13 CDT by Gamaliel Ulrich M.D. [id number]
[2024-02-01 18:30] VITALS: BP 167/87; PULSE 135; RESP 22; TEMP 36.6; O2SAT 98; BMI 35.4
--- NOTE | 2024-02-01 18:40 | ED_ITS ---
HPI - SOB/Dyspnea General: Chief Complaint: Shortness of Breath/Dyspnea Stated Complaint: sob, hypertensive Time Seen by Provider: 02/01/24 18:26 Related Data Home Medications Medication Instructions Recorded Confirmed Unable to Assess 02/01/24 02/01/24 Allergies Allergy/AdvReac Type Severity Reaction Status Date / Time No Known Allergies Allergy Unverified 02/01/24 16:54 PFSH ED PFSH: Social History Smoking and tobacco/nicotine status: never used tobacco/nicotine Course Vital Signs: Vital signs: Vital Signs Temperature 97.8 F 02/01/24 18:30 Pulse Rate 135 H 02/01/24 18:30 Respiratory Rate 22 H 02/01/24 18:30 Blood Pressure 167/87 02/01/24 18:30 Pulse Oximetry 98 02/01/24 18:30 Oxygen Delivery Me thod Room Air 02/01/24 18:30 Discharge Plan Discharge Condition: Stable Prescriptions: No Action Unable to Assess Coding Level of Care Code ED Office Technology Professor for Sonido Rivers
== END 2024-02-01 18:51 | disposition home or self-care (01) ==
PROVIDERS: Emergency Provider Emergency Medicine
DX: R00.0 Tachycardia, unspecified (principal); R94.31 Abnormal electrocardiogram [ECG] [EKG]
CPT/HCPCS: 36415; 85025; 93005

== ENCOUNTER 2024-02-01 18:52 | Emergency (ER) | payer BC, MEDICAID, SELFPAY ==
[2024-02-01] VITALS (7 sets, daily range): BP systolic 107–156; BP diastolic 67–90; PULSE 96–137; RESP 17–39; O2SAT 97–100; BMI 35.4
--- NOTE | 2024-02-01 18:58 | CTR_ITS ---
PROCEDURE INFORMATION: Exam: CTA Chest With Contrast Exam date and time: 02/01/2024 7:34 PM Age: 18 years old Clinical indication: Dyspnea; Additional info: Tachycardia, dyspnea, delivered 2 weeks ago, preecclampsia TECHNIQUE: Imaging protocol: Computed tomographic angiography of the chest with contrast. Exam focused on the arteries. 3D rendering (Not supervised by radiologist): MIP and/or 3D reconstructed images were created by the technologist. Radiation optimization: All CT scans at this facility use at least one of these dose optimization techniques: automated exposure control; mA and/or kV adjustment per patient size (includes targeted exams where dose is matched to clinical indication); or iterative reconstruction. Contrast material: OMNI 350; Contrast volume: 74 ml; Contrast route: INTRAVENOUS (IV); COMPARISON: CR XR chest 1V portable [id number] 08/05/2022 9:52 PM RADIATION DOSE METRICS: Total DLP (mGy-cm): 422.31 FINDINGS: Pulmonary arteries: Normal. No pulmonary emboli. Aorta: Unremarkable. No aortic aneurysm. No aortic dissection. Lungs: Unremarkable. No consolidation. No masses. Pleural spaces: Unremarkable. No pneumothorax. No pleural effusion. Heart: Unremarkable. No cardiomegaly. No pericardial effusion. Lymph nodes: Unremarkable. No enlarged lymph nodes. Bones/joints: Unremarkable. No acute fracture. Soft tissues: Unremarkable. CT/CT angio chest PE protcl [id number] IMPRESSION: No acute findings.
--- NOTE | 2024-02-01 19:00 | ED_ITS ---
HPI - General Adult 2 General: Chief complaint: Shortness of Breath/Dyspnea Stated complaint: sob, tachy Time Seen by Provider: 02/01/24 18:58 History of Present Illness: Patient presents to the ER by EMS with complaints of tachycardia and shortness of breath. This started yesterday with sudden onset. Patient had spontaneous delivery approximately 10 days ago. Patient was preeclamptic during that time and is on Procardia for high blood pressure. Dr. Johnson did the delivery here spontaneous vaginal delivery, patient is on antibiotics for urinary tract infection. Related Data Home Medications Medication Instructions Recorded Confirmed [id number] 1 mg 1 tab PO DAILY 11/23/23 01/27/24 tablet Previous Rx's Medication Instructions Recorded nifedipine 60 mg tablet,extended 60 mg PO DAILY #30 tabs 01/22/24 release 24 hr (Procardia XL) cephalexin 500 mg capsule 500 mg PO Q6H 7 days #28 caps 02/01/24 Allergies Allergy/AdvReac Type Severity Reaction Status Date / Time No Known Allergies Allergy Verified 01/27/24 11:50 Review of Systems 2 General: Reports: 10 or more systems reviewed and unremarkable except in HPI and below PFSH ED 2 PFSH: Medical History Vaginal delivery Encounter for induction of labor Hypertension History of ovarian cyst No pertinent family history Surgical History No pertinent past surgical history Family History Mother Diabetes Hypertension Father Hypertension Denies family history of Colon cancer Ovarian cancer Prostate cancer Heart disease Breast cancer Uterine cancer Thyroid disease Stroke Social History Smoking and tobacco/nicotine status: never used tobacco/nicotine Female Reproductive History: Spontaneous abortions: No Physical Exam 2 Const: COMMON NORMALS: no acute distress, average body habitus, patient oriented x3, no limitations, healthy appearing, alert and well nourished Eye: COMMON NORMALS: Equal, round and reactive pupils present, EOMs intact bilaterally, conjunctivae normal and no scleral icterus CONJUNCTIVA: Yes conjunctivae normal PUPIL: Yes Equal, round and reactive pupils present Neck/C-Spine: COMMON NORMALS: no JVD Chest: COMMONS NORMALS: normal inspection of the chest and normal palpation of entire chest wall Resp: COMMON NORMALS: normal respiratory effort, No retractions, No use of accessory muscles and clear to auscultation bilaterally AUSCULTATION: clear to auscultation bilaterally Cardio: COMMON NORMALS: no JVD, regular rhythm, S1 normal heart sound present, S2 normal heart sound present, No gallops present (Cardio), No clicks present (Cardio), No murmurs present (Cardio) and No rub (Cardio); negative for regular rate (Tachycardic) RATE: abnormal rate (Tachycardic) RHYTHM: regular rhythm HEART SOUNDS: S1 normal heart sound present and S2 normal heart sound present GI: COMMON NORMALS: Normal to inspection, nondistended, normoactive bowel sounds present, Soft to palpation, non-tender, No hepatosplenomegaly present and no masses PALPATION: Yes Soft to palpation and Yes No hepatosplenomegaly present Neuro: COMMON NORMALS: patient oriented x3 SENSORIUM/ORIENTATION: Yes alert Course 2 Vital Signs: Vital signs: Vital Signs Pulse Rate 108 H 02/01/24 22:30 Respiratory Rate 31 H 02/01/24 22:30 Blood Pressure 135/84 02/01/24 22:30 Pulse Oximetry 98 02/01/24 22:30 Oxygen Delivery Me thod Room Air 02/01/24 21:30 MDM - General Adult Medical Decision Making Dr. Johnson was notified of the results and he came down and evaluated the patient. He feels the patients tachycardia hypertension and blood pressure are not related to preeclampsia. He wanted us to work her up from the viral standpoint. A influenza and COVID test was performed these were negative. Urinalysis did show still a significant urinary tract infection even though being on Macrobid. She was given 1 g of Ancef and she will follow-up with Dr. Johnson within the next week. Patient was also given 20 mg labetalol and this decreased her heart rate from 1 37-96 and blood pressure from 152/78 to 119/71 Medical Records I reviewed the patient's medical records. Lab Data I reviewed the patient's lab results. 02/01/24 18:42 02/01/24 18:42 Radiology Impressions Chest CTA 02/01/24 18:58 IMPRESSION: No acute findings. Laboratory Results WBC 21.61 10^3/uL (4.5-13.0) H 08/19/24 18:42 RBC 4.52 10^6/uL (3.85-5.65) 02/01/24 18:42 Hgb 12.60 g/dL (12.4-14.8) 02/01/24 18:42 Hct 40.3 % (36-47) 02/01/24 18:42 MCV 89.2 fl (85-98) 02/01/24 18:42 MCH 27.9 pg (27-33) 02/01/24 18:42 MCHC 31.3 g/dL (30-55) 02/01/24 18:42 RDW 13.1 % (12.1-15.1) 02/01/24 18:42 Plt Count 601 10^3/cmm (157-399) H 02/01/24 18:42 MPV 9.5 fL (7.4-10.4) 02/01/24 18:42 Neut % (Auto) 87.3 % 02/01/24 18:42 Lymph % (Auto) 5.7 % 02/01/24 18:42 [place] % (Auto) 4.6 % 02/01/24 18:42 Eos % (Auto) 0.4 % 02/01/24 18:42 Baso % (Auto) 0.4 % 02/01/24 18:42 Neut # (Auto) 18.87 10^3/uL (1.8-8.0) H 02/01/24 18:42 Lymph # (Auto) 1.2 10^3/uL (1.5-6.5) L 02/01/24 18:42 [place] # (Auto) 1.0 10^3/uL (0.2-0.9) H 02/01/24 18:42 Eos # (Auto) 0.1 10^3/uL (0.0-0.8) 02/01/24 18:42 Baso # (Auto) 0.1 10^3/uL (0.0-0.1) 02/01/24 18:42 Nucleated RBC % (auto) 0 % 02/01/24 18:42 Nucleated RBCs # 0.0 /100WBC 02/01/24 18:42 Sodium 136 mmol/L (136-145) 02/01/24 18:42 Potassium 4.6 mmol/L (3.5-5.1) 02/01/24 18:42 Chloride 103 mmol/L (98-107) 02/01/24 18:42 Carbon Dioxide 4 mmol/L (22-29) L* 02/01/24 18:42 Anion Gap 33.6 (5-19) H 02/01/24 18:42 BUN 13 mg/dL (6-20) 02/01/24 18:42 Creatinine 0.9 mg/dL (0.5-0.9) 02/01/24 18:42 GFR Calculation 79.8 mL/min (90-130) L 02/01/24 18:42 Glucose 81 mg/dL (65-115) 02/01/24 18:42 Calculated Osmolality 281 mOsm/kg (285-295) L 02/01/24 18:42 Lactic Acid 0.8 mmol/L (0.5-2.2) 02/01/24 18:42 Uric Acid 12.9 mg/dL (2.4-5.7) H 02/01/24 18:42 Calcium 9.0 mg/dL (8.5-10.5) 02/01/24 18:42 Total Bilirubin 0.2 mg/dL (0.15-1.2) 02/01/24 18:42 AST 17 U/L (0-32) 02/01/24 18:42 ALT 19 U/L (0-33) 02/01/24 18:42 Alkaline Phosphatase 242 U/L (35-105) H 02/01/24 18:42 Lactate Dehydrogenase 179 U/L (135-214) 02/01/24 18:42 Total Protein 7.7 g/dL (6.6-8.7) 02/01/24 18:42 Albumin 4.3 g/dL (3.5-5.2) 02/01/24 18:42 Globulin 3.4 g/dL (1.3-4.6) 02/01/24 18:42 Procalcitonin 0.05 ng/mL (0-0.5) 02/01/24 18:42 Urine Color Yellow (Yellow) 02/01/24 20:07 Urine Appearance Slightly cloudy (CLEAR) 02/01/24 20:07 Urine pH 5 (5-7) 02/01/24 20:07 Ur Specific [place] 1.025 (1.005-1.030) 02/01/24 20:07 Urine Protein 1+ (Negative) H 02/01/24 20:07 Urine Glucose (UA) Norm (Normal) 02/01/24 20:07 Urine Ketones 3+ (Negative) H 02/01/24 20:07 Urine Blood 3+ (Negative) H 02/01/24 20:07 Urine Nitrate Negative (Negative) 02/01/24 20:07 Urine Bilirubin Neg (Negative) 02/01/24 20:07 Urine Urobilinogen Norm mg/dL (Negative) 02/01/24 20:07 Ur Leukocyte Esterase 2+ (Negative) H 02/01/24 20:07 Urine RBC 0-4 /hpf (0-2) H 02/01/24 20:07 Urine WBC 80-100 /hpf (0-5) H 02/01/24 20:07 Ur Squamous Epith Cells 0-4 /hpf (0-5) H 02/01/24 20:07 Amorphous Sediment Not Reportable 02/01/24 20:07 Urine Bacteria 1+ /hpf (NONE) H 02/01/24 20:07 Hyaline Casts 0-4 /lpf H 02/01/24 20:07 Fine Granular Casts 0-4 /lpf H 02/01/24 20:07 Ur Random Microalbumin 11 ug/dL (0-20) 02/01/24 20:07 Urine Creatinine 41 mg/dL (28-217) 02/01/24 20:07 Microalb/Creat Ratio 268 mg/dL (0-20) H 02/01/24 20:07 Influenza Type A Ag Negative (Negative) 02/01/24 21:08 Influenza Type B Ag Negative (Negative) 02/01/24 21:08 SARS-CoV-2 Ag (Rapid) negative (Negative) 02/01/24 21:08 All radiology interpretation(s) finalized by discharge Discharge Plan Discharge Patient Disposition: Home Clinical Impression: Tachycardia Hypertension Qualifiers: Hypertension type: unspecified Qualified Code(s): I10 - Essential (primary) hypertension Urinary tract infection Qualifiers: Urinary tract infection type: acute cystitis Hematuria presence: with hematuria Qualified Code(s): N30.01 - Acute cystitis with hematuria Condition: Stable Prescriptions: New cephalexin 500 mg capsule 500 mg PO Q6H 7 Days Qty: 28 0RF Discontinued nitrofurantoin monohyd/m-cryst [Macrobid] 100 mg capsule 100 mg PO BID Qty: 14 0RF Rx Instructions: must administer with a meal/food No Action [id number] 1 mg Tablet 1 tab PO DAILY Procardia XL 60 mg tablet extended release 24hr 60 mg PO DAILY Qty: 30 1RF Discharge Orders: Discharge ED (Routine); Ordered 02/01/24 Ordered By: Truong Fregoso Referrals: Fritz Johnson MD [Primary Care Provider] - 1 week Patient Instructions: Hypertension, Tachycardia (ED), Urinary Tract Infection - Women Activity Restrictions/Additional Instructions: Please stop your antibiotic Macrobid as this does not appear to be controlling your urinary tract infection. Please start the cephalexin, a prescription was called to your pharmacy. Please continue to keep your blood pressure monitored and keep a blood pressure log. Please follow-up with Dr. Johnson within the next week for further evaluation and treatment. 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
[2024-02-01 19:06] LABS: Basophils # 0.1 10^3/uL (0.0-0.1); Basophils % 0.4 %; Eosinophils # 0.1 10^3/uL (0.0-0.8); Eosinophils % 0.4 %; Hematocrit 40.3 % (36-47); Lymphocytes # 1.2 10^3/uL (1.5-6.5); Lymphocytes % 5.7 %; Mean Corpuscular HGB Conc 31.3 g/dL (30-55); Mean Corpuscular Hemoglobin 27.9 pg (27-33); Mean Corpuscular Volume 89.2 fl (85-98); Mean Platelet Volume 9.5 fL (7.4-10.4); Monocytes % 4.6 %; Neutrophils # 18.87 10^3/uL (1.8-8.0); Neutrophils % 87.3 %; Nucleated Red Blood Cells % 0 %; Platelet Count 601 10^3/cmm (157-399); Red Blood Count 4.52 10^6/uL (3.85-5.65); Red Cell Distribution Width 13.1 % (12.1-15.1); White Blood Count 21.61 10^3/uL (4.5-13.0)
--- NOTE | 2024-02-01 19:07 | ECG_ITS ---
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 Measurements Intervals [place] Rate: 126 P: 48 NE: 149 QRS: 41 QRSD: 82 T: 17 QT: 312 QTc: 452 Interpretive Statements SINUS TACHYCARDIA ABNORMAL RHYTHM ECG Compared to ECG 10/22/2023 13:54:43 ST (T wave) deviation no longer present Electronically Signed On 02-02-2024 23:26:33 CDT by Gamaliel Ulrich M.D. [email or web address]
[2024-02-01 19:09] LABS: Alanine Aminotransferase 19 U/L (0-33); Albumin Level 4.3 g/dL (3.5-5.2); Alkaline Phosphatase 242 U/L (35-105); Anion Gap 33.6 (5-19); Aspartate Amino Transferase 17 U/L (0-32); Blood Urea Nitrogen 13 mg/dL (6-20); Chloride 103 mmol/L (98-107); Globulin 3.4 g/dL (1.3-4.6); Glomerular Filtration Rate 79.8 mL/min (90-130); Glucose 81 mg/dL (65-115); Lactate Dehydrogenase 179 U/L (135-214); Osmolality Calculated 281 mOsm/kg (285-295); Potassium 4.6 mmol/L (3.5-5.1); Sodium 136 mmol/L (136-145); Total Bilirubin 0.2 mg/dL (0.15-1.2); Total Protein 7.7 g/dL (6.6-8.7); Uric Acid 12.9 mg/dL (2.4-5.7)
[2024-02-01 19:13] LABS: Carbon Dioxide 4 mmol/L (22-29)
[2024-02-01] MEDS: sodium chloride 0.9% 1,000 ML 999 ML IV (19:36)
[2024-02-01 19:39] LABS: Lactic Sepsis W/Reflex 0.8 mmol/L (0.5-2.2)
[2024-02-01] MEDS: iohexol 350 mg/mL 500 mL Btl (per mL) IV (19:40)
[2024-02-01 19:46] LABS: Procalcitonin 0.05 ng/mL (0-0.5)
[2024-02-01 20:12] LABS: Charge for UA Resulting for Rev
[2024-02-01 20:30] LABS: Bilirubin Urine Neg (Negative); Blood Urine 3+ (Negative); Glucose Urine UA Norm (Normal); Ketones Urine 3+ (Negative); Leukocyte Esterase Urine 2+ (Negative); Nitrate Urine Negative (Negative); Protein Urine 1+ (Negative); Specific Gravity, Urine 1.025 (1.005-1.030); Urine Appearance Slightly Cloudy (CLEAR); Urine Color Yellow (Yellow); Urobilinogen Urine Norm (Negative); pH Urine 5 (5-7)
[2024-02-01 20:31] LABS: Bacteria Urine 1+ /hpf; Creatinine Urine, Random 41 mg/dL (28-217); Microalbumin Random Urine 11 ug/dL (0-20); RBC Urine 0-4 /hpf (0-2); Squamous Epithelial Cell Urine 0-4 /hpf (0-5); WBC Urine 80-100 /hpf (0-5)
[2024-02-01] MEDS: labetalol 5 mg/mL SDV 20mL 20 MG IVP (20:31)
[2024-02-01 20:32] LABS: Add Urine Culture? Yes; Fine Granular Casts Urine 0-4 /lpf; Hyaline Casts Urine 0-4 /lpf
[2024-02-01 20:33] LABS: Microalbum Creatinine Ratio Ur 268 mg/dL (0-20)
[2024-02-01] MEDS: ceFAZolin 1,000 mg SDV 1000 MG IVP (20:50)
[2024-02-01 21:32] LABS: SARS Covid-2 Antigen negative (Negative)
[2024-02-01 21:41] LABS: Influenza A by IFA Negative (Negative); Influenza B by IFA Negative (Negative)
== END 2024-02-01 22:45 | disposition home or self-care (01) ==
PROVIDERS: Emergency Provider Emergency Medicine; PCP Obstetrics & Gynecology
DX: R00.0 Tachycardia, unspecified (principal); I10 Essential (primary) hypertension; N30.01 Acute cystitis with hematuria; Z11.52 Encounter for screening for COVID-19
CPT/HCPCS: 36415; 71275; 80053; 81003; 81015; 82044; 83605; 83615; 84145; 84550; 85025; 87086; 87426; 87804; 93005; 96361; 96374; 96375; 99285; J0690; J3490; J7030; Q9967

== ENCOUNTER 2024-02-04 20:36 | Emergency (ER) | payer BC, MEDICAID, SELFPAY ==
[2024-02-04 20:45] VITALS: BP 125/80; PULSE 115; RESP 16; TEMP 36.9; O2SAT 97; BMI 34.8
--- NOTE | 2024-02-04 22:00 | ED_ITS ---
HPI - Female Genitourinary 2 General: Chief complaint: Vaginal Bleeding Stated complaint: post preg hemoraging Time Seen by Provider: 02/04/24 21:57 History of Present Illness: Patient presents to the ER with vaginal bleeding starting today. Patient says she had a vaginal delivery on 19 January and was doing good other than high blood pressure control today. And she started bleeding heavily vaginally. She said she is going through about 1-2 pads an hour. Patient denies any nausea vomiting diarrhea fevers chills etc. Related Data Home Medications Medication Instructions Recorded Confirmed [id number]-So-FA 1 mg 1 tab PO DAILY 11/23/23 01/27/24 tablet Unable to Assess 02/01/24 02/01/24 Previous Rx's Medication Instructions Recorded nifedipine 60 mg tablet,extended 60 mg PO DAILY #30 tabs 01/22/24 release 24 hr (Procardia XL) cephalexin 500 mg capsule 500 mg PO Q6H 7 days #28 caps 02/01/24 Allergies Allergy/AdvReac Type Severity Reaction Status Date / Time No Known Allergies Allergy Verified 02/04/24 14:42 Review of Systems 2 General: Reports: 10 or more systems reviewed and unremarkable except in HPI and below PFSH ED 2 PFSH: Medical History Vaginal delivery Encounter for induction of labor Hypertension History of ovarian cyst No pertinent family history Surgical History No pertinent past surgical history Family History Mother Diabetes Hypertension Father Hypertension Denies family history of Colon cancer Ovarian cancer Prostate cancer Heart disease Breast cancer Uterine cancer Thyroid disease Stroke Social History Smoking and tobacco/nicotine status: never used tobacco/nicotine Female Reproductive History: Spontaneous abortions: No Physical Exam 2 Const: COMMON NORMALS: no acute distress, average body habitus, patient oriented x3, no limitations, healthy appearing, alert and well nourished HENMT: COMMON NORMALS: normocephalic, atraumatic, hearing grossly normal bilaterally, external ears normal, Normal external nose present and moist oral mucous membranes HEAD & SCALP: normocephalic and atraumatic NOSE: Normal external nose present EXTERNAL EAR: Yes external ears normal Neck/C-Spine: COMMON NORMALS: no JVD Chest: COMMONS NORMALS: normal inspection of the chest and normal palpation of entire chest wall Resp: COMMON NORMALS: normal respiratory effort, No retractions, No use of accessory muscles and clear to auscultation bilaterally AUSCULTATION: clear to auscultation bilaterally Cardio: COMMON NORMALS: no JVD, regular rhythm, S1 normal heart sound present, S2 normal heart sound present, No gallops present (Cardio), No murmurs present (Cardio) and No rub (Cardio); negative for regular rate (Mildly tachycardic) RATE: abnormal rate (Mildly tachycardic) RHYTHM: regular rhythm HEART SOUNDS: S1 normal heart sound present and S2 normal heart sound present GI: COMMON NORMALS: Normal to inspection, nondistended, normoactive bowel sounds present, Soft to palpation, non-tender, No hepatosplenomegaly present and no masses PALPATION: Yes Soft to palpation and Yes No hepatosplenomegaly present Neuro: COMMON NORMALS: patient oriented x3 SENSORIUM/ORIENTATION: Yes alert Course 2 Vital Signs: Vital signs: Vital Signs Temperature 98.4 F 02/04/24 20:45 Pulse Rate 102 H 02/05/24 00:29 Respiratory Rate 14 02/05/24 00:29 Blood Pressure 113/72 02/05/24 00:29 Pulse Oximetry 99 02/05/24 00:29 Oxygen Delivery Me thod Room Air 02/04/24 20:45 MDM - Female Medical Decision Making Physical exam was performed lab work was obtained. Hemoglobin is 11.1, potassium was 3.1, patient was given 40 mEq potassium and 1 L normal saline heart rate dropped from 1 15-97. Patient was feeling good. Patient will be discharged home. Patient should follow-up with Dr. Johnson and call his office tomorrow Medical Records I reviewed the patient's medical records. Lab Data I reviewed the patient's lab results. 02/04/24 22:05 02/04/24 22:05 Laboratory Results WBC 9.12 10^3/uL (4.5-13.0) 02/04/24 22:05 RBC 3.93 10^6/uL (3.85-5.65) 02/04/24 22:05 Hgb 11.10 g/dL (12.4-14.8) L 02/04/24 22:05 Hct 32.1 % (36-47) L 02/04/24 22:05 MCV 81.7 fl (85-98) L 02/04/24 22:05 MCH 28.2 pg (27-33) 02/04/24 22:05 MCHC 34.6 g/dL (30-55) 02/04/24 22:05 RDW 13.2 % (12.1-15.1) 02/04/24 22:05 Plt Count 473 10^3/cmm (157-399) H 02/04/24 22:05 MPV 9.7 fL (7.4-10.4) 02/04/24 22:05 Neut % (Auto) 62.2 % 02/04/24 22:05 Lymph % (Auto) 23.6 % 02/04/24 22:05 [place] % (Auto) 7.9 % 02/04/24 22:05 Eos % (Auto) 4.8 % 02/04/24 22:05 Baso % (Auto) 1.0 % 02/04/24 22:05 Neut # (Auto) 5.67 10^3/uL (1.8-8.0) 02/04/24 22:05 Lymph # (Auto) 2.2 10^3/uL (1.5-6.5) 02/04/24 22:05 [place] # (Auto) 0.7 10^3/uL (0.2-0.9) 02/04/24 22:05 Eos # (Auto) 0.4 10^3/uL (0.0-0.8) 02/04/24 22:05 Baso # (Auto) 0.1 10^3/uL (0.0-0.1) 02/04/24 22:05 Nucleated RBC % (auto) 0 % 02/04/24:05 Nucleated RBCs # 0.0 /100WBC 02/04/24 22: PT 12.90 SECONDS (12.1-14.9) 02/04/24 22:05 INR 0.95 (0.8-1.2) 02/04/24 22:05 Sodium 143 mmol/L (136-145) 02/04/24 22:05 Potassium 3.1 mmol/L (3.5-5.1) L 02/04/24 22:05 Chloride 109 mmol/L (98-107) H 02/04/24 22:05 Carbon Dioxide 19 mmol/L (22-29) L 02/04/24 22:05 Anion Gap 18.1 (5-19) 02/04/24 22:05 BUN 16 mg/dL (6-20) 02/04/24 22:05 Creatinine 0.7 mg/dL (0.5-0.9) 02/04/24 22:05 GFR Calculation 106.7 mL/min (90-130) 02/04/24 22:05 Glucose 106 mg/dL (65-115) 02/04/24 22:05 Calculated Osmolality 298 mOsm/kg (285-295) H 02/04/24 22:05 Calcium 9.6 mg/dL (8.5-10.5) 02/04/24 22:05 Total Bilirubin 0.2 mg/dL (0.15-1.2) 02/04/24 22:05 AST 22 U/L (0-32) 02/04/24 22:05 ALT 25 U/L (0-33) 02/04/24 22:05 Alkaline Phosphatase 217 U/L (35-105) H 02/04/24 22:05 Total Protein 7.1 g/dL (6.6-8.7) 02/04/24 22:05 Albumin 3.8 g/dL (3.5-5.2) 02/04/24 22:05 Globulin 3.3 g/dL (1.3-4.6) 02/04/24 22:05 All radiology interpretation(s) finalized by discharge Discharge Plan Discharge Patient Disposition: Home Clinical Impression: Vaginal bleeding Condition: Stable Prescriptions: No Action Unable to Assess [id number]-[id number] 1 mg Tablet 1 tab PO DAILY Procardia XL 60 mg tablet extended release 24hr 60 mg PO DAILY Qty: 30 1RF cephalexin 500 mg capsule 500 mg PO Q6H 7 Days Qty: 28 0RF Discharge Orders: Discharge ED (Routine); Ordered 02/05/24 Ordered By: Truong Fregoso Referrals: Fritz Johnson MD [Primary Care Provider] - 1-3 days Patient Instructions: Bleeding (ED) Activity Restrictions/Additional Instructions: In the ER your hemoglobin was stable 11.1. Your potassium was low at 3.1. You are given oral potassium in the ER. Please call Dr. Johnson's office in the morning to arrange follow-up especially if your bleeding does not slow down or stop on its own. If the bleeding continues and you feel lightheaded dizzy, feel you are i about to pass out or your heart is racing please return to the ER for further workup. Coding Level of Care Code ED Housetrailer Servicer for Sonido Rivers
[2024-02-04 22:10] LABS: Basophils # 0.1 10^3/uL (0.0-0.1); Eosinophils # 0.4 10^3/uL (0.0-0.8); Eosinophils % 4.8 %; Hematocrit 32.1 % (36-47); Lymphocytes # 2.2 10^3/uL (1.5-6.5); Lymphocytes % 23.6 %; Mean Corpuscular HGB Conc 34.6 g/dL (30-55); Mean Corpuscular Hemoglobin 28.2 pg (27-33); Mean Corpuscular Volume 81.7 fl (85-98); Mean Platelet Volume 9.7 fL (7.4-10.4); Monocytes # 0.7 10^3/uL (0.2-0.9); Monocytes % 7.9 %; Neutrophils # 5.67 10^3/uL (1.8-8.0); Neutrophils % 62.2 %; Nucleated Red Blood Cells % 0 %; Platelet Count 473 10^3/cmm (157-399); Red Blood Count 3.93 10^6/uL (3.85-5.65); Red Cell Distribution Width 13.2 % (12.1-15.1); White Blood Count 9.12 10^3/uL (4.5-13.0)
[2024-02-04 22:17] VITALS: BP 122/71; PULSE 77; RESP 18; O2SAT 100
[2024-02-04] MEDS: sodium chloride 0.9% 1,000 ML 999 ML IV (22:17)
[2024-02-04 22:24] LABS: INR 0.95 (0.8-1.2)
[2024-02-04 22:29] LABS: Alanine Aminotransferase 25 U/L (0-33); Albumin Level 3.8 g/dL (3.5-5.2); Alkaline Phosphatase 217 U/L (35-105); Anion Gap 18.1 (5-19); Aspartate Amino Transferase 22 U/L (0-32); Blood Urea Nitrogen 16 mg/dL (6-20); Calcium 9.6 mg/dL (8.5-10.5); Carbon Dioxide 19 mmol/L (22-29); Chloride 109 mmol/L (98-107); Globulin 3.3 g/dL (1.3-4.6); Glomerular Filtration Rate 106.7 mL/min (90-130); Glucose 106 mg/dL (65-115); Osmolality Calculated 298 mOsm/kg (285-295); Potassium 3.1 mmol/L (3.5-5.1); Sodium 143 mmol/L (136-145); Total Bilirubin 0.2 mg/dL (0.15-1.2); Total Protein 7.1 g/dL (6.6-8.7)
[2024-02-04] MEDS: potassium chloride ER 20 mEq Tablet 40 MEQ PO (22:54)
[2024-02-04 23:24] VITALS: PULSE 97; RESP 16; O2SAT 100
[2024-02-04 23:30] VITALS: BP 113/65; PULSE 77; RESP 16; O2SAT 99
[2024-02-05 00:29] VITALS: BP 113/72; PULSE 102; RESP 14; O2SAT 99
== END 2024-02-05 00:31 | disposition home or self-care (01) ==
PROVIDERS: Emergency Provider Emergency Medicine; PCP Obstetrics & Gynecology
DX: N93.9 Abnormal uterine and vaginal bleeding, unspecified (principal); I10 Essential (primary) hypertension
CPT/HCPCS: 80053; 85025; 85610; 96360; 96361; 99284; J7030

== ENCOUNTER 2024-03-18 23:16 | Emergency (ER) | payer BC, MEDICAID, SELFPAY ==
[2024-03-18 23:27] VITALS: BP 161/88; PULSE 83; RESP 16; TEMP 36.7; O2SAT 98; BMI 29.0
[2024-03-19] VITALS (12 sets, daily range): BP systolic 136–164; BP diastolic 82–111; PULSE 52–100; RESP 16; O2SAT 95–100
--- NOTE | 2024-03-19 00:02 | W.ED.ABDPA2 ---
Documented by User: GHANSHYAM Durant 03/20/24 13:09 HPI - Abdominal Pain General: Chief Complaint: Abdominal Pain Stated Complaint: N/Vabd pain back/rib pain-gallbladder removal- Time Seen by Provider: 03/18/24 23:56 History of Present Illness: 18-year-old female comes in today with epigastric pain radiating to her back. Patient has known gallbladder disease and is scheduled to have her gallbladder removed on the . Patient appears in moderate pain. Patient reports some nausea. Patient denies any fever. Patient has been using Tylenol and ibuprofen to control pain. Patient is breast-feeding. Related Data Home Medications Medication Instructions Recorded Confirmed ztfgztky-[id number]-[id number]-[id number] 1 mg 1 tab PO DAILY 11/23/23 03/01/24 tablet Previous Rx's Medication Instructions Recorded nifedipine 60 mg tablet,extended 60 mg PO DAILY #30 tabs 01/22/24 release 24 hr (Procardia XL) Allergies Allergy/AdvReac Type Severity Reaction Status Date / Time No Known Allergies Allergy Verified 03/01/24 11:30 Review of Systems General: Reports: 10 or more systems reviewed and unremarkable except in HPI and below PFSH ED PFSH: Medical History Vaginal delivery Encounter for induction of labor Hypertension History of ovarian cyst No pertinent family history Surgical History No pertinent past surgical history Family History Mother Diabetes Hypertension Father Hypertension Denies family history of Colon cancer Ovarian cancer Prostate cancer Heart disease Breast cancer Uterine cancer Thyroid disease Stroke Social History Smoking and tobacco/nicotine status: never used tobacco/nicotine Female Reproductive History: Spontaneous abortions: No Physical Exam Const: COMMON NORMALS: alert HENMT: COMMON NORMALS: normocephalic HEAD & SCALP: normocephalic Neck/C-Spine: COMMON NORMALS: full ROM Resp: COMMON NORMALS: normal respiratory effort and clear to auscultation bilaterally AUSCULTATION: clear to auscultation bilaterally Cardio: COMMON NORMALS: regular rate RATE: regular rate GI: COMMON NORMALS: Soft to palpation and non-tender PALPATION: Yes Soft to palpation Back/Pelvis: COMMON NORMALS: thoracic and lumbar spine normal to inspection Extremity: COMMON NORMALS: full ROM Neuro: SENSORIUM/ORIENTATION: Yes alert Psych: COMMON NORMALS: cooperative Skin: COMMON NORMALS: turgor normal GENERAL SKIN EXAM: turgor normal Course Vital Signs: Vital signs: Vital Signs Temperature 98.1 F 03/18/24 23:27 Pulse Rate 78 03/19/24 11:32 Respiratory Rate 16 03/19/24 07:00 Blood Pressure 154/108 03/19/24 11:32 Pulse Oximetry 95 03/19/24 11:32 Oxygen Delivery Me thod Room Air 03/19/24 07:00 MDM - Abdominal Pain Medical Decision Making 18-year-old female comes in today for complaints of epigastric pain radiating to the back. Patient appears in moderate pain. Patient does have known gallbladder disease. Respirations are even. Lungs are clear to auscultation. Abdomen soft with normal active bowel sounds. Vital signs are normal except for some elevated blood pressure. Differential diagnosis includes not limited to gallbladder colic, cholelithiasis, choledocholithiasis, pancreatitis. Lab Data 03/19/24 00:22 03/19/24 00:22 Labs/Radiology: Radiology Impressions Gallbladder Ultrasound 03/19/24 01:21 IMPRESSION: 1. Pulsatile portal venous waveform with elevated velocity suggestive of possible underlying portal hypertension. 2. Common bile duct is dilated up to 1.1 cm, no filling defect is noted to suggest choledocholithiasis, however not excluded. MRI can be obtained for further assessment. 3. Multiple small gallstones are noted within the bladder, no evidence of cholecystitis. Laboratory Results WBC 10.13 10^3/uL (4.5-13.0) 03/19/24 00:22 RBC 4.62 10^6/uL (3.85-5.65) 03/19/24 00:22 Hgb 11.70 g/dL (12.4-14.8) L 03/19/24 00:22 Hct 38.6 % (36-47) 03/19/24 00:22 MCV 83.5 fl (85-98) L 03/19/24 00:22 MCH 25.3 pg (27-33) L 03/19/24 00:22 MCHC 30.3 g/dL (30-55) 03/19/24 00: RDW 12.7 % (12.1-15.1) 03/19/24 00:22 Plt Count 383 10^3/cmm (157-399) 03/19/24 00:22 MPV 11.5 fL (7.4-10.4) H 03/19/24 00: Neut % (Auto) 76.1 % 03/19/24 00: Lymph % (Auto) 13.4 % 03/19/24 00:22 Garrard % (Auto) 8.1 % 03/19/24 00:22 Eos % (Auto) 1.5 % 03/19/24: Baso % (Auto) 0.7 % 03/19/24: Neut # (Auto) 7.71 10^3/uL (1.8-8.0) 03/19/24 00: Lymph # (Auto) 1.4 10^3/uL (1.5-6.5) L 03/19/24 00:22 Garrard # (Auto) 0.8 10^3/uL (0.2-0.9) 03/19/24 00:22 Eos # (Auto) 0.2 10^3/uL (0.0-0.8) 03/19/24 00:22 Baso # (Auto) 0.1 10^3/uL (0.0-0.1) 03/19/24 00:22 Nucleated RBC % (auto) 0 % 03/19/24 00: Nucleated RBCs # 0.0 /100WBC 03/19/24 00:22 Sodium 143 mmol/L (136-145) 03/19/24 00:22 Potassium 3.4 mmol/L (3.5-5.1) L 03/19/24 00:22 Chloride 103 mmol/L (98-107) 03/19/24 00:22 Carbon Dioxide 25 mmol/L (22-29) 03/19/24 00:22 Anion Gap 18.4 (5-19) 03/19/24 00:22 BUN 10 mg/dL (6-20) 03/19/24 00:22 Creatinine 0.7 mg/dL (0.5-0.9) 10/05/24 00:22 GFR Calculation 106.7 mL/min (90-130) 03/19/24: Glucose 103 mg/dL (65-115) 03/19/24: Calculated Osmolality 295 mOsm/kg (285-295) 03/19/24: Calcium 9.2 mg/dL (8.5-10.5) 03/19/24: Total Bilirubin 1.4 mg/dL (0.15-1.2) H 03/19/24: AST 452 U/L (0-32) H 03/19/24: ALT 221 U/L (0-33) H 03/19/24: Alkaline Phosphatase 428 U/L (35-105) H 03/19/24: Total Protein 7.6 g/dL (6.6-8.7) 03/19/24: Albumin 4.6 g/dL (3.5-5.2) 03/19/24: Globulin 3.0 g/dL (1.3-4.6) 03/19/24: Lipase 58 U/L (13-60) 03/19/24 00: HCG, Qual Negative (Negative) 03/19/24: Urine Color Dark yellow (Yellow) A 03/19/24 00: Urine Appearance Clear (CLEAR) 03/19/24 00:08 Urine pH 5.5 (5-7) 03/19/24 00:08 Ur Specific [place] 1.041 (1.005-1.030) H 03/19/24 00:08 Urine Protein 2+ (Negative) A 03/19/24 00:08 Urine Glucose (UA) Negative (Normal) 03/19/24 00:08 Urine Ketones Negative (Negative) 03/19/24 00:08 Urine Blood 1+ (Negative) A 03/19/24 00:08 Urine Nitrate Positive (Negative) A 03/19/24 00:08 Urine Bilirubin 2+ (Negative) H 03/19/24 00:08 Urine Urobilinogen 1.0 mg/dL (Negative) 03/19/24 00:08 Ur Leukocyte Esterase Trace (Negative) A 03/19/24 00:08 Urine RBC 0-2 /hpf (0-2) 03/19/24 00:08 Urine WBC 0-5 /hpf (0-5) 03/19/24 00:08 Ur Squamous Epith Cells 6-10 /hpf (0-5) 03/19/24 00:08 Amorphous Sediment Not Reportable 03/19/24 00:08 Urine Bacteria None seen /hpf (NONE) 03/19/24 00:08 Hyaline Casts 3.30 /lpf 03/19/24 00:08 Discharge Plan Discharge Patient Disposition: Xfer Short-Term Hosp Clinical Impression: Biliary colic, Acquired dilation of common bile duct, Acquired hyperbilirubinemia Condition: Fair Patient Instructions: Abdominal Pain (ED) Coding Level of Care Code ED Improvement Analyst for Chg Fwd Documented by User: Joel Johnson DO 03/19/24 20:46 HPI - Abdominal Pain General: Chief Complaint: Abdominal Pain Stated Complaint: N/Vabd pain back/rib pain-gallbladder removal-15th Time Seen by Provider: 03/18/24 23:56 Related Data Home Medications Medication Instructions Recorded Confirmed ghtlbvon-[id number]-[id number]-FA 1 mg 1 tab PO DAILY 11/23/23 03/01/24 tablet Previous Rx's Medication Instructions Recorded nifedipine 60 mg tablet,extended 60 mg PO DAILY #30 tabs 01/22/24 release 24 hr (Procardia XL) Allergies Allergy/AdvReac Type Severity Reaction Status Date / Time No Known Allergies Allergy Verified 03/01/24 11:30 [facility] ED PFSH: Medical History Vaginal delivery Encounter for induction of labor Hypertension History of ovarian cyst No pertinent family history Surgical History No pertinent past surgical history Family History Mother Diabetes Hypertension Father Hypertension Denies family history of Colon cancer Ovarian cancer Prostate cancer Heart disease Breast cancer Uterine cancer Thyroid disease Stroke Social History Smoking and tobacco/nicotine status: never used tobacco/nicotine Course Vital Signs: Vital signs: Vital Signs Temperature 98.1 F 03/18/24 23:27 Pulse Rate 78 03/19/24 11:32 Respiratory Rate 16 03/19/24 07:00 Blood Pressure 154/108 03/19/24 11:32 Pulse Oximetry 95 03/19/24 11:32 Oxygen Delivery Me thod Room Air 03/19/24 07:00 MDM - Abdominal Pain Medical Decision Making 18-year-old female comes in today for complaints of epigastric pain radiating to the back. Patient appears in moderate pain. Patient does have known gallbladder disease. Respirations are even. Lungs are clear to auscultation. Abdomen soft with normal active bowel sounds. Vital signs are normal except for some elevated blood pressure. Differential diagnosis includes not limited to gallbladder colic, cholelithiasis, choledocholithiasis, pancreatitis. This patient was originally seen by GHANSHYAM Ortiz.? I agree with his history, evaluation, and treatment. She was checked out to me at shift change. The story is complicated by a previous stay at [facility], during which an MRCP was completed, showing no biliary obstruction. She did have multiple gallstones. She did not evidently have cholecystitis. She was allowed home, with gallbladder schedule be taken out on 03/29. She continues to have symptoms. She presents to us, a third facility, regarding her continued right upper quadrant pain. There is no leukocytosis. Her lipase is 58. Creatinine is 0.7. Total bilirubin is 1.4. The last one we have on record is 0.2. The patient however states that her bilirubin and other liver enzymes were quite high when she was hospitalized at the outside facility. We do not know these numbers. On ultrasound, she does not appear to have wall thickening. She does have a common bile duct dilatation of 1.1cm. Since previous parameters were unknown to compare, I spoke with [facility] in [place] and got parameters from her prior stay. On 03/14, her bilirubin was 0.6. Her AST and ALT were normal. Her alk phos was 200. On MRCP, her bile duct was 6 mm. With nearly doubling in caliber of her bile duct, doubling her bilirubin, and significant increases in her liver enzymes, recurrent obstruction is high on the differential. We do not have gastroenterology at this facility, cannot not perform MRCP on the weekend, or ERCP at all. She would likely need gastroenterology services. [facility], since they saw her previously, are looking for a bed. Lab Data 03/19/24 00:22 10 00:22 Labs/Radiology: Radiology Impressions Gallbladder Ultrasound 03/19/24 01:21 IMPRESSION: 1. Pulsatile portal venous waveform with elevated velocity suggestive of possible underlying portal hypertension. 2. Common bile duct is dilated up to 1.1 cm, no filling defect is noted to suggest choledocholithiasis, however not excluded. MRI can be obtained for further assessment. 3. Multiple small gallstones are noted within the bladder, no evidence of cholecystitis. Laboratory Results WBC 10.13 10^3/uL (4.5-13.0) 03/19/24 00:22 RBC 4.62 10^6/uL (3.85-5.65) 03/19/24 00:22 Hgb 11.70 g/dL (12.4-14.8) L 03/19/24 00:22 Hct 38.6 % (36-47) 03/19/24 00: MCV 83.5 fl (85-98) L 03/19/24:22 MCH 25.3 pg (27-33) L 03/19/24 00:22 MCHC 30.3 g/dL (30-55) 03/19/24 00: RDW 12.7 % (12.1-15.1) 03/19/24 00: Plt Count 383 10^3/cmm (157-399) 03/19/24 00:22 MPV 11.5 fL (7.4-10.4) H 03/19/24 00: Neut % (Auto) 76.1 % 03/19/24:22 Lymph % (Auto) 13.4 % 03/19/24 00:22 Garrard % (Auto) 8.1 % 03/19/24 00: Eos % (Auto) 1.5 % 03/19/24 00:22 Baso % (Auto) 0.7 % 03/19/24 00:22 Neut # (Auto) 7.71 10^3/uL (1.8-8.0) 03/19/24 00:22 Lymph # (Auto) 1.4 10^3/uL (1.5-6.5) L 03/19/24 00:22 Garrard # (Auto) 0.8 10^3/uL (0.2-0.9) 03/19/24 00:22 Eos # (Auto) 0.2 10^3/uL (0.0-0.8) 03/19/24 00:22 Baso # (Auto) 0.1 10^3/uL (0.0-0.1) 03/19/24 00:22 Nucleated RBC % (auto) 0 % 03/19/24 00: Nucleated RBCs # 0.0 /100WBC 03/19/24 00:22 Sodium 143 mmol/L (136-145) 03/19/24 00:22 Potassium 3.4 mmol/L (3.5-5.1) L 03/19/24 00:22 Chloride 103 mmol/L (98-107) 03/19/24 00: Carbon Dioxide 25 mmol/L (22-29) 03/19/24 00:22 Anion Gap 18.4 (5-19) 03/19/24 00:22 BUN 10 mg/dL (6-20) 03/19/24 00:22 Creatinine 0.7 mg/dL (0.5-0.9) 03/19/24 00:22 GFR Calculation 106.7 mL/min (90-130) 03/19/24 00:22 Glucose 103 mg/dL (65-115) 03/19/24 00:22 Calculated Osmolality 295 mOsm/kg (285-295) 03/19/24 00:22 Calcium 9.2 mg/dL (8.5-10.5) 03/19/24 00:22 Total Bilirubin 1.4 mg/dL (0.15-1.2) H 03/19/24 00:22 AST 452 U/L (0-32) H 03/19/24 00:22 ALT 221 U/L (0-33) H 03/19/24 00:22 Alkaline Phosphatase 428 U/L (35-105) H 03/19/24 00:22 Total Protein 7.6 g/dL (6.6-8.7) 03/19/24 00:22 Albumin 4.6 g/dL (3.5-5.2) 03/19/24 00:22 Globulin 3.0 g/dL (1.3-4.6) 03/19/24 00:22 Lipase 58 U/L (13-60) 03/19/24 00:22 HCG, Qual Negative (Negative) 03/19/24 00:22 Urine Color Dark yellow (Yellow) A 03/19/24 00:08 Urine Appearance Clear (CLEAR) 03/19/24 00:08 Urine pH 5.5 (5-7) 03/19/24 00:08 Ur Specific [place] 1.041 (1.005-1.030) H 03/19/24 00:08 Urine Protein 2+ (Negative) A 03/19/24 00:08 Urine Glucose (UA) Negative (Normal) 03/19/24 00:08 Urine Ketones Negative (Negative) 03/19/24 00:08 Urine Blood 1+ (Negative) A 03/19/24 00:08 Urine Nitrate Positive (Negative) A 03/19/24 00:08 Urine Bilirubin 2+ (Negative) H 03/19/24 00:08 Urine Urobilinogen 1.0 mg/dL (Negative) 03/19/24 00:08 Ur Leukocyte Esterase Trace (Negative) A 03/19/24 00:08 Urine RBC 0-2 /hpf (0-2) 03/19/24 00:08 Urine WBC 0-5 /hpf (0-5) 03/19/24 00:08 Ur Squamous Epith Cells 6-10 /hpf (0-5) 03/19/24 00:08 Amorphous Sediment Not Reportable 03/19/24 00:08 Urine Bacteria None seen /hpf (NONE) 03/19/24 00:08 Hyaline Casts 3.30 /lpf 03/19/24 00:08 Discharge Plan Discharge Patient Disposition: Xfer Short-Term Hosp Clinical Impression: Biliary colic, Acquired dilation of common bile duct, Acquired hyperbilirubinemia Condition: Fair Patient Instructions: Abdominal Pain (ED) Coding Level of Care Code ED Improvement Analyst for Chg Fwd Documented by User: Tyrese Nugent DO 03/19/24 12:45 HPI - Abdominal Pain General: Chief Complaint: Abdominal Pain Stated Complaint: N/Vabd pain back/rib pain-gallbladder removal-15th Time Seen by Provider: 03/18/24 23:56 Related Data Home Medications Medication Instructions Recorded Confirmed hytjxoqh-vgn-Ac-FA 1 mg 1 tab PO DAILY 11/23/23 03/01/24 tablet Previous Rx's Medication Instructions Recorded nifedipine 60 mg tablet,extended 60 mg PO DAILY #30 tabs 01/22/24 release 24 hr (Procardia XL) Allergies Allergy/AdvReac Type Severity Reaction Status Date / Time No Known Allergies Allergy Verified 03/01/24 11:30 [facility] ED PFSH: Medical History Vaginal delivery Encounter for induction of labor Hypertension History of ovarian cyst No pertinent family history Surgical History No pertinent past surgical history Family History Mother Diabetes Hypertension Father Hypertension Denies family history of Colon cancer Ovarian cancer Prostate cancer Heart disease Breast cancer Uterine cancer Thyroid disease Stroke Social History Smoking and tobacco/nicotine status: never used tobacco/nicotine Course Vital Signs: Vital signs: Vital Signs Temperature 98.1 F 03/18/24 23:27 Pulse Rate 78 03/19/24 11:32 Respiratory Rate 16 03/19/24 07:00 Blood Pressure 154/108 03/19/24 11:32 Pulse Oximetry 95 03/19/24 11:32 Oxygen Delivery Me thod Room Air 03/19/24 07:00 MDM - Abdominal Pain Medical Decision Making 18-year-old female comes in today for complaints of epigastric pain radiating to the back. Patient appears in moderate pain. Patient does have known gallbladder disease. Respirations are even. Lungs are clear to auscultation. Abdomen soft with normal active bowel sounds. Vital signs are normal except for some elevated blood pressure. Differential diagnosis includes not limited to gallbladder colic, cholelithiasis, choledocholithiasis, pancreatitis. This patient was originally seen by GHANSHYAM Ortiz.? I agree with his history, evaluation, and treatment. She was checked out to me at shift change. The story is complicated by a previous stay at [facility], during which an MRCP was completed, showing no biliary obstruction. She did have multiple gallstones. She did not evidently have cholecystitis. She was allowed home, with gallbladder schedule be taken out on 03/29. She continues to have symptoms. She presents to us, a third facility, regarding her continued right upper quadrant pain. There is no leukocytosis. Her lipase is 58. Creatinine is 0.7. Total bilirubin is 1.4. The last one we have on record is 0.2. The patient however states that her bilirubin and other liver enzymes were quite high when she was hospitalized at the outside facility. We do not know these numbers. On ultrasound, she does not appear to have wall thickening. She does have a common bile duct dilatation of 1.1cm. Since previous parameters were unknown to compare, I spoke with [facility] in [place] and got parameters from her prior stay. On 03/14, her bilirubin was 0.6. Her AST and ALT were normal. Her alk phos was 200. On MRCP, her bile duct was 6 mm. With nearly doubling in caliber of her bile duct, doubling her bilirubin, and significant increases in her liver enzymes, recurrent obstruction is high on the differential. We do not have gastroenterology at this facility, cannot not perform MRCP on the weekend, or ERCP at all. She would likely need gastroenterology services. [facility], since they saw her previously, are looking for a bed. Care assumed at change of shift from Dr. Johnson. They have accepted the patient at [place]. Hospitalist will except transported in stable condition by [facility] ambulance Lab Data 03/19/24 00:22 03/19/24 00:22 Labs/Radiology: Radiology Impressions Gallbladder Ultrasound 03/19/24 01:21 IMPRESSION: 1. Pulsatile portal venous waveform with elevated velocity suggestive of possible underlying portal hypertension. 2. Common bile duct is dilated up to 1.1 cm, no filling defect is noted to suggest choledocholithiasis, however not excluded. MRI can be obtained for further assessment. 3. Multiple small gallstones are noted within the bladder, no evidence of cholecystitis. Laboratory Results WBC 10.13 10^3/uL (4.5-13.0) 03/19/24 00:22 RBC 4.62 10^6/uL (3.85-5.65) 03/19/24 00:22 Hgb 11.70 g/dL (12.4-14.8) L 03/19/24 00: Hct 38.6 % (36-47) 03/19/24: MCV 83.5 fl (85-98) L 03/19/24: MCH 25.3 pg (27-33) L 03/19/24: MCHC 30.3 g/dL (30-55) 03/19/24: RDW 12.7 % (12.1-15.1) 03/19/24 00: Plt Count 383 10^3/cmm (157-399) 03/19/24: MPV 11.5 fL (7.4-10.4) H 03/19/24 00: Neut % (Auto) 76.1 % 03/19/24 00: Lymph % (Auto) 13.4 % 03/19/24 00: Garrard % (Auto) 8.1 % 03/19/24: Eos % (Auto) 1.5 % 03/19/24: Baso % (Auto) 0.7 % 03/19/24: Neut # (Auto) 7.71 10^3/uL (1.8-8.0) 03/19/24 00: Lymph # (Auto) 1.4 10^3/uL (1.5-6.5) L 03/19/24 00:22 Garrard # (Auto) 0.8 10^3/uL (0.2-0.9) 03/19/24: Eos # (Auto) 0.2 10^3/uL (0.0-0.8) 03/19/24 00: Baso # (Auto) 0.1 10^3/uL (0.0-0.1) 03/19/24 00:22 Nucleated RBC % (auto) 0 % 03/19/24 00: Nucleated RBCs # 0.0 /100WBC 03/19/24 00:22 Sodium 143 mmol/L (136-145) 03/19/24:22 Potassium 3.4 mmol/L (3.5-5.1) L 03/19/24: Chloride 103 mmol/L (98-107) 03/19/24 00: Carbon Dioxide 25 mmol/L (22-29) 03/19/24 00: Anion Gap 18.4 (5-19) 03/19/24:22 BUN 10 mg/dL (6-20) 03/19/24:22 Creatinine 0.7 mg/dL (0.5-0.9) 03/19/24: GFR Calculation 106.7 mL/min (90-130) 03/19/24: Glucose 103 mg/dL (65-115) 03/19/24 00: Calculated Osmolality 295 mOsm/kg (285-295) 03/19/24 00: Calcium 9.2 mg/dL (8.5-10.5) 03/19/24 00:22 Total Bilirubin 1.4 mg/dL (0.15-1.2) H 03/19/24 00:22 AST 452 U/L (0-32) H 03/19/24:22 ALT 221 U/L (0-33) H 03/19/24 00:22 Alkaline Phosphatase 428 U/L (35-105) H 03/19/24 00:22 Total Protein 7.6 g/dL (6.6-8.7) 03/19/24 00: Albumin 4.6 g/dL (3.5-5.2) 03/19/24 00:22 Globulin 3.0 g/dL (1.3-4.6) 03/19/24 00: Lipase 58 U/L (13-60) 03/19/24 00:22 HCG, Qual Negative (Negative) 03/19/24 00:22 Urine Color Dark yellow (Yellow) A 03/19/24 00:08 Urine Appearance Clear (CLEAR) 03/19/24 00:08 Urine pH 5.5 (5-7) 03/19/24 00:08 Ur Specific [place] 1.041 (1.005-1.030) H 03/19/24 00:08 Urine Protein 2+ (Negative) A 03/19/24 00:08 Urine Glucose (UA) Negative (Normal) 03/19/24 00:08 Urine Ketones Negative (Negative) 03/19/24 00:08 Urine Blood 1+ (Negative) A 03/19/24 00:08 Urine Nitrate Positive (Negative) A 03/19/24 00:08 Urine Bilirubin 2+ (Negative) H 03/19/24 00:08 Urine Urobilinogen 1.0 mg/dL (Negative) 03/19/24 00:08 Ur Leukocyte Esterase Trace (Negative) A 03/19/24 00:08 Urine RBC 0-2 /hpf (0-2) 03/19/24 00:08 Urine WBC 0-5 /hpf (0-5) 03/19/24 00:08 Ur Squamous Epith Cells 6-10 /hpf (0-5) 03/19/24 00:08 Amorphous Sediment Not Reportable 03/19/24 00:08 Urine Bacteria None seen /hpf (NONE) 03/19/24 00:08 Hyaline Casts 3.30 /lpf 03/19/24 00:08 All radiology interpretation(s) finalized by discharge Discharge Plan Discharge Patient Disposition: Xfer Short-Term Hosp Clinical Impression: Biliary colic, Acquired dilation of common bile duct, Acquired hyperbilirubinemia Condition: Fair Patient Instructions: Abdominal Pain (ED) Coding Level of Care Code ED Improvement Analyst for Sonido Rivers
[2024-03-19 00:18] LABS: Bilirubin Urine 2+ (Negative); Blood Urine 1+ (Negative); Glucose Urine UA Negative (Normal); Ketones Urine Negative (Negative); Leukocyte Esterase Urine Trace (Negative); Nitrate Urine Positive (Negative); Protein Urine 2+ (Negative); Urine Appearance Clear (CLEAR); Urine Color Dark Yellow (Yellow); pH Urine 5.5 (5-7)
[2024-03-19 00:23] LABS: Add Urine Microscopic? YES; Bacteria Urine None Seen /hpf; RBC Urine 0-2 /hpf (0-2); WBC Urine 0-5 /hpf (0-5)
[2024-03-19 00:24] LABS: Specific Gravity, Urine 1.041 (1.005-1.030)
[2024-03-19] MEDS: sodium chloride 0.9% 1,000 ML 999 ML IV (00:24)
[2024-03-19] MEDS: fentaNYL 50 mcg/mL INJ 2mL 80 MCG IVP (00:24)
[2024-03-19] MEDS: ondansetron 2 mg/ML SDV 2 mL 4 MG IVP ×2 (00:24→05:26)
[2024-03-19 00:37] LABS: Basophils # 0.1 10^3/uL (0.0-0.1); Basophils % 0.7 %; Eosinophils # 0.2 10^3/uL (0.0-0.8); Eosinophils % 1.5 %; Hematocrit 38.6 % (36-47); Lymphocytes # 1.4 10^3/uL (1.5-6.5); Lymphocytes % 13.4 %; Mean Corpuscular HGB Conc 30.3 g/dL (30-55); Mean Corpuscular Hemoglobin 25.3 pg (27-33); Mean Corpuscular Volume 83.5 fl (85-98); Mean Platelet Volume 11.5 fL (7.4-10.4); Monocytes # 0.8 10^3/uL (0.2-0.9); Monocytes % 8.1 %; Neutrophils # 7.71 10^3/uL (1.8-8.0); Neutrophils % 76.1 %; Nucleated Red Blood Cells % 0 %; Platelet Count 383 10^3/cmm (157-399); Red Blood Count 4.62 10^6/uL (3.85-5.65); Red Cell Distribution Width 12.7 % (12.1-15.1); White Blood Count 10.13 10^3/uL (4.5-13.0)
[2024-03-19 00:46] LABS: HCG, Serum Qual Negative (Negative)
[2024-03-19 00:51] LABS: Alanine Aminotransferase 221 U/L (0-33); Albumin Level 4.6 g/dL (3.5-5.2); Alkaline Phosphatase 428 U/L (35-105); Anion Gap 18.4 (5-19); Aspartate Amino Transferase 452 U/L (0-32); Blood Urea Nitrogen 10 mg/dL (6-20); Calcium 9.2 mg/dL (8.5-10.5); Carbon Dioxide 25 mmol/L (22-29); Chloride 103 mmol/L (98-107); Creatinine Clr Calc Pharmacy 138.1023; Glomerular Filtration Rate 106.7 mL/min (90-130); Glucose 103 mg/dL (65-115); Lipase 58 U/L (13-60); Osmolality Calculated 295 mOsm/kg (285-295); Potassium 3.4 mmol/L (3.5-5.1); Sodium 143 mmol/L (136-145); Total Bilirubin 1.4 mg/dL (0.15-1.2); Total Protein 7.6 g/dL (6.6-8.7)
--- NOTE | 2024-03-19 01:21 | USR_ITS ---
PROCEDURE INFORMATION: Exam: US Abdomen, Limited; Right Upper Quadrant Exam date and time: 03/19/2024 2:43 AM Age: 18 years old Clinical indication: Abdominal pain; Acute; Additional info: Ruq pain, elevated lft TECHNIQUE: Imaging protocol: Real time ultrasound of the abdomen with image documentation. Limited exam focused on the right upper quadrant. COMPARISON: [place] appendix [id number] 12/17/2022 12:24 AM FINDINGS: Liver: Unremarkable. Gallbladder: Multiple small gallstones are noted within the gallbladder. Biliary ducts: Common bile duct is dilated up to 1.1 cm. Pancreas: Visualized pancreas is unremarkable. Right kidney: Normal. No mass. No hydronephrosis. Portal venous: Pulsatile portal vein waveform with elevated velocity. US/US gall bladder [id number] IMPRESSION: 1. Pulsatile portal venous waveform with elevated velocity suggestive of possible underlying portal hypertension. 2. Common bile duct is dilated up to 1.1 cm, no filling defect is noted to suggest choledocholithiasis, however not excluded. MRI can be obtained for further assessment. 3. Multiple small gallstones are noted within the bladder, no evidence of cholecystitis.
[2024-03-19] MEDS: morphine 4 mg/mL SDV 1 mL IVP (05:26)
[2024-03-19] MEDS: ketorolac 30 mg/mL INJ IVP (05:53)
[2024-03-19] MEDS: fentaNYL 50 mcg/mL INJ 2mL 75 MCG IVP (05:53)
--- NOTE | 2024-03-19 06:49 | PC.NURSE ---
Transferred care to Laly HORTON at this time.
[2024-03-19] MEDS: piperacillin-tazobactam 3.375 GM in sodium chloride 0.9% (plus) 50 ML IV (07:02)
== END 2024-03-19 11:33 | disposition short-term general hospital (02) ==
PROVIDERS: Nurse Practitioner Family; Emergency Provider Family Medicine
DX: K83.8 Other specified diseases of biliary tract (principal); K80.50 Calculus of bile duct without cholangitis or cholecystitis without obstruction; E80.6 Other disorders of bilirubin metabolism; I10 Essential (primary) hypertension
CPT/HCPCS: 76705; 80053; 81001; 83690; 84703; 85025; 96361; 96365; 96375; 96376; 99285; J1885; J2270; J2405; J2543; J3010; J7030

== ENCOUNTER 2025-03-31 10:22 | Outpatient (CLI) | payer BC, MEDICAID, SELFPAY ==
--- NOTE | 2025-03-31 11:06 | MRR_ITS ---
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 Exam focused on the liver. COMPARISON: CT abdomen pelvis wo con [id number] 11/02/2021 8:57 PM FINDINGS: Liver: 1.5 cm focus of mild edema in the lateral aspect of segment 8 of the liver. Gallbladder and biliary ducts: There has been a cholecystectomy. 3 mm filling defect in the midportion of the common duct, suspicious for choledocholithiasis. Common bile duct diameter is 6 mm. Pancreas: Normal. Kidneys: Normal kidneys. Intraperitoneal space: No free fluid. Lymph nodes: No enlarged nodes. Bones/joints: Unremarkable. No suspicious lesions. Other findings: Study is limited in the absence of IV contrast. MR/MR abdomen con [id number] IMPRESSION: 1. Study is limited in the absence of IV contrast. 2. 1.5 cm focus of mild edema in the lateral aspect of segment 8 of the liver. Consider evaluation with nonemergent outpatient MRI of the abdomen with IV contrast. 3. 3 mm filling defect in the midportion of the common duct, suspicious for choledocholithiasis. Recommend correlation with MRCP.
== END 2025-03-31 10:23 | disposition home or self-care (01) ==
LOC: RAD 10:22
PROVIDERS: PCP Nurse Practitioner Family; Visit Provider Nurse Practitioner Family
DX: D37.6 Neoplasm of uncertain behavior of liver, gallbladder and bile ducts (principal); Z90.49 Acquired absence of other specified parts of digestive tract; R93.2 Abnormal findings on diagnostic imaging of liver and biliary tract
CPT/HCPCS: 74181

== ENCOUNTER 2025-04-04 10:20 | Outpatient (CLI) | payer BC, MEDICAID, SELFPAY ==
--- NOTE | 2025-04-04 10:30 | MR_ITS ---
WS: [id number] MRI ABDOMEN WITH AND WITHOUT CONTRAST. COMPARISON: Prior MRI 03/31/2025. CT 07/15/2021, 02/01/2024 Multiplanar, multisequence imaging is performed with and without contrast. Sagittal and axial T1 fat sat sequences post-MultiHance 20 cc IV. History: Follow-up liver mass. Liver is mildly enlarged measuring 18.7 cm in length. Reidentified T2 hyperintense focus in the RIGHT lobe of the liver measuring 11 mm at segment 8. There is arterial enhancement. Not typical for hemangioma but on the portal venous phase there is filling in. This is probably a small hepatic hemangioma. No additional masses within the liver. Portal vein is normal. No intrahepatic duct dilatation. Prior cholecystectomy. Spleen is top normal size at 12.7 cm. No adrenal mass. Pancreas is normal. Normal kidneys. No ascites or adenopathy. Lung bases are clear. Stomach is normal. MR/MR abdomen wo/w con* [id number] IMPRESSION: 1. Arterially enhancing mass measuring 11 mm segment 8. No increase in size si nce 03/31/2025. This is most consistent with a small hemangioma. There is compl ete filling in of this mass on the portal phase. 2. No additional hepatic masses. 3. Mild hepatomegaly. 4. Prior cholecystectomy.
== END 2025-04-04 10:21 | disposition home or self-care (01) ==
LOC: RAD 10:23
PROVIDERS: PCP Nurse Practitioner Family; Visit Provider Nurse Practitioner Family
DX: D37.6 Neoplasm of uncertain behavior of liver, gallbladder and bile ducts (principal); R74.8 Abnormal levels of other serum enzymes; R16.0 Hepatomegaly, not elsewhere classified
CPT/HCPCS: 74183

== ENCOUNTER 2025-04-20 15:42 | Emergency (ER) | payer SELFPAY ==
--- NOTE | 2025-04-20 15:46 | XRR_ITS ---
PROCEDURE INFORMATION: Exam: XR Chest Exam date and time: 04/20/2025 4:10 PM Age: 19 years old Clinical indication: Pain; Angina pectoris; Additional info: Chest pain TECHNIQUE: Imaging protocol: Radiologic exam of the chest. Views: 1 view. COMPARISON: CT angio chest PE protcl [id number] 02/01/2024 7:34 PM FINDINGS: Lungs: Unremarkable. No consolidation. Pleural spaces: Unremarkable. No pleural effusion. No pneumothorax. Heart/Mediastinum: Unremarkable. No cardiomegaly. Bones/joints: Within normal limits. Soft tissues: Upper abdominal surgical clips may reflect prior cholecystectomy. XR/XR chest 1V portable [id number] IMPRESSION: No acute cardiopulmonary findings.
--- OUTSIDE RECORDS SUMMARY | 2025-04-20 15:47 | XMS_ITS | Clinical Summary ---
Author Organization [facility] Terrance curry [place] Address [address] [place] [address] Phone Care Team Providers Care Palliative Care Physician Name Role Phone Unavailable Primary Care Provider Unavailabl e Allergies No known active allergies Medications ibuprofen (MOTRIN) 400 mg tablet Take 500 mg by mouth every 6 hours as needed for Pain, Mild. Active polyethylene glycol (MIRALAX) 17 gram Powder in Packet Take 1 Packet (17 Grams) by mouth 1 time daily as needed for Constipation. 02/29/2024 Active ondansetron (ZOFRAN ODT) 4 mg Tablet, Rapid Dissolve Take 1 Tablet (4 mg) by mouth every 6 hours as needed for Nausea/Emesis . Dissolve tablet on top of tongue, then swallow with saliva. 20 Tablet 1 03/19/2024 Active Active Problems Problem Noted Date Diagnosed Date Essential hypertension 02/28/2024 Acute gallstone pancreatitis 02/27/2024 Choledocholithiasis 02/27/2024 Transaminitis 02/27/2024 Cholelithiases 02/27/2024 Elevated liver enzymes 02/27/2024 Encounters Date Type Department Care Team Description 02/28/2025 External Device Data [facility]STRACTION Provider, Abstract 02/21/2025 External Device Data [facility] Provider, Abstract 02/21/2025 External Device Data [facility] Provider, Abstract 02/14/2025 External Device Data [facility] Provider, Abstract 01/31/2025 External Device Data [facility] Provider, Abstract from Last 3 Months Family History Medical History Relation Name Comments Diabetes Mother Hypertension Mother Relation Name Status Comments Mother Social History Tobacco Use Types Packs/Day Years Used Date Smoking Tobacco: Never Smokeless Tobacco: Never Tobacco Cessation:Counseling Given: Not Answered Alcohol Use Standard Drinks/Week Comments Never 0 (1 standard drink = 0.6 oz pur e alcohol) Adolescent Education Answer Date Record ed Getting School Help Needed Not on file 01/22 Feeling Safe Answer Date Recorded Are you in a relationship wi th someone who hurts you emotionally and/or physically? No 02/27/2024 Food Insecurity Answer Date Recorded Patient needs follow up regardin 10/22/2024 Transportation Needs Answer Date Record ed Patient needs follow up regardin 10/22/2024 Housing Stability Answer Date Recorded Social/Environmental Concerns No concerns Utility Needs Answer Date Recorded Patient needs follow up regardin 10/22/2024 Comments No Sex and Gender Information Value Date Recorded Sex Assigned at Not on file Legal Sex Female 11:12 AM CDT Gender Identity Not on file Sexual Orientation Not on file Last Filed Vital Signs Vital Sign Reading Time Taken Comments Blood Pressure 132/82 03/14/2024 1:56 PM CDT Pulse 88 03/14/2024 1:56 PM CDT Temperature 36.1 C (96.9 F) 03/14/2024 1:56 PM CDT Respiratory Rate 18 02/29/2024 11:00 AM CDT Oxygen Saturation 98% 03/14/2024 1:56 PM CDT Inhaled Oxygen Concentration - - Weight 96.6 kg (213 lb) 03/14/2024 1:56 PM CDT Height 166.4 cm (5' 5.5 ) 03/14/2024 1:56 PM CDT Body Mass Index 34.91 03/14/2024 1:56 PM CDT Plan of Treatment Health Maintenance Due Date Last Done Comments CHLAMYDIA SCREENING (ANNUAL) 11-24 YEARS 2014 HPV VACCINES (1 - 3-dose series) 2018 DTAP/TDAP/TD VACCINES (1 - Tdap) 2022 HEPATITIS B VACCINES (1 of 3 - 19+ 3-dose series) 04/16 CERVICAL CANCER SCREENING 2024 HPV/Cotest (21-29) 2024 PAP SMEAR 2024 INFLUENZA VACCINE (#1) 2025 Insurance [facility]LY [facility] MEDICAID Advance Directives For more information, please contact: [phone] * Full Code (Latest Code Status on File) Date Activated Date Inactivated Comments 02/27/2024 10:49 AM 02/29/2024 8:56 PM
--- NOTE | 2025-04-20 15:48 | ECG_ITS ---
[facility] Date: 2025-04-20 Pat Name: Dominga Díaz Department: Room: Gender: Female Rejoiner: : 2005 Requested By: Flower Phelps Order Number: [id number] Bell MD: Gamaliel Ulrich M.D. Measurements Intervals [place] Rate: 72 P: 49 OR: 161 QRS: 85 QRSD: 86 T: 52 QT: 358 QTc: 394 Interpretive Statements SINUS RHYTHM Compared to ECG 02/01/2024 19:07:11 Sinus tachycardia no longer present Electronically Signed On 04-22-2025 13:00:54 [employer] by Gamaliel Ulrich M.D. [email or web address]
--- OUTSIDE RECORDS SUMMARY | 2025-04-20 15:48 | XMS_ITS | Data Portability ---
Author Organization [place] [facility] [place], ADMIN Address [address] [place] [address] Assessment Encounter Date Assessment Date Assessment LastModified by Organization Details LastModified Time 04/01/2024 04/01/2024 I have reconcile d the patient's medications post their discharge from inpatient facility. 18 year old female presents to the clinic for follow up after hospitalization after ERCP with CBD stent placement. She had a cholecystectomy on 03/22/24 and ERCP was performed 03/20/24. She denies any GI complaints today. She has seen general surgery in follow up. Impression: 1. Gallstone pancreatitis 2. Obstructive jaundice 3. Post ERCP with stent placement 03/20/24 4. S/p cholecystectomy 03/22/24 fro cholelithiasis Recommendations: 1. CBC, CMP, amylase, lipase today 2. Follow up in 4 weeks to schedule CBD stent removal [email or web address] Not available 04/01/2024 17:37:17 04/01/2024 04/01/2024 Patient is statu s post laparoscopic cholecystectomy on 03/22/2024 Patient initially had choledocholithiasis that she got ERCP with sphincterotomy and CBD stenting prior to the surgery. Pathology result of the surgery came back as cholelithiasis with chronic cholecystitis. Discussed the pathology results with the patient and gave her a printout. Currently patient is 10 days postop, feeling well, denies nausea vomiting, tolerating regular diet. She is about 2 months and she was educated that she cannot lift more than 8 pounds for the next 6 weeks although her child is 13 pounds so she was educated that she can only hold the baby while in seated or laying down positions but not to lift the baby from sitting down or laying positions to standing or walk around while carrying the baby. Time spent for the care of the patient is 25 minutes. [email or web address] Not available 04/01/2024 17:15:55 04/29/2024 04/29/2024 18 year old mirta brasher presents to the clinic for follow via telehealth up after hospitalization after ERCP with CBD stent placement. She denies any GI complaints today. She had a cholecystectomy on 03/22/24 and ERCP was performed 03/20/24. She denies any GI complaints today. She has seen general surgery in follow up. LOC was 5 minutes Lab studies 04/01/2024: WBC 8.1, hemoglobin 10.7, hematocrit 32.4, platelet count 432, amylase 72, lipase 51, GFR 129, sodium 145, potassium 3.7, albumin 3.9, AST 16, ALT 33, total bili 0.4 alkaline phosphatase 222 Impression: 1. History of Gallstone pancreatitis 2. History of Obstructive jaundice 3. Post ERCP with stent placement 03/20/24 4. S/p cholecystectomy 03/22/24 fro cholelithiasis 5. S/p vaginal 3 months ago, patient is 6. Mild elevation of alk phos persists, possibly partially due to post- status Recommendations: 1. Schedule ERCP with stent removal 2. Pt requests breast-feeding compatible post-operative abx treatment 3. Follow up 2 weeks post ERCP 4. CMP a.m. of procedure [email or web address] Not available 04/29/2024 14:50:14 Plan of Treatment Reminders Order Date Submit Date Provider Last Modified By Organization Details Last Modified Time Details Appointments None recorded. Lab CMP, serum or plasma - Please draw day of procedure (May 03) 2023 [facility] (Lab)_do Not Use, [address] [place], [address], 12:40:02 CMP, serum or plasma 2023 024 [facility] (Lab)_do Not Use, [address] [facility], [place], [address], 18:24:08 CBC w/ auto diff 2023 024 [facility] (Lab)_do Not Use, [address], [place], [address], 16:35:50 amylase + lipase, serum 2023 024 [facility] (Lab)_do Not Use, [address], [place], [address], 10:23:47 Referral None recorded. Procedures endoscopic retrograde cholangiopa ncreatograp hy (PROC) - IV Lock, Initiate Possible Sphincterot vijaya, with possible stent placement/s tent removal, with possible spyglass cholangiosc opy, possible balloon dilation. CPT: 94718, 86315, 41921, 55590, 06335, 81879, 98808, 09790, 23041 2023 [facility], [address], [place], [address], 16:52:36 Surgeries None recorded. Imaging None recorded. Medication Orders None recorded. Patient TargetsNo targets recorded. Patient Instructions Encounter Date Encounter Id Patient Instructions Last Modified By Organization Details Last Modified Time 04/01/2024 [id number] Please review your medication list of your Summary of Care from this visit and if any differences from what you are currently taking at home please call us to discuss. Not available 04/01/2024 15:30:44 Homebound Status : Required Home Health Services : . Durable Medical Equipment needed : Not available 04/01/2024 15:30:44 04/01/2024 [id number] learning about healthy weight [email or web address] Not available 04/01/2024 17:15:56 body mass index: care instructions [email or web address] Not available 04/01/2024 17:15:56 eating healthy foods: care instructions [email or web address] Not available 04/01/2024 17:15:56 wound check: car e instructions [email or web address] Not available 04/01/2024 17:15:56 acute pain after surgery: care instructions [email or web address] Not available 04/01/2024 17:15:56 Follow-up as needed. As discussed, avoid lifting, pushing, pulling anything more than 8 pounds for 6 weeks postop. Avoid constipation, take [id number] stool softeners as needed. Recommend adequate protein intake, i.e. a 1 gram of protein per kilogram of your weight. Keep the incision site(s) clean, and if worsening redness, swelling, presence of discharge please call the clinic or come to the ER. [email or web address] Not available 04/01/2024 17:13:27 Reason for Referral None Reported. Results Created Date Observation Date Name Description Value Unit Range Abnormal Flag Note LastModifiedBy Organization Detail LastModifiedTime 04/01/2004/01/2024 COMPL ETE BLOOD COUNT W/AUT O DIFFE RENTI AL WBC 8.1 K/uL 4.6-10 .9 Not Available [facility] (Lab)_do Not Use [address], [place], [address], 04/01/2024 16:35:50 04/01/20 24 04/01/2024 COMPL ETE BLOOD COUNT W/AUT O DIFFE RENTI AL RBC cnt 4.12 3.90-5 .19 Not Available [facility] (Lab)_do Not Use [address], [place], [address], 04/01/2024 16:35:50 04/01/20 24 04/01/2024 COMPL ETE BLOOD COUNT W/AUT O DIFFE RENTI AL HGB 10.7 g/dL 11.8-1 5.6 low Not Available [facility] (Lab)_do Not Use [address], [place], [address], 04/01/2024 16:35:50 04/01/20 24 04/01/2024 COMPL ETE BLOOD COUNT W/AUT O DIFFE RENTI AL HCT 32.4 % 38.1-4 6.9 low Not Available [facility] (Lab)_do Not Use [address], [place], [address], 04/01/2024 16:35:50 04/01/20 24 04/01/2024 COMPL ETE BLOOD COUNT W/AUT O DIFFE RENTI AL MCV 78.8 fL 81.1-9 7.9 low Not Available [facility] (Lab)_do Not Use [address], [place], [address], 04/01/2024 16:35:50 04/01/20 24 04/01/2024 COMPL ETE BLOOD COUNT W/AUT O DIFFE RENTI AL MCH 25.9 pg 27.1-3 2.9 low Not Available [facility] (Lab)_do Not Use [address], [place], [address], 04/01/2024 16:35:50 04/01/20 24 04/01/2024 COMPL ETE BLOOD COUNT W/AUT O DIFFE RENTI AL MCHC 32.9 32.1-3 5.9 Not Available [facility] (Lab)_do Not Use [address], [place], [address], 04/01/2024 16:35:50 04/01/20 24 04/01/2024 COMPL ETE BLOOD COUNT W/AUT O DIFFE RENTI AL RDW 14.7 % 11.6-1 4.4 high Not Available [facility] (Lab)_do Not Use [address], [place], [address], 04/01/2024 16:35:50 04/01/20 24 04/01/2024 COMPL ETE BLOOD COUNT W/AUT O DIFFE RENTI AL plt cnt 432 K/uL 151-44 9 Not Available [facility] (Lab)_do Not Use [address], [place], [address], 04/01/2024 16:35:50 04/01/20 24 04/01/2024 COMPL ETE BLOOD COUNT W/AUT O DIFFE RENTI AL MPV 9.2 fL 7.5-10 .3 Not Available [facility] (Lab)_do Not Use [address], [place], [address], 04/01/2024 16:35:50 04/01/20 24 04/01/2024 COMPL ETE BLOOD COUNT W/AUT O DIFFE RENTI AL NRBC% auto 0 % no reference range Not Available [facility] (Lab)_do Not Use [address], [place], [address], 04/01/2024 16:35:50 04/01/20 24 04/01/2024 COMPL ETE BLOOD COUNT W/AUT O DIFFE RENTI AL NRBC# auto 0 /100_ WBC no reference range Not Available [facility] (Lab)_do Not Use [address], [place], [address], 04/01/2024 16:35:50 04/01/20 24 04/01/2024 .AUTO DIFF neutrophils% auto 64.7 % 38.0-6 9.0 Not Available [facility] (Lab)_do Not Use [address], [place], [address], 04/01/2024 17:01:38 04/01/20 24 04/01/2024 .AUTO DIFF lymphocytes% auto 24.5 % 22.0-5 0.0 Not Available [facility] (Lab)_do Not Use [address], [place], [address], 04/01/2024 17:01:38 04/01/20 24 04/01/2024 .AUTO DIFF monocytes% auto 7.8 % 3.0-8. 0 Not Available [facility] (Lab)_do Not Use [address], [place], [address], 04/01/2024 17:01:38 04/01/20 24 04/01/2024 .AUTO DIFF eosinophils% auto 2.0 % 1.0-2. 0 Not Available [facility] (Lab)_do Not Use [address], [place], [address], 04/01/2024 17:01:38 04/01/20 24 04/01/2024 .AUTO DIFF basophils% auto 1.0 % 1.0-4. 0 Not Available [facility] (Lab)_do Not Use [address], [place], [address], 04/01/2024 17:01:38 04/01/2004/01/2024 .AUTO DIFF neutrophils# auto 5.2 3.0-7. 0 Not Available [facility] (Lab)_do Not Use [address], [place], [address], 04/01/2024 17:01:38 04/01/20 24 04/01/2024 .AUTO DIFF lymphocytes# auto 2.0 2.0-4. 0 Not Available [facility] (Lab)_do Not Use [address], [place], [address], 04/01/2024 17:01:38 04/01/20 24 04/01/2024 .AUTO DIFF monocytes# auto 0.6 1.0-1. 0 low Not Available [facility] (Lab)_do Not Use [address], [place], [address], 04/01/2024 17:01:38 04/01/20 24 04/01/2024 .AUTO DIFF eos# auto 0.2 2.0-2. 0 low Not Available [facility] (Lab)_do Not Use [address], [place], [address], 04/01/2024 17:01:38 04/01/20 24 04/01/2024 .AUTO DIFF basophils# auto 0.1 1.0-1. 0 low Not Available [facility] (Lab)_do Not Use [address], [place], [address], 04/01/2024 17:01:38 04/01/20 24 04/01/2024 AMYLA SE LEVEL amylase 72 U/L 26-114 Not Available [facility] (Lab)_do Not Use [address], [place], [address], 04/01/2024 17:12:14 04/01/2004/01/2024 LIPAS E LEVEL lipase 51 U/L 17-76 Not Available [facility] (Lab)_do Not Use [address], [place], [address], 04/01/2024 17:12:16 04/01/2004/01/2024 COMPR EHENS SAUL METAB OLIC PROFI LE eGFR 129 mL/mi n/1.7 3_m2 >=90 CKD is defin ed by the prese nce of breanna guthrietr ation rate (GFR) <60 mL for >3 month s and/o r evide nce of kidne y damag e (eg, struc tural abnor malit ies, histo logic abnor malit ies, album inuri a, urina ry sedim ent abnor malit ies, renal tubul ar disor ders, and/o r histo ry of kidne y trans plant ation ) for >3mon ths. This table provi viet inter preta tion of speci fic eGFR value s. Creat inine measu remen ts, and there fore eGFR calcu latio ns, are affec paul by very high or very low muscl e mass, muscl e injur y, a diet very high in meat, hepat ic cirrh osis, certa in drugs , etc. Stage s of CKD: Stage Descr iptio n GFR mL/mi n 1 Kidne y damag e with ameena l or incre ased GFR 90 2 Kidne y damag e with mild decre ase in GFR 60 to 89 3 Moder ate decre ase in GFR 30 to 59 4 Sever e decre ase in GFR 15 to 29 5 Kidne y failu re <15 (or dialy sis) Note: GFR Ameena l range >60, equat ion not valid ated for ages <18 and >70 and pregn ant women . Not Available [facility] (Lab)_do Not Use [address], [place], [address], 04/01/2024 18:24:06 04/01/2004/01/2024 COMPR EHENS SAUL METAB OLIC PROFI LE glucose 86 mg/dL 71-[address] [facility] (Lab)_do Not Use [address], [place], [address], 04/01/2024 18:24:06 04/01/2004/01/2024 COMPR EHENS SAUL METAB OLIC PROFI LE BUN 10 mg/dL 8-[address] [facility] (Lab)_do Not Use [address], [place], [address], 04/01/2024 18:24:06 04/01/2004/01/2024 COMPR EHENS SAUL METAB OLIC PROFI LE creatinine 0.7 mg/dL 0.6-1. 3 Not Available [facility] (Lab)_do Not Use [address], [place], [address], 04/01/2024 18:24:06 04/01/2004/01/2024 COMPR EHENS SAUL METAB OLIC PROFI LE BUN/crea ratio 14.29 6.01-1 9.99 Not Available [facility] (Lab)_do Not Use [address], [place], [address], 04/01/2024 18:24:06 04/01/2004/01/2024 COMPR EHENS SAUL METAB OLIC PROFI LE sodium 145 mmol/ L 136-14 9 Not Available [facility] (Lab)_do Not Use [address], [place], [address], 04/01/2024 18:24:06 04/01/20 24 04/01/2024 COMPR EHENS SAUL METAB OLIC PROFI LE potassium 3.7 mEq/L 3.6-5. 2 Not Available [facility] (Lab)_do Not Use [address], [place], [address], 04/01/2024 18:24:06 04/01/2004/01/2024 COMPR EHENS SAUL METAB OLIC PROFI LE chloride 106 mmol/ L 96-109 Not Available [facility] (Lab)_do Not Use [address], [place], [address], 04/01/2024 18:24:06 04/01/2004/01/2024 COMPR EHENS SAUL METAB OLIC PROFI LE carbon dioxide 26 mmol/ L 22-33 Not Available [facility] (Lab)_do Not Use [address], [place], [address], 04/01/2024 18:24:06 04/01/2004/01/2024 COMPR EHENS SAUL METAB OLIC PROFI LE calcium 8.9 mg/dL 8.6-10 .0 Not Available [facility] (Lab)_do Not Use [address], [place], [address], 04/01/2024 18:24:06 04/01/2004/01/2024 COMPR EHENS SAUL METAB OLIC PROFI LE Ca corrected 9.0 mg/dL 8.6-10 .0 Not Available [facility] (Lab)_do Not Use [address], [place], [address], 04/01/2024 18:24:06 04/01/2004/01/2024 COMPR EHENS SAUL METAB OLIC PROFI LE prot total 7.7 g/dL 6.5-8. 2 Not Available [facility] (Lab)_do Not Use [address], [place], [address], 04/01/2024 18:24:06 04/01/2004/01/2024 COMPR EHENS SAUL METAB OLIC PROFI LE albumin 3.9 g/dL 3.6-4. 9 Not Available [facility] (Lab)_do Not Use [address], [place], [address], 04/01/2024 18:24:06 04/01/2004/01/2024 COMPR EHENS SAUL METAB OLIC PROFI LE globulin 4 no reference range Not Available [facility] (Lab)_do Not Use [address], [place], [address], 04/01/2024 18:24:06 04/01/2004/01/2024 COMPR EHENS SAUL METAB OLIC PROFI LE albumin/glob ulin ratio 1.03 1.01-2 .49 Not Available [facility] (Lab)_do Not Use [address], [place], [address], 04/01/2024 18:24:06 04/01/2004/01/2024 COMPR EHENS SAUL METAB OLIC PROFI LE anion gap 13.0 mmol/ L 3.1-10 .9 high Not Available [facility] (Lab)_do Not Use [address], [place], [address], 04/01/2024 18:24:06 04/01/2004/01/2024 COMPR EHENS SAUL METAB OLIC PROFI LE alkaline phosphatase 222 U/L 51-135 high Not Available [facility] (Lab)_do Not Use [address], [place], [address], 04/01/2024 18:24:06 04/01/20 24 04/01/2024 COMPR EHENS SAUL METAB OLIC PROFI LE AST 16 U/L 16-[address] [facility] (Lab)_do Not Use [address], [place], [address], 04/01/2024 18:24:06 04/01/20 24 04/01/2024 COMPR EHENS SAUL METAB OLIC PROFI LE ALT 33 U/L 31-[address] [facility] (Lab)_do Not Use [address], [place], [address], 04/01/2024 18:24:06 04/01/20 24 04/01/2024 COMPR EHENS SAUL METAB OLIC PROFI LE bili total 0.4 mg/dL 0.1-0. 9 Not Available [facility] (Lab)_do Not Use [address], [place], [address], 04/01/2024 18:24:06 04/01/20 24 04/01/2024 COMPR EHENS SAUL METAB OLIC PROFI LE osmol calc 287 mOsm/ kg 276-29 4 Not Available [facility] (Lab)_do Not Use [address], [place], [address], 04/01/2024 18:24:06 05/03/20 24 05/03/2024 COMPR EHENS SAUL METAB OLIC PROFI LE eGFR 127 mL/mi n/1.7 3_m2 >=90 CKD is defin ed by the prese nce of breanna cardona ation rate (GFR) <60 mL for >3 month s and/o r evide nce of fátima (eg, struc tural abnor malit ies, histo logic abnor malit ies, album inuri a, urina ry sedim ent abnor malit ies, renal tubul ar disor ders, and/o r histo ry of kidne y trans plant ation ) for >3mon ths. This table provi viet inter preta tion of speci fic eGFR value s. Creat inine measu remen ts, and there fore eGFR calcu latio ns, are affec paul by very high or very low muscl e mass, muscl e injur y, a diet very high in meat, hepat ic cirrh osis, certa in drugs , etc. Stage s of CKD: Stage Descr iptio n GFR mL/mi n 1 Kidne y damag e with ameena l or incre ased GFR 90 2 Kidne y damag e with mild decre ase in GFR 60 to 89 3 Moder ate decre ase in GFR 30 to 59 4 Sever e decre ase in GFR 15 to 29 5 Kidne y failu re <15 (or dialy sis) Note: GFR Ameena l range >60, equat ion not valid ated for ages <18 and >70 and pregn ant women . Not Available [facility] (Lab)_do Not Use [address], [place], [address], 05/03/2024 12:40:02 05/03/20 24 05/03/2024 COMPR EHENS SAUL METAB OLIC PROFI LE glucose 85 mg/dL 71-[address] [facility] (Lab)_do Not Use [address], [place], [address], 05/03/2024 12:40:02 05/03/20 24 05/03/2024 COMPR EHENS SAUL METAB OLIC PROFI LE BUN 15 mg/dL 8-[address] [facility] (Lab)_do Not Use [address], [place], [address], 05/03/2024 12:40:02 05/03/20 24 05/03/2024 COMPR EHENS SAUL METAB OLIC PROFI LE creatinine 0.7 mg/dL 0.6-1. 3 Not Available [facility] (Lab)_do Not Use [address], [place], [address], 05/03/2024 12:40:02 05/03/20 24 05/03/2024 COMPR EHENS SAUL METAB OLIC PROFI LE BUN/crea ratio 21.43 6.01-1 9.99 high Not Available [facility] (Lab)_do Not Use [address], [place], [address], 05/03/2024 12:40:02 05/03/20 24 05/03/2024 COMPR EHENS SAUL METAB OLIC PROFI LE sodium 141 mmol/ L 136-14 9 Not Available [facility] (Lab)_do Not Use [address], [place], [address], 05/03/2024 12:40:02 05/03/20 24 05/03/2024 COMPR EHENS SAUL METAB OLIC PROFI LE potassium 3.9 mEq/L 3.6-5. 2 Not Available [facility] (Lab)_do Not Use [address], [place], [address], 05/03/2024 12:40:02 05/03/20 24 05/03/2024 COMPR EHENS SAUL METAB OLIC PROFI LE chloride 104 mmol/ L 96-109 Not Available [facility] (Lab)_do Not Use [address], [place], [address], 05/03/2024 12:40:02 05/03/20 24 05/03/2024 COMPR EHENS SAUL METAB OLIC PROFI LE carbon dioxide 26 mmol/ L 22-33 Not Available [facility] (Lab)_do Not Use [address], [place], [address], 05/03/2024 12:40:02 05/03/20 24 05/03/2024 COMPR EHENS SAUL METAB OLIC PROFI LE calcium 9.3 mg/dL 8.6-10 .0 Not Available [facility] (Lab)_do Not Use [address], [place], [address], 05/03/2024 12:40:02 05/03/20 24 05/03/2024 COMPR EHENS SAUL METAB OLIC PROFI LE Ca corrected 9.1 mg/dL 8.6-10 .0 Not Available [facility] (Lab)_do Not Use [address], [place], [address], 05/03/2024 12:40:02 05/03/20 24 05/03/2024 COMPR EHENS SAUL METAB OLIC PROFI LE prot total 7.9 g/dL 6.5-8. 2 Not Available [facility] (Lab)_do Not Use [address], [place], [address], 05/03/2024 12:40:02 05/03/20 24 05/03/2024 COMPR EHENS SAUL METAB OLIC PROFI LE albumin 4.2 g/dL 3.6-4. 9 Not Available [facility] (Lab)_do Not Use [address], [place], [address], 05/03/2024 12:40:02 05/03/20 24 05/03/2024 COMPR EHENS SAUL METAB OLIC PROFI LE globulin 4 no reference range Not Available [facility] (Lab)_do Not Use [address], [place], [address], 05/03/2024 12:40:02 05/03/20 24 05/03/2024 COMPR EHENS SAUL METAB OLIC PROFI LE albumin/glob ulin ratio 1.14 1.01-2 .49 Not Available [facility] (Lab)_do Not Use [address], [place], [address], 05/03/2024 12:40:02 05/03/20 24 05/03/2024 COMPR EHENS SAUL METAB OLIC PROFI LE anion gap 11.0 mmol/ L 3.1-10 .9 high Not Available [facility] (Lab)_do Not Use [address], [place], [address], 05/03/2024 12:40:02 05/03/20 24 05/03/2024 COMPR EHENS SAUL METAB OLIC PROFI LE alkaline phosphatase 242 U/L 51-135 high Not Available [facility] (Lab)_do Not Use [address], [place], [address], 05/03/2024 12:40:02 05/03/20 24 05/03/2024 COMPR EHENS SAUL METAB OLIC PROFI LE AST 23 U/L 16-[address] [facility] (Lab)_do Not Use [address], [place], [address], 05/03/2024 12:40:02 05/03/20 24 05/03/2024 COMPR EHENS SAUL METAB OLIC PROFI LE ALT 51 U/L 31-[address] [facility] (Lab)_do Not Use [address], [place], [address], 05/03/2024 12:40:02 05/03/20 24 05/03/2024 COMPR EHENS SAUL METAB OLIC PROFI LE bili total 0.5 mg/dL 0.1-0. 9 Not Available [facility] (Lab)_do Not Use [address], [place], [address], 05/03/2024 12:40:02 05/03/20 24 05/03/2024 COMPR EHENS SAUL METAB OLIC PROFI LE osmol calc 281 mOsm/ kg 276-29 4 Not Available [facility] (Lab)_do Not Use [address], [place], [address], 05/03/2024 12:40:02 05/04/20 24 05/03/2024 rf ERCP bilia ry duct [facility] [place] [facility] [address] [place] [address]- Patien t: DOMINGA NOEL [id number] : 2004 Sex:Fe male Locati on: [facility]; 1070; 1 Orderi ng Physic raul: ULICES COVINGTON MD Diagno stic Radiol ogy Access ion Exam Date/T luis felipe [id number] 2023 14:17 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 Please see provid ers surgic al proced ure or operat saul note for exam interp retati ons & report s in [employer]ner . If report assist ance is needed please call [facility] Medica l Record s Depart ment at for result s. Final Signed by: Luda Nieto PACS Admini juaquin r Signed (Elect blanche Signat ure): 2023 06:44 am AGRISCIENCE TECHNOLOGY INSTRUCTOR Transc ribed DT/TM: 2023 06:44 am AGRISCIENCE TECHNOLOGY INSTRUCTOR Techni arelis Commen ts Fluoro scopy time (in minute s): 0 Fluoro scopy time (in second s): 14.6 tcowger [facility] (Radiology) [address], [place], [address], 05/19/2024 15:19:18 Result Notes None recorded. Problems Name Problem SNOMED Code Status Onset Date Resolution Date Notes Provider Name and Address Organization Details Recorded Time Obesity 167015562 Active 024 YANNICK FRANK MD [address] [facility], [place], [id number] , [facility] [place] [address] 04/01/2024 17:01:36 Problem Notes None recorded. Procedures Surgical History Date Name Laterality Status Provider Name and Address Organization Details Recorded Time 2023 endoscopic retrograde cholangiopancreatography completed Sandra Owens RN [address] 4 13:56:11 2023 Transitional_Care_Manageme nt completed Torres Guzman LPN [address] 4 15:30:45 2023 cholecystectomy completed Torres Guzman LPN [address] 4 15:33:42 2023 endoscopic retrograde cholangiopancreatography completed Torres Guzman LPN [address] 4 15:33:48 Imaging Results None recorded. Procedure Notes None recorded. Medical Equipment None Reported. Allergies No known drug allergies Medications Not known to be on any medication Vitals Date Recorded Body height Body mass index (BMI) Body mass index (BMI) [Percentile] Per age and sex Body weight Body temperature Heart rate Systolic And Diastolic Provider Name and Address Organization Details Last Updated DateTime 4 165.1 cm 34.2 kg/m2 96 % 44183.8 7 g 97.9 [degF] 85 /min 131/84 mm[Hg] Jordi Brown LPN [address] 4 14:43:20 Date Recorded Body height Body mass index (BMI) [Percentile] Per age and sex Body mass index (BMI) Body weight Respiratory rate Oxygen saturation Oxygen saturation in Arterial blood by Pulse oximetry Heart rate Pain severity - 0-10 verbal numeric rating [Score] - Reported Systolic And Diastolic Provider Name and Address Organization Details Last Updated DateTime 4 165.1 cm 96 % 33.8 kg/m2 36387.3 3 g 18 /min 98 % 98 % 74 /min 0 118/79 mm[Hg] Torres Guzman LPN [address] 4 15:36:21 Date Recorded Body height Body mass index (BMI) Body mass index (BMI) [Percentile] Per age and sex Body weight Pain severity - 0-10 verbal numeric rating [Score] - Reported Provider Name and Address Organization Details Last Updated DateTime 04/29/2024 165.1 cm 35.3 kg/m2 97 % 17682.5 8 g 0 Torres Guzman LPN [address] 14:31:50 Social History Question Answer Notes LastModified by Organizat ion Details LastModified Time Tobacco Smoking Status Never Smoker Jordi Brown LPN null, [address] 04/01/2024 14:44:08 What Is Your Level Of Caffeine Consumption? Moderate Information not available 04/01/2024 What Was The Date Of Your Most Recent Tobacco Screening? 04/29/2024 Information not available 04/29/2024 Has Tobacco Cessation Counseling Been Provided? No Information not available 04/01/2024 Sex: Unknown Functional Status Question Answer Note LastModified by Organizat ion Details LastModified Time Do you use any illicit or recreational drugs? No Information not available 04/01/2024 Do you or have you ever used any other forms of tobacco or nicotine? No Information not available 04/01/2024 What is your level of alcohol consumption? None Information not available 04/01/2024 Mental Status None recorded. Family History Nothing Reported. Medical History No medical history recorded. Gynecological HistoryNo gynecological history recorded. Obstetrics History GPAL:G 0 P 0 0 0 0 Past Encounters Encounter ID Performer Location Encounter Start Date Encounter Closed Date Diagnosis/Indication Diagnosis SNOMED-CT Code Diagnosis ICD10 Code Diagnosis IMO Codes Diagnosis Note [id number] YANNICK FRANK MD [facility] [address] [address] 04/01/2024 14:24:52 04/04/2024 11:38:22 Postoperative care 857353272 Z48.89 Obesity 208571439 E66.9 [id number] Ulices Coffman MD [facility] [address] [place] [address] [place] [address] 04/01/2024 15:14:02 04/01/2024 15:48:22 Common bile duct calculus 442035909 K80.50 [id number] Ulices Coffman MD [facility] [address] [place] [address] 04/29/2024 14:30:13 04/29/2024 14:42:45 Common bile duct calculus 201335257 K80.50 Health Concerns Section Related Observation LastModified by Organization Detai ls LastModified Time None Recorded Concern Status LastModified by Organization Details LastModified Time None Recorded Advance Directives Directive None Recorded Payers Insurance Date Sequence Insurance Name Policy Number Policy Bardales Covered Member ID Bardales Member ID Guarantor Name 01/06/2025 1 [employer] [place]AC[place] - [place]MO[place] [id number] Dominga Noel [id number] Dominga Noel 05/09/2024 2 [place] Dominga Noel [id number] Dominga Noel Notes Date Note Type Note Provider Name and Address Organization Details Recorded Time 04/01/2024 text/html Patient is a 18-year-old female status post Laparoscopic cholecystectomy on 03/22/2024. Patient is recovering well. Patient denies any fevers or chills. Patient denies any worsening swelling, redness or drainage from the incision site(s). She mentioned she felt gaseous and bloated at her upper abdomen especially in the first few days up to a week postsurgery I explained to her that this could be due to the gas insufflation from the laparoscopic procedure. YANNICK FRANK MD [address] [place] [address], [phone], [address] 04/01/2024 17:16:28 04/01/2024 text/html 18 year old female presents to the clinic for follow up after hospitalization after ERCP with CBD stent placement. She had a cholecystectomy on 03/22/24 and ERCP was performed 03/20/24. She denies any GI complaints today. She has seen general surgery in follow up. Impression:1. Gallstone pancreatitis2. Obstructive jaundice3. Post ERCP with stent placement . S/p cholecystectomy 03/22/24 fro cholelithiasis Recommendations:1. CBC, CMP, amylase, lipase today2. Follow up in 4 weeks to schedule CBD stent removal DEEPIKA BURTON NP [address] [place] [address], [phone], [address] 04/01/2024 17:37:29 04/29/2024 text/html 18 year old female presents to the clinic for follow via telehealth up after hospitalization after ERCP with CBD stent placement. She denies any GI complaints today. She had a cholecystectomy on 03/22/24 and ERCP was performed 03/20/24. She denies any GI complaints today. She has seen general surgery in follow up. LOC was 5 minutes Lab studies 04/01/2024: WBC 8.1, hemoglobin 10.7, hematocrit 32.4, platelet count 432, amylase 72, lipase 51, GFR 129, sodium 145, potassium 3.7, albumin 3.9, AST 16, ALT 33, total bili 0.4 alkaline phosphatase 222 Impression:1. History of Gallstone pancreatitis2. History of Obstructive jaundice3. Post ERCP with stent placement . S/p cholecystectomy 03/22/24 fro cholelithiasis5. S/p vaginal 3 months ago, patient is breastfeeding6. Mild elevation of alk phos persists, possibly partially due to post- status Recommendations:1. Schedule ERCP with stent removal2. Pt requests breast-feeding compatible post-operative abx treatment3. Follow up 2 weeks post ERCP4. CMP a.m. of procedure DEEPIKA BURTON NP [address] [place], [address], [place] [facility] [place] 04/29/2024 14:50:25 OBGyn Episode No OBEpisode recorded.
--- OUTSIDE RECORDS SUMMARY | 2025-04-20 15:48 | XMS_ITS | Encounter Summary ---
Author Organization [facility] Address [address] [place] [address] Care Team Providers Care Efficiency Expert Name Role Phone Unavailable Primary Care Provider Unavailabl e Reason for Visit * Reason Onset Date Comments Other 03/17/2024 Encounter Details Date Type Department Care Team (Late st Contact Info) Description 03/17/2024 Telephone [facility] [place] [address] [place] [address] Iraj Velasco DO [address] [place] [address] Other Social History Tobacco Use Types Packs/Day Years Used Date Smoking Tobacco: Never Smokeless Tobacco: Never Alcohol Use Standard Drinks/Week Comments Never 0 [...] on file Sexual Orientation Not on file documented as of this encounter Miscellaneous Notes * Telephone Encounter - Kalpana Carlson - 03/17/2024 9:28 AM CDT Velasco Pt called to ask about moving her surgery up if someone cancels. She said her surgery is on 03/29. I could not see it. Told pt a car porter would call if they can get her in sooner. documented in this encounter Plan of Treatment Not on file documented as of this encounter Visit Diagnoses Not on filedocumented in this encounter
[2025-04-20 15:49] VITALS: BP 153/81; PULSE 79; RESP 17; TEMP 36.7; O2SAT 97; BMI 37.1
--- NOTE | 2025-04-20 17:51 | ED_ITS ---
HPI - Chest Pain General: Chief Complaint: Chest Pain Stated Complaint: chest pain Time Seen by Provider: 04/20/25 17:38 Source: patient Mode of arrival: ambulatory Limitations: no limitations History of Present Illness: Patient is a nice 19-year-old female on nifedipine for hypertension here following an episode of chest pain. She states she was lying in bed with her daughter who was lying on her left shoulder when she began developing substernal chest pain that radiated into the left side of her chest and into her left shoulder and posterior neck. Patient states she sit up quickly and lost vision for 3 to 5 seconds and felt dizzy like she was going to pass out. She states the entire episode only lasted for a few seconds before resolving. She states she has never had similar episodes. Upon arrival and at time of my examination with patient, she is asymptomatic. She is not complaining of headache or neck pain. Chest pain is fully resolved. She is not complaining of shortness of gardenia ath or difficulty breathing. MD complaint: chest pain Onset (ago): hour(s) Timing of current episode: now resolved Prior episodes: No Onset: during rest Pain location: substernal and left chest Pain radiation: left arm, neck and left shoulder Severity: moderate Quality: sharp Relieving factors: nothing Exacerbating factors: nothing Associated symptoms: Deny abdominal pain, dyspnea, fever(s), nausea, palpitations, syncope or vomiting Treatment prior to arrival: none Risk Factors: Coronary artery disease risk factors: hypertension Thoracic aortic dissection risk factors: none Related Data Home Medications ?Medication ?Instructions ?Recorded ?Confirmed [id number] 1 mg 1 tab PO DAILY 03/01/24 tablet Previous Rx's ?Medication ?Instructions ?Recorded nifedipine 60 mg tablet,extended 60 mg PO DAILY #30 ta bs 01/22/24 release 24 hr (Procardia XL) Allergies Allergy/AdvReac Type Severity Reaction Status Date / Time No Known Allergies Allergy Verified 03/01/24 11:30 Review of Systems Const: Denies: fever(s), chills, body aches, fatigue or malaise Eyes: Reports: change in vision (resolved); Denies: blurry vision Card: Reports: chest pain (resolved); Denies: palpitations, irregular heart rhythm, lightheadedness, syncope or dyspnea on exertion Resp: Denies: dyspnea, productive cough or pain on inspiration GI: Denies: abdominal pain, nausea, vomiting, heartburn or diarrhea : Denies: dysuria Musc: Reports: neck pain (resolved) and joint pain (L shoulder-resolved); Denies: back pain, extremity pain, extremity swelling, joint swelling, joint redness, joint warmth or joint stiffness Skin/Breast: Denies: rash Neuro: Reports: dizziness (resolved); Denies: headache(s), numbness in extremities, weakness in extremities, sensory changes or confusion PFSH ED PFSH: Medical History Vaginal delivery Encounter for induction of labor Hypertension History of ovarian cyst No pertinent family history Surgical History No pertinent past surgical history Family History Mother Diabetes Hypertension Father Hypertension Denies family history of Colon cancer Ovarian cancer Prostate cancer Heart disease Breast cancer Uterine cancer Thyroid disease Stroke Social History Smoking and tobacco/nicotine status: never used tobacco/nicotine Female Reproductive History: Spontaneous abortions: No Physical Exam Const: COMMON NORMALS: no acute distress, patient oriented x3, no limitations, alert and well nourished GENERAL APPEARANCE: cooperative ORIENTATION/CONSCIOUSNESS: Yes awake, Yes oriented to person, Yes oriented to place and Yes oriented to time HENMT: COMMON NORMALS: normocephalic and atraumatic HEAD & SCALP: normal to inspection, normocephalic and atraumatic FACE & SINUS: normal facial exam and face symmetric Eye: COMMON NORMALS: Equal, round and reactive pupils present, EOMs intact bilaterally and conjunctivae normal GENERAL EYE: appearance normal, both eyes and all related structures and normal light reflex VISUAL ACUITY: Yes acuity normal VISUAL CASTAÑEDA: No peripheral vision loss, No central vision loss, No left visual field cut, No right visual field cut, No bitemporal visual field cut, No binasal visual field cut and No visual field cut by quadrant ALIGNMENT: Yes alignment normal PERIORBITAL: periorbital findings normal CONJUNCTIVA: Yes conjunctivae normal SCLERA: sclerae normal CORNEA: Yes corneas normal PUPIL: Yes Equal, round and reactive pupils present DIRECT OPHTHALMOSCOPY: Yes normal light reflex Neck/C-Spine: COMMON NORMALS: full ROM, no lymphadenopathy, supple, no meningeal signs and no JVD GENERAL: Yes normal visual inspection Chest: COMMONS NORMALS: normal inspection of the chest and normal palpation of entire chest wall Resp: COMMON NORMALS: normal respiratory effort and clear to auscultation bilaterally AUSCULTATION: clear to auscultation bilaterally Cardio: COMMON NORMALS: no JVD, regular rate and regular rhythm RATE: regular rate RHYTHM: regular rhythm Extremity: COMMON NORMALS: normal to inspection, full ROM and capillary refill normal GENERAL: Yes normal exam except as noted Neuro: GYPSY COMA SCALE: document GCS findings Laverne coma scale eye opening: Spontaneous Gypsy coma scale verbal response: Orientated Laverne coma scale motor response: Obey commands Laverne coma scale total score: 15 COMMON NORMALS: patient oriented x3, CN's II-XII intact bilaterally, moves all extremities, no focal motor deficits, no sensory deficits noted and gait normal SENSORIUM/ORIENTATION: Yes alert, Yes oriented to person, Yes oriented to place and Yes oriented to time MENINGEAL SIGNS: Yes no meningeal signs Skin: COMMON NORMALS: no rashes or lesions noted GENERAL SKIN EXAM: no rashes or lesions noted Course Vital Signs: Vital signs: Vital Signs Temperature 98.0 F 04/20/25 15:49 Pulse Rate 78 04/20/25 18:11 Respiratory Rate 17 04/20/25 15:49 Blood Pressure 144/87 04/20/25 18:11 Pulse Oximetry 100 04/20/25 18:11 Oxygen Delivery Me thod Room Air 04/20/25 18:06 MDM - Chest Pain Medical Decision Making At this time differential would be very broad and I suspect benign. Given the fact that she is completely asymptomatic at time of my examination, I do not feel we need to pursue lengthy emergent workup at this time. She did have an EKG and CXR both of which were unremarkable. She was welcome to return to the emergency department for onset of further symptoms or any other concerns she may have. Medical Records I reviewed the patient's medical records. Lab Data Radiology Impressions Chest X-Ray 04/20/25 15:46 IMPRESSION: No acute cardiopulmonary findings. No radiology studies performed this visit Discharge Plan Discharge Patient Disposition: Home Clinical Impression: Atypical chest pain Condition: Stable Prescriptions: No Action iswbpwpf-[id number]-FA 1 mg Tablet 1 tab PO DAILY Procardia XL 60 mg tablet extended release 24hr 60 mg PO DAILY Qty: 30 1RF Discharge Orders: Discharge ED (Routine); Ordered 04/20/25 Ordered By: Aliyah Higgins Referrals: Jer Villa FNP [Primary Care Provider] Patient Instructions: Patient Portal & Hannah Instructions Activity Restrictions/Additional Instructions: As we discussed, your EKG and chest x-ray here were unremarkable. I feel you are safe for discharge from the emergency department. You may return at anytime for any further concerns you may have. Otherwise you may follow-up with your primary care provider. Print Language: Hungarian Coding Level of Care Code ED Attorney General for Chg Fwd Heart Score HEART Score Components History: Slightly Suspicous EKG: Normal Age: Less than 45 yrs Risk Factors: 1 or 2 Risk Factors Risk Factor Details: Troponins were not completed on this patient due to history/physical exam and provider feeling that these were unnecessary. Troponin: Baseline Trop <16 ng/L (BASELINE TROPS WERE NOT PERFORMED) HEART Score RESULT HEART Score: 1
[2025-04-20 18:06] VITALS: BP 144/87; PULSE 72; O2SAT 98
[2025-04-20 18:11] VITALS: BP 144/87; PULSE 78; O2SAT 100
== END 2025-04-20 18:12 | disposition home or self-care (01) ==
PROVIDERS: Emergency Provider Physician Assistant; PCP Nurse Practitioner Family
DX: R07.89 Other chest pain (principal)
CPT/HCPCS: 71045; 93005; 99284

== ENCOUNTER 2025-05-30 17:19 | Emergency (ER) | payer BC, MEDICAID, SELFPAY ==
[2025-05-30 17:24] VITALS: BP 195/106; PULSE 96; RESP 14; TEMP 36.8; O2SAT 98; BMI 37.9
--- OUTSIDE RECORDS SUMMARY | 2025-05-30 17:25 | XMS_ITS | Data Portability ---
Author Organization [place] [facility] [place], ADMIN Address [address] [place] [address] Assessment Encounter Date Assessment Date Assessment LastModified [...] 4 weeks to schedule CBD stent removal [email or web address] Not available 04/01/2024 17:37:17 04/01/2024 04/01/2024 Patient [...] post ERCP 4. CMP a.m. of procedure [email or web address] Not available 04/29/2024 14:50:14 Plan of Treatment Reminders Order Date Submit Date Provider Last Modified By Organization Details Last Modified Time Details Appointments None recorded. Lab CMP, serum or plasma - Please draw day of procedure (May 03) 2023 [facility] (Lab)_do Not Use, [address] [place], [address], 12:40:02 CMP, serum or plasma 2023 024 [facility] (Lab)_do Not Use, [address], [place], [address], 18:24:08 CBC w/ auto diff 2023 024 [facility] (Lab)_do Not Use, [address], [place], [address], 16:35:50 amylase + lipase, serum 2023 024 [facility] (Lab)_do Not Use, [address], [place], [address], 10:23:47 Referral None recorded. Procedures endoscopic retrograde cholangiopa ncreatograp hy (PROC) - IV Lock, Initiate Possible Sphincterot vijaya, with possible stent placement/s tent removal, with possible spyglass cholangiosc opy, possible balloon dilation. CPT: 02576, 88754, 54493, 48403, 29350, 96620, 91826, 85416, 12301 2023 [facility], [address], [place], [address], 16:52:36 Surgeries None recorded. Imaging None recorded. Medication Orders None recorded. Patient TargetsNo targets recorded. Patient Instructions Encounter Date Encounter Id Patient Instructions Last Modified By Organization Details Last Modified Time 04/01/2024 [id number] Please review your medication list of your Summary of Care from this visit and if any differences from what you are currently taking at home please call us to discuss. Not available 04/01/2024 15:30:44 Homebound Status : Required Home Health Services : . Durable Medical Equipment needed : Not available 04/01/2024 15:30:44 04/01/2024 [id number] learning about healthy weight [email or web address] Not available [...] for 6 weeks postop. Avoid constipation, take bahc-jzv-tcfoctv stool softeners as needed. Recommend adequate protein [...] WBC 8.1 K/uL 4.6-10 .9 Not Available [facility] (Lab)_do Not Use [address], [place], [address], 04/01/2024 16:35:50 04/01/20 24 04/01/2024 COMPL ETE BLOOD COUNT W/AUT O DIFFE RENTI AL RBC cnt 4.12 3.90-5 .19 Not Available [facility] (Lab)_do Not Use [address], [place], [address], 04/01/2024 16:35:50 04/01/20 24 04/01/2024 COMPL ETE BLOOD COUNT W/AUT O DIFFE RENTI AL HGB 10.7 g/dL 11.8-1 5.6 low Not Available [facility] (Lab)_do Not Use [address], [place], [address], 04/01/2024 16:35:50 04/01/20 24 04/01/2024 COMPL ETE BLOOD COUNT W/AUT O DIFFE RENTI AL HCT 32.4 % 38.1-4 6.9 low Not Available [facility] (Lab)_do Not Use [address], [place], [address], 04/01/2024 16:35:50 04/01/20 24 04/01/2024 COMPL ETE BLOOD COUNT W/AUT O DIFFE RENTI AL MCV 78.8 fL 81.1-9 7.9 low Not Available [facility] (Lab)_do Not Use [address], [place], [address], 04/01/2024 16:35:50 04/01/20 24 04/01/2024 COMPL ETE BLOOD COUNT W/AUT O DIFFE RENTI AL MCH 25.9 pg 27.1-3 2.9 low Not Available [facility] (Lab)_do Not Use [address], [place], [address], 04/01/2024 16:35:50 04/01/20 24 04/01/2024 COMPL ETE BLOOD COUNT W/AUT O DIFFE RENTI AL MCHC 32.9 32.1-3 5.9 Not Available [facility] (Lab)_do Not Use [address], [place], [address], 04/01/2024 16:35:50 04/01/20 24 04/01/2024 COMPL ETE BLOOD COUNT W/AUT O DIFFE RENTI AL RDW 14.7 % 11.6-1 4.4 high Not Available [facility] (Lab)_do Not Use [address], [place], [address], 04/01/2024 16:35:50 04/01/20 24 04/01/2024 COMPL ETE BLOOD COUNT W/AUT O DIFFE RENTI AL plt cnt 432 K/uL 151-44 9 Not Available [facility] (Lab)_do Not Use [address], [place], [address], 04/01/2024 16:35:50 04/01/20 24 04/01/2024 COMPL ETE BLOOD COUNT W/AUT O DIFFE RENTI AL MPV 9.2 fL 7.5-10 .3 Not Available [facility] (Lab)_do Not Use [address], [place], [address], 04/01/2024 16:35:50 04/01/20 24 04/01/2024 COMPL ETE BLOOD COUNT W/AUT O DIFFE RENTI AL NRBC% auto 0 % no reference range Not Available [facility] (Lab)_do Not Use [address], [place], [address], 04/01/2024 16:35:50 04/01/20 24 04/01/2024 COMPL ETE BLOOD COUNT W/AUT O DIFFE RENTI AL NRBC# auto 0 /100_ WBC no reference range Not Available [facility] (Lab)_do Not Use [address], [place], [address], 04/01/2024 16:35:50 04/01/20 24 04/01/2024 .AUTO DIFF neutrophils% auto 64.7 % 38.0-6 9.0 Not Available [facility] (Lab)_do Not Use [address], [place], [address], 04/01/2024 17:01:38 04/01/20 24 04/01/2024 .AUTO DIFF lymphocytes% auto 24.5 % 22.0-5 0.0 Not Available [facility] (Lab)_do Not Use [address], [place], [address], 04/01/2024 17:01:38 04/01/20 24 04/01/2024 .AUTO DIFF monocytes% auto 7.8 % 3.0-8. 0 Not Available [facility] (Lab)_do Not Use [address], [place], [address], 04/01/2024 17:01:38 04/01/20 24 04/01/2024 .AUTO DIFF eosinophils% auto 2.0 % 1.0-2. 0 Not Available [facility] (Lab)_do Not Use [address], [place], [address], 04/01/2024 17:01:38 04/01/20 24 04/01/2024 .AUTO DIFF basophils% auto 1.0 % 1.0-4. 0 Not Available [facility] (Lab)_do Not Use [address], [place], [address], 04/01/2024 17:01:38 04/01/2004/01/2024 .AUTO DIFF neutrophils# auto 5.2 3.0-7. 0 Not Available [facility] (Lab)_do Not Use [address], [place], [address], 04/01/2024 17:01:38 04/01/20 24 04/01/2024 .AUTO DIFF lymphocytes# auto 2.0 2.0-4. 0 Not Available [facility] (Lab)_do Not Use [address], [place], [address], 04/01/2024 17:01:38 04/01/20 24 04/01/2024 .AUTO DIFF monocytes# auto 0.6 1.0-1. 0 low Not Available [facility] (Lab)_do Not Use [address], [place], [address], 04/01/2024 17:01:38 04/01/20 24 04/01/2024 .AUTO DIFF eos# auto 0.2 2.0-2. 0 low Not Available [facility] (Lab)_do Not Use [address], [place], [address], 04/01/2024 17:01:38 04/01/20 24 04/01/2024 .AUTO DIFF basophils# auto 0.1 1.0-1. 0 low Not Available [facility] (Lab)_do Not Use [address], [place], [address], 04/01/2024 17:01:38 04/01/20 24 04/01/2024 AMYLA SE LEVEL amylase 72 U/L 26-114 Not Available [facility] (Lab)_do Not Use [address], [place], [address], 04/01/2024 17:12:14 04/01/2004/01/2024 LIPAS E LEVEL lipase 51 U/L 17-76 Not Available [facility] (Lab)_do Not Use [address], [place], [address], 04/01/2024 17:12:16 04/01/2004/01/2024 COMPR EHENS SAUL METAB [...] and pregn ant women . Not Available [facility] (Lab)_do Not Use [address], [place], [address], 04/01/2024 18:24:06 04/01/2004/01/2024 COMPR EHENS SAUL METAB OLIC PROFI LE glucose 86 mg/dL 71-109 Not Available [facility] (Lab)_do Not Use [address], [place], [address], 04/01/2024 18:24:06 04/01/2004/01/2024 COMPR EHENS SAUL METAB OLIC PROFI LE BUN 10 mg/dL 8-17 Not Available [facility] (Lab)_do Not Use [address], [place], [address], 04/01/2024 18:24:06 04/01/2004/01/2024 COMPR EHENS SAUL METAB OLIC PROFI LE creatinine 0.7 mg/dL 0.6-1. 3 Not Available [facility] (Lab)_do Not Use [address], [place], [address], 04/01/2024 18:24:06 04/01/2004/01/2024 COMPR EHENS SAUL METAB OLIC PROFI LE BUN/crea ratio 14.29 6.01-1 9.99 Not Available [facility] (Lab)_do Not Use [address], [place], [address], 04/01/2024 18:24:06 04/01/2004/01/2024 COMPR EHENS SAUL METAB OLIC PROFI LE sodium 145 mmol/ L 136-14 9 Not Available [facility] (Lab)_do Not Use [address], [place], [address], 04/01/2024 18:24:06 04/01/20 24 04/01/2024 COMPR EHENS SAUL METAB OLIC PROFI LE potassium 3.7 mEq/L 3.6-5. 2 Not Available [facility] (Lab)_do Not Use [address], [place], [address], 04/01/2024 18:24:06 04/01/2004/01/2024 COMPR EHENS SAUL METAB OLIC PROFI LE chloride 106 mmol/ L 96-109 Not Available [facility] (Lab)_do Not Use [address], [place], [address], 04/01/2024 18:24:06 04/01/2004/01/2024 COMPR EHENS SAUL METAB OLIC PROFI LE carbon dioxide 26 mmol/ L 22-33 Not Available [facility] (Lab)_do Not Use [address], [place], [address], 04/01/2024 18:24:06 04/01/2004/01/2024 COMPR EHENS SAUL METAB OLIC PROFI LE calcium 8.9 mg/dL 8.6-10 .0 Not Available [facility] (Lab)_do Not Use [address], [place], [address], 04/01/2024 18:24:06 04/01/2004/01/2024 COMPR EHENS SAUL METAB OLIC PROFI LE Ca corrected 9.0 mg/dL 8.6-10 .0 Not Available [facility] (Lab)_do Not Use [address], [place], [address], 04/01/2024 18:24:06 04/01/2004/01/2024 COMPR EHENS SAUL METAB OLIC PROFI LE prot total 7.7 g/dL 6.5-8. 2 Not Available [facility] (Lab)_do Not Use [address], [place], [address], 04/01/2024 18:24:06 04/01/2004/01/2024 COMPR EHENS SAUL METAB OLIC PROFI LE albumin 3.9 g/dL 3.6-4. 9 Not Available [facility] (Lab)_do Not Use [address], [place], [address], 04/01/2024 18:24:06 04/01/2004/01/2024 COMPR EHENS SAUL METAB OLIC PROFI LE globulin 4 no reference range Not Available [facility] (Lab)_do Not Use [address], [place], [address], 04/01/2024 18:24:06 04/01/2004/01/2024 COMPR EHENS SAUL METAB OLIC PROFI LE albumin/glob ulin ratio 1.03 1.01-2 .49 Not Available [facility] (Lab)_do Not Use [address], [place], [address], 04/01/2024 18:24:06 04/01/2004/01/2024 COMPR EHENS SAUL METAB OLIC PROFI LE anion gap 13.0 mmol/ L 3.1-10 .9 high Not Available [facility] (Lab)_do Not Use [address], [place], [address], 04/01/2024 18:24:06 04/01/2004/01/2024 COMPR EHENS SAUL METAB OLIC PROFI LE alkaline phosphatase 222 U/L 51-135 high Not Available [facility] (Lab)_do Not Use [address], [place], [address], 04/01/2024 18:24:06 04/01/20 24 04/01/2024 COMPR EHENS SAUL METAB OLIC PROFI LE AST 16 U/L 16-36 Not Available [facility] (Lab)_do Not Use [address], [place], [address], 04/01/2024 18:24:06 04/01/20 24 04/01/2024 COMPR EHENS SAUL METAB OLIC PROFI LE ALT 33 U/L 31-64 Not Available [facility] (Lab)_do Not Use [address], [place], [address], 04/01/2024 18:24:06 04/01/20 24 04/01/2024 COMPR EHENS SAUL METAB OLIC PROFI LE bili total 0.4 mg/dL 0.1-0. 9 Not Available [facility] (Lab)_do Not Use [address], [place], [address], 04/01/2024 18:24:06 04/01/20 24 04/01/2024 COMPR EHENS SAUL METAB OLIC PROFI LE osmol calc 287 mOsm/ kg 276-29 4 Not Available [facility] (Lab)_do Not Use [address], [place], [address], 04/01/2024 18:24:06 05/03/20 24 05/03/2024 COMPR EHENS [...] fore eGFR calcu latio ns, are affec palu by very high or very low muscl [...] and pregn ant women . Not Available [facility] (Lab)_do Not Use [address], [place], [address], 05/03/2024 12:40:02 05/03/20 24 05/03/2024 COMPR EHENS SAUL METAB OLIC PROFI LE glucose 85 mg/dL 71-109 Not Available [facility] (Lab)_do Not Use [address], [place], [address], 05/03/2024 12:40:02 05/03/20 24 05/03/2024 COMPR EHENS SAUL METAB OLIC PROFI LE BUN 15 mg/dL 8-17 Not Available [facility] (Lab)_do Not Use [address], [place], [address], 05/03/2024 12:40:02 05/03/20 24 05/03/2024 COMPR EHENS SAUL METAB OLIC PROFI LE creatinine 0.7 mg/dL 0.6-1. 3 Not Available [facility] (Lab)_do Not Use [address], [place], [address], 05/03/2024 12:40:02 05/03/20 24 05/03/2024 COMPR EHENS SAUL METAB OLIC PROFI LE BUN/crea ratio 21.43 6.01-1 9.99 high Not Available [facility] (Lab)_do Not Use [address], [place], [address], 05/03/2024 12:40:02 05/03/20 24 05/03/2024 COMPR EHENS SAUL METAB OLIC PROFI LE sodium 141 mmol/ L 136-14 9 Not Available [facility] (Lab)_do Not Use [address], [place], [address], 05/03/2024 12:40:02 05/03/20 24 05/03/2024 COMPR EHENS SAUL METAB OLIC PROFI LE potassium 3.9 mEq/L 3.6-5. 2 Not Available [facility] (Lab)_do Not Use [address], [place], [address], 05/03/2024 12:40:02 05/03/20 24 05/03/2024 COMPR EHENS SAUL METAB OLIC PROFI LE chloride 104 mmol/ L 96-109 Not Available [facility] (Lab)_do Not Use [address], [place], [address], 05/03/2024 12:40:02 05/03/20 24 05/03/2024 COMPR EHENS SAUL METAB OLIC PROFI LE carbon dioxide 26 mmol/ L 22-33 Not Available [facility] (Lab)_do Not Use [address], [place], [address], 05/03/2024 12:40:02 05/03/20 24 05/03/2024 COMPR EHENS SAUL METAB OLIC PROFI LE calcium 9.3 mg/dL 8.6-10 .0 Not Available [facility] (Lab)_do Not Use [address], [place], [address], 05/03/2024 12:40:02 05/03/20 24 05/03/2024 COMPR EHENS SAUL METAB OLIC PROFI LE Ca corrected 9.1 mg/dL 8.6-10 .0 Not Available [facility] (Lab)_do Not Use [address], [place], [address], 05/03/2024 12:40:02 05/03/20 24 05/03/2024 COMPR EHENS SAUL METAB OLIC PROFI LE prot total 7.9 g/dL 6.5-8. 2 Not Available [facility] (Lab)_do Not Use [address], [place], [address], 05/03/2024 12:40:02 05/03/20 24 05/03/2024 COMPR EHENS SAUL METAB OLIC PROFI LE albumin 4.2 g/dL 3.6-4. 9 Not Available [facility] (Lab)_do Not Use [address], [place], [address], 05/03/2024 12:40:02 05/03/20 24 05/03/2024 COMPR EHENS SAUL METAB OLIC PROFI LE globulin 4 no reference range Not Available [facility] (Lab)_do Not Use [address], [place], [address], 05/03/2024 12:40:02 05/03/20 24 05/03/2024 COMPR EHENS SAUL METAB OLIC PROFI LE albumin/glob ulin ratio 1.14 1.01-2 .49 Not Available [facility] (Lab)_do Not Use [address], [place], [address], 05/03/2024 12:40:02 05/03/20 24 05/03/2024 COMPR EHENS SAUL METAB OLIC PROFI LE anion gap 11.0 mmol/ L 3.1-10 .9 high Not Available [facility] (Lab)_do Not Use [address], [place], [address], 05/03/2024 12:40:02 05/03/20 24 05/03/2024 COMPR EHENS SAUL METAB OLIC PROFI LE alkaline phosphatase 242 U/L 51-135 high Not Available [facility] (Lab)_do Not Use [address], [place], [address], 05/03/2024 12:40:02 05/03/20 24 05/03/2024 COMPR EHENS SAUL METAB OLIC PROFI LE AST 23 U/L 16-36 Not Available [facility] (Lab)_do Not Use [address], [place], [address], 05/03/2024 12:40:02 05/03/20 24 05/03/2024 COMPR EHENS SAUL METAB OLIC PROFI LE ALT 51 U/L 31-64 Not Available [facility] (Lab)_do Not Use [address], [place], [address], 05/03/2024 12:40:02 05/03/20 24 05/03/2024 COMPR EHENS SAUL METAB OLIC PROFI LE bili total 0.5 mg/dL 0.1-0. 9 Not Available [facility] (Lab)_do Not Use [address], [place], [address], 05/03/2024 12:40:02 05/03/20 24 05/03/2024 COMPR EHENS SAUL METAB OLIC PROFI LE osmol calc 281 mOsm/ kg 276-29 4 Not Available [facility] (Lab)_do Not Use [address], [place], [address], 05/03/2024 12:40:02 05/04/20 24 05/03/2024 rf ERCP bilia ry duct [facility] [place] [facility] [place] [address] [place] [address]- Patien t: DOMINGA NOEL [id number]:[id number] : 2004 Sex:Fe male Locati on: [facility]; 1070; 1 Orderi ng Physic raul: ULICES COVINGTON MD Diagno stic Radiol ogy Access ion Exam Date/T luis felipe [id number] 2023 14:17 DIRECTOR OF 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 Please see provid ers surgic al proced ure or operat saul note for exam interp retati ons & report s in Cerner . If report assist ance is needed please call [facility] Medica l Record s Depart ment at for result s. Final Signed by: Luda Nieto PACS Admini juaquin r Signed (Elect blanche Signat ure): 2023 06:44 am DIRECTOR OF ONLINE MERCHANDISING Transc ribed DT/TM: 2023 06:44 am DIRECTOR OF ONLINE MERCHANDISING Techni arelis Commen ts Fluoro scopy time (in minute s): 0 Fluoro scopy time (in second s): 14.6 tcowger [facility] (Radiology) [address], [place], [address], 05/19/2024 15:19:18 Result Notes None recorded. Problems Name Problem SNOMED Code Status Onset Date Resolution Date Notes Provider Name and Address Organization Details Recorded Time Obesity 564850780 Active 024 YANNICK FRANK MD [address] [facility], [place], [address] , [facility] [place] 04/01/2024 17:01:36 Problem Notes None recorded. Procedures Surgical History Date Name Laterality Status Provider Name and Address Organization Details Recorded Time 2023 endoscopic retrograde cholangiopancreatography completed Sandra Owens RN [address] 4 13:56:11 2023 Transitional_Care_Manageme nt completed Torres Guzman LPN [address] 4 15:30:45 2023 cholecystectomy completed Torres Guzman LPN [address] 4 15:33:42 2023 endoscopic retrograde cholangiopancreatography completed Torres Guzman LPN [address] 4 15:33:48 Imaging Results None recorded. [...] 4 165.1 cm 34.2 kg/m2 96 % 33804.8 7 g 97.9 [degF] 85 /min 131/84 mm[Hg] Jordi Brown LPN [address] 4 14:43:20 Date Recorded Body height Body mass index (BMI) [Percentile] Per age and sex Body mass index (BMI) Body weight Respiratory rate Oxygen saturation Heart rate Pain severity - 0-10 verbal numeric rating [Score] - Reported Systolic And Diastolic Provider Name and Address Organization Details Last Updated DateTime 4 165.1 cm 96 % 33.8 kg/m2 31709.3 3 g 18 /min 98 % 74 /min 0 118/79 mm[Hg] Torres Guzman LPN [address] 4 15:36:21 Date Recorded Body height Body mass index (BMI) Body mass index (BMI) [Percentile] Per age and sex Body weight Pain severity - 0-10 verbal numeric rating [Score] - Reported Provider Name and Address Organization Details Last Updated DateTime 04/29/2024 165.1 cm 35.3 kg/m2 97 % 06688.5 8 g 0 Torres Guzman LPN [address] 14:31:50 Social History Question Answer Notes LastModified by Organizat ion Details LastModified Time Tobacco Smoking Status Never Smoker Jordi Brown LPN null, [address] 04/01/2024 14:44:08 What Is Your Level [...] ICD10 Code Diagnosis IMO Codes Diagnosis Note [id number] YANNICK FRANK MD [facility]GERY [address] [facility] [place] [address] 04/01/2024 14:24:52 04/04/2024 11:38:22 Postoperative care 098191195 Z48.89 Obesity 206113869 E66.9 [id number] Ulices Coffman MD [facility] GASTROENT EROLOGY [address] [facility] [place] [address] 04/01/2024 15:14:02 04/01/2024 15:48:22 Common bile duct calculus 165112238 K80.50 [id number] Ulices Coffman MD [facility] GASTROENT EROLOGY [address] [place] [address] [place] [address] 04/29/2024 14:30:13 04/29/2024 14:42:45 Common bile duct calculus 687474636 K80.50 Health Concerns Section Related Observation LastModified by Organization Detai ls LastModified Time None Recorded Concern Status LastModified by Organization Details LastModified Time None Recorded Advance Directives Directive None Recorded Payers Insurance Date Sequence Insurance Name Policy Number Policy Bardales Covered Member ID Bardales Member ID Guarantor Name 01/06/2025 1 [employer] [place] (MED[place]AC[place] - HMO) [id number] Dominga Noel [id number] Dominga Noel 05/09/2024 2 [place] Dominga Noel [id number] Dominga Noel Notes Date Note Type Note [...] from the laparoscopic procedure. YANNICK FRANK MD [address] [place] [address], [phone], [address] 04/01/2024 17:16:28 04/01/2024 text/html 18 year [...] schedule CBD stent removal DEEPIKA BURTON NP [address] [place] [address], [phone], [facility] [place] 04/01/2024 17:37:29 04/29/2024 text/html 18 year old [...] a.m. of procedure DEEPIKA BURTON NP [address] [facility], [place], [address], [facility] [place] 04/29/2024 14:50:25 OBGyn Episode No OBEpisode recorded.
--- OUTSIDE RECORDS SUMMARY | 2025-05-30 17:25 | XMS_ITS | Clinical Summary ---
Author Organization [facility] Address [address] [place] [address] Phone Care Team Providers Care Supervisor Silvering Department Name Role Phone Unavailable Primary Care Provider [...] SMEAR 2024 INFLUENZA VACCINE (#1) 2025 [facility] Advance Directives For more information, please contact: [phone] * Full Code (Latest Code Status on File) Date Activated Date Inactivated Comments 02/27/2024 10:49 AM 02/29/2024 8:56 PM
--- NOTE | 2025-05-30 17:37 | USR_ITS ---
PROCEDURE INFORMATION: Exam: US , Transvaginal Exam date and time: 05/30/2025 6:01 PM Age: 20 years old Clinical indication: complicated by abdominal or pelvic pain; Generalized abdominal pain; First trimester (<14 weeks 0 days); Gestational age or lmp: 5 weeks; ; Additional info: Bleeding, pain Additional history: Per patient, G1, P1. LMP 04/24/2025, GA 5 weeks 1 day, estimated date of confinement 01/29/2026. LABS AND CLINICAL REPORTS: Last menstrual period start date: 04/24/2025 Gestational age (Established): 5 w 1 d Estimated due date (Established): 01/29/2026 TECHNIQUE: Imaging protocol: Real-time transvaginal obstetrical ultrasound of the maternal pelvis with image documentation. Transvaginal imaging was used for better evaluation of the fetus, adnexa, and/or cervix. Total images: 3 COMPARISON: 1. US OB BPP wo NST [id number] 01/02/2024 7:32 AM 2[place] [id number] 12/24/2023 8:03 AM FINDINGS: Gestation: Yolk sac measures 1.9 mm. Endometrial echo complex measures up to 16 mm thickness, the endometrium demonstrating a gestational sac of 5 weeks 2 days by mean sac diameter. Yolk sac 0.2 cm diameter. pole not visualized. Intrauterine gestational sac. pole not observed. heart rate: Not detected. Placenta: No subchorionic hemorrhage. No gestational sac (no subchorionic hemorrhage) identified at ultrasound. Amniotic fluid (Qualitative): No gestational sac identified at ultrasound. BIOMETRY: Gestational age (AUA): Gestational sac, 5 weeks 2 days by mean sac diameter. pole not observed. Mean sac diameter: 0.49 cm. EGA (MSD) is 5 w 2 d BIOPHYSICAL PROFILE: tone (BPP): heart tones not observed at 5 weeks 2 days gestational age. MATERNAL: Uterus: Uterus is retroverted and demonstrates generalized heterogeneous myometrial echotexture. Right ovary/adnexa: Right ovary normal arterial inflow, venous outflow and Doppler waveforms. Normal right adnexa. Right ovary measures 3.5 mL volume, 2.0 cm maximum transverse dimension. Left ovary/adnexa: Left ovary dominant follicle 1.9 cm diameter. Left ovary normal arterial inflow, venous outflow and Doppler waveforms. Normal left adnexa. Left ovary measures 3.7 mL volume, 2.2 cm maximum transverse dimension. Intraperitoneal space: No free pelvic fluid. US/US OB transvaginal [id number] IMPRESSION: 1. Gestational sac 5 weeks 2 days by mean sac diameter, demonstrating a 1.9 mm diameter yolk sac. Please see comment below. 2. pole not observed within gestational sac. 3. Blood flow confirmed to both ovaries, no torsion. COMMENTS: If a clinical of unknown location (PUL) cannot be excluded, obtain baseline serum B-hCG and repeat at 48 hours, continuing as needed, to differentiate early first-trimester loss, early occult intrauterine , or occult ectopic . The discriminatory zone for transvaginal ultrasound is typically ~5619-4624 mIU/mL, above which an intrauterine should be visualized.
--- NOTE | 2025-05-30 17:47 | W.ED.PREGNAN ---
HPI - General: Chief complaint: Vaginal Bleeding Stated complaint: 5 weeks preg, cramping Time Seen by Provider: 05/30/25 17:32 Source: patient Mode of arrival: ambulatory Limitations: no limitations History of Present Illness: Patient is a 20-year-old female, , approximately 5 weeks , presenting to the emergency department complaining of lower abdominal cramping and low back pain beginning earlier today. First with live with no complications. The patient has past medical history positive for primary hypertension, used to be on antitensive medication but states that due to insurance purposes has not been taking this for some time. Because of this her blood pressure at triage was elevated to 195/106. The patient is not endorsing any chest pain, headache, visual changes, nausea/vomiting, or any other symptoms. She is denying any vaginal bleeding. Denies any personal history of ectopic , but states that her mom has a history of this and this is what is concerning the patient and she would like this ruled out. Other than the lower abdominal cramping and low back pain she has no other symptoms at this time. MD Complaint: other (lower abd cramping, low back pain) Onset (ago): hour(s) Pain Consistency: constant Severity: moderate Quality: Cramping Associated symptoms: Deny dysuria, headache(s), nausea or vomiting Related Data Home Medications ?Medication ?Instructions ?Recorded ?Confirmed [id number] 1 mg 1 tab PO DAILY 11/23/23 03/01/24 tablet Previous Rx's ?Medication ?Instructions ?Recorded nifedipine 60 mg tablet,extended 60 mg PO DAILY #60 tabs 05/30/25 release 24 hr (Procardia XL) Allergies Allergy/AdvReac Type Severity Reaction Status Date / Time No Known Allergies Allergy Verified 03/01/24 11:30 Review of Systems General: Reports: 10 or more systems reviewed and unremarkable except in HPI and below Const: Denies: fever(s), chills or fatigue Eyes: Denies: change in vision ENMT: Denies: throat pain, ear or mastoid pain or nasal discharge Card: Denies: chest pain, palpitations, swelling of feet/ankles or lightheadedness Resp: Denies: dyspnea, productive cough or wheezing GI: Reports: GI cramping; Denies: nausea, vomiting, diarrhea or constipation : Denies: flank pain, difficulty voiding, dysuria, urinary frequency or vaginal bleeding Musc: Reports: back pain; Denies: neck pain or joint pain Skin/Breast: Denies: rash Neuro: Denies: headache(s), numbness in extremities or weakness in extremities PFSH ED PFSH: Medical History Vaginal delivery Encounter for induction of labor Hypertension History of ovarian cyst No pertinent family history Surgical History No pertinent past surgical history Family History Mother Diabetes Hypertension Father Hypertension Denies family history of Colon cancer Ovarian cancer Prostate cancer Heart disease Breast cancer Uterine cancer Thyroid disease Stroke Social History Smoking and tobacco/nicotine status: never used tobacco/nicotine Female Reproductive History: Spontaneous abortions: No Physical Exam Const: COMMON NORMALS: no acute distress, patient oriented x3, no limitations, alert and well nourished GENERAL APPEARANCE: cooperative NUTRITIONAL APPEARANCE: obese ORIENTATION/CONSCIOUSNESS: Yes awake OTHER: nontoxic Neck/C-Spine: COMMON NORMALS: full ROM, supple and no meningeal signs Resp: COMMON NORMALS: normal respiratory effort, No retractions, No use of accessory muscles and clear to auscultation bilaterally AUSCULTATION: clear to auscultation bilaterally, no crackles, no rales, no rhonchi and no wheezes Cardio: COMMON NORMALS: regular rate, regular rhythm, No gallops present (Cardio), No clicks present (Cardio), No murmurs present (Cardio) and No rub (Cardio) RATE: regular rate RHYTHM: regular rhythm GI: COMMON NORMALS: Normal to inspection, nondistended, normoactive bowel sounds present, Soft to palpation, non-tender, No hepatosplenomegaly present and no masses AUSCULTATION: Yes normoactive bowel sounds PALPATION: Yes Soft to palpation, No Guarding due to palpation present (GI), No Rigid due to palpation and Yes No hepatosplenomegaly present RECTAL EXAM: deferred : COMMON NORMALS: Yes no CVA tenderness BLADDER/KIDNEY EXAM: Yes no CVA tenderness Back/Pelvis: COMMON NORMALS: no CVA tenderness Extremity: COMMON NORMALS: normal to inspection and full ROM Neuro: COMMON NORMALS: patient oriented x3, moves all extremities, no focal motor deficits and no sensory deficits noted SENSORIUM/ORIENTATION: Yes alert MENINGEAL SIGNS: Yes no meningeal signs Psych: COMMON NORMALS: mental status grossly normal, cooperative and speech normal SPEECH: Yes normal speech Skin: COMMON NORMALS: no rashes or lesions noted GENERAL SKIN EXAM: no rashes or lesions noted Course Vital Signs: Vital signs: Vital Signs Temperature 98.3 F 05/30/25 17:24 Pulse Rate 90 05/30/25 19:47 Respiratory Rate 14 05/30/25 17:24 Blood Pressure 132/86 05/30/25 19:47 Pulse Oximetry 96 05/30/25 19:47 Oxygen Delivery Me thod Room Air 05/30/25 18:19 MDM - OB/Uterine Contractions Medical Decision Making Patient presented for reports of lower abdominal cramping 5 weeks gestation of . This is her second , she expressed concern over ectopic due to her mom having history, the patient has no personal history of ectopic . No bleeding was reported, just some back pain associated with the cramping. She arrives hypertensive 195/106, she has a history of chronic primary hypertension but has not been taking medications due to insurance reasons. After IV labetalol 20 mg her blood pressure normalized as well, has been 120 or 130 systolic and she will have her nifedipine refilled and start taking this again. The transvaginal ultrasound shows no evidence of ectopic , blood flow to both ovaries with no torsion, and gestational sac measuring 5 weeks 2 days. Her beta-hCG quantitative appears within normal range, there is no evidence of kidney injury, no UTI on urinalysis, and no other emergent obstetric findings or gynecologic findings. She will start the nifedipine as mentioned and follow-up with her OB for further evaluation, and continue regular care. Return precautions given. Lab Data 05/30/25 17:51 05/30/25 17:51 Radiology Impressions Transvaginal US 05/30/25 17:37 IMPRESSION: 1. Gestational sac 5 weeks 2 days by mean sac diameter, demonstrating a 1.9 mm diameter yolk sac. Please see comment below. 2. pole not observed within gestational sac. 3. Blood flow confirmed to both ovaries, no torsion. COMMENTS: If a clinical of unknown location (PUL) cannot be excluded, obtain baseline serum B-hCG and repeat at 48 hours, continuing as needed, to differentiate early first-trimester loss, early occult intrauterine , or occult ectopic . The discriminatory zone for transvaginal ultrasound is typically ~0862-2735 mIU/mL, above which an intrauterine should be visualized. Laboratory Results WBC 10.60 10^3/uL (3.29-11.43) 05/30/25 17:51 RBC 4.98 10^6/uL (3.85-5.65) 05/30/25 17:51 Hgb 13.60 g/dL (11.27-16.99) 05/30/25 17:51 Hct 41.1 % (36-47) 05/30/25 17:51 MCV 82.5 fl (85-98) L 05/30/25 17:51 MCH 27.3 pg (27-33) 05/30/25 17:51 MCHC 33.1 g/dL (30-55) 05/30/25 17:51 RDW 12.6 % (12.1-15.1) 05/30/25 17:51 Plt Count 395 10^3/cmm (157-399) 05/30/25 17:51 MPV 10.6 fL (7.4-10.4) H 05/30/25 17:51 Neut % (Auto) 68.3 % 05/30/25 17:51 Lymph % (Auto) 22.9 % 05/30/25 17:51 [place] % (Auto) 6.2 % 05/30/25 17:51 Eos % (Auto) 1.7 % 05/30/25 17:51 Baso % (Auto) 0.6 % 05/30/25 17:51 Neut # (Auto) 7.24 10^3/uL (1.8-7.7) 05/30/25 17:51 Lymph # (Auto) 2.4 10^3/uL (0.8-4.8) 05/30/25 17:51 [place] # (Auto) 0.7 10^3/uL (0.2-0.9) 05/30/25 17:51 Eos # (Auto) 0.2 10^3/uL (0.0-0.8) 05/30/25 17:51 Baso # (Auto) 0.1 10^3/uL (0.0-0.1) 05/30/25 17:51 Nucleated RBC % (auto) 0 % 05/30/25 17:51 Nucleated RBCs # 0.0 /100WBC 05/30/25 17:51 Sodium 135 mmol/L (136-145) L 05/30/25 17:51 Potassium 3.5 mmol/L (3.5-5.1) 05/30/25 17:51 Chloride 98 mmol/L (98-107) 05/30/25 17:51 Carbon Dioxide 23 mmol/L (22-29) 05/30/25 17:51 Anion Gap 17.5 (5-19) 05/30/25 17:51 BUN 10 mg/dL (6-20) 05/30/25 17:51 Creatinine 0.5 mg/dL (0.5-0.9) 05/30/25 17:51 GFR Calculation 154.3 mL/min (90-130) H 05/30/25 17:51 Glucose 100 mg/dL (65-115) 05/30/25 17:51 Calculated Osmolality 279 mOsm/kg (285-295) L 05/30/25 17:51 Calcium 9.3 mg/dL (8.5-10.5) 05/30/25 17:51 Total Bilirubin 0.4 mg/dL (0.15-1.2) 05/30/25 17:51 AST 17 U/L (0-32) 05/30/25 17:51 ALT 23 U/L (0-33) 05/30/25 17:51 Alkaline Phosphatase 185 U/L (35-105) H 05/30/25 17:51 Total Protein 7.8 g/dL (6.6-8.7) 05/30/25 17:51 Albumin 4.5 g/dL (3.5-5.2) 05/30/25 17:51 Globulin 3.3 g/dL (1.3-4.6) 05/30/25 17:51 Ser , Semi-Qnt 2012.00 mIU/mL 05/30/25 17:51 Urine Color Yellow (Yellow) 05/30/25 17:35 Urine Appearance Clear (CLEAR) 05/30/25 17:35 Urine pH 6.5 (5-7) 05/30/25 17:35 Ur Specific [place] 1.020 (1.005-1.030) 05/30/25 17:35 Urine Protein Negative (Negative) 05/30/25 17:35 Urine Glucose (UA) Negative (Normal) 05/30/25 17:35 Urine Ketones Trace (Negative) 05/30/25 17:35 Urine Blood Negative (Negative) 05/30/25 17:35 Urine Nitrate Negative (Negative) 05/30/25 17:35 Urine Bilirubin Negative (Negative) 05/30/25 17:35 Urine Urobilinogen 1.0 mg/dL (Negative) 05/30/25 17:35 Ur Leukocyte Esterase Negative (Negative) 05/30/25 17:35 Urine RBC 0-2 /hpf (0-2) 05/30/25 17:35 Urine WBC 0-5 /hpf (0-5) 05/30/25 17:35 Ur Squamous Epith Cells 0-5 /hpf (0-5) 05/30/25 17:35 Amorphous Sediment Not Reportable 05/30/25 17:35 Urine Bacteria None seen /hpf (NONE) 05/30/25 17:35 Hyaline Casts 0-4 /lpf H 05/30/25 17:35 Ur Random Microalbumin 2 ug/dL (0-20) 05/30/25 17:35 Urine Creatinine 106 mg/dL (28-217) 05/30/25 17:35 Microalb/Creat Ratio 19 mg/dL (0-20) 05/30/25 17:35 Blood Type O Positive 05/30/25 17:51 Rho(D) Type Rh positive 05/30/25 17:51 All radiology interpretation(s) finalized by discharge Discharge Plan Discharge Patient Disposition: Home Clinical Impression: Chronic hypertension during Abdominal pain during Qualifiers: Trimester: first trimester Qualified Code(s): O26.891 - Other specified related conditions, first trimester Condition: Stable Prescriptions: New nifedipine [Procardia XL] 60 mg tablet extended release 24hr 60 mg PO DAILY Qty: 60 0RF Discontinued nifedipine [Procardia XL] 60 mg tablet extended release 24hr 60 mg PO DAILY Qty: 30 1RF No Action [id number] 1 mg Tablet 1 tab PO DAILY Discharge Orders: Discharge ED (Routine); Ordered 05/30/25 Ordered By: Da Irving Referrals: Jer Villa FNP [Primary Care Provider] Patient Instructions: Patient Portal & Hannah Instructions Activity Restrictions/Additional Instructions: Discharge Instructions Your Diagnosis You were seen in the emergency department for abdominal pain during . Testing showed that you are 5 weeks , and ultrasound ruled out serious problems like ectopic ( outside the uterus). Your blood pressure was high when you arrived, but it was successfully treated with intravenous medication. You have chronic high blood pressure (hypertension) that needs to be controlled during your . Why Blood Pressure Control Matters During Controlling your blood pressure during is very important to protect both you and your baby. Women with chronic hypertension who do not treat their high blood pressure have a higher risk of serious complications including preeclampsia (a dangerous condition), placental abruption (when the placenta separates early), , and problems with the baby's growth. Recent research shows that treating high blood pressure to keep it below 140/90 mm Hg reduces these risks without harming your baby. Your Medications - Nifedipine: You were prescribed this medication before but have not been taking it. It is very important that you restart this medication and take it every day as directed. Nifedipine is a safe and effective blood pressure medication during . It is one of the first-choice medications for women with high blood pressure. - Do NOT take certain blood pressure medications during , including JUAN J inhibitors (like lisinopril), ARBs (like losartan), or water pills unless specifically told to by your centrifugal casting machine tender. These can harm your developing baby. Monitoring Your Blood Pressure at Home You should check your blood pressure at home regularly using an accurate home blood pressure monitor. Keep a log of your readings to share with your centrifugal casting machine tender. Call your doctor right away if: - Your blood pressure is 160/110 mm Hg or higher - You have severe headaches that don't go away - You have vision changes (blurry vision, seeing spots) - You have severe upper abdominal pain - You have sudden swelling of your face or hands - You have decreased movement (later in ) What to Expect Your blood pressure may naturally decrease during the first and second trimesters of , which is normal. Your doctor may need to adjust your medication dose as your progresses. Do not stop or change your medications without talking to your doctor first. Follow-Up Care - Schedule an appointment with your centrifugal casting machine tender within 1 week or sooner if they recommend it - Bring your blood pressure log to all appointments - Your doctor may recommend low-dose aspirin (baby aspirin) starting after 12 weeks of to help prevent preeclampsia - Continue all vitamins as directed Lifestyle Recommendations - Continue normal physical activity unless your doctor tells you otherwise. Bed rest is not recommended. - Eat a healthy, balanced diet. You do not need to follow an extremely low-salt diet. - Attend all appointments - Do not smoke or use recreational drugs - Avoid alcohol during When to Seek Emergency Care Go to the emergency department or call 911 if you experience: - Blood pressure 160/110 mm Hg or higher that doesn't come down - Severe headache with vision changes - Seizures - Chest pain or trouble breathing - Severe abdominal pain - Vaginal bleeding - Severe swelling with headache or vision changes Important Reminders Taking your blood pressure medication every day is one of the most important things you can do for a healthy . The medication you were prescribed (nifedipine) is safe for your baby and will help prevent serious complications. If you have any questions or concerns about your medications or symptoms, contact your centrifugal casting machine tender right away. Print Language: Macedonian Coding Level of Care Code ED Dry Starch Supervisor for Sonido Rivers
[2025-05-30 17:49] LABS: Glucose Urine UA Negative (Normal); Nitrate Urine Negative (Negative); Specific Gravity, Urine 1.020 (1.005-1.030)
[2025-05-30 17:51] LABS: Add Urine Microscopic? YES
[2025-05-30] MEDS: labetalol 5 mg/mL SDV 20mL 20 MG IVP (17:53)
[2025-05-30 17:55] VITALS: PULSE 100; O2SAT 97
[2025-05-30 18:11] LABS: Hematocrit 41.1 % (36-47); Hemoglobin 13.60 g/dL (11.27-16.99); Mean Corpuscular HGB Conc 33.1 g/dL (30-55); Mean Corpuscular Hemoglobin 27.3 pg (27-33); Mean Corpuscular Volume 82.5 fl (85-98); Nucleated Red Blood Cells % 0 %; Platelet Count 395 10^3/cmm (157-399); Red Blood Count 4.98 10^6/uL (3.85-5.65); White Blood Count 10.60 10^3/uL (3.29-11.43)
[2025-05-30 18:19] VITALS: BP 125/81; PULSE 90; O2SAT 95
[2025-05-30 18:31] LABS: Creatinine Urine, Random 106 mg/dL (28-217); Microalbum Creatinine Ratio Ur 19 mg/dL (0-20)
[2025-05-30 18:47] VITALS: BP 137/71
[2025-05-30 18:56] LABS: Alanine Aminotransferase 23 U/L (0-33); Albumin Level 4.5 g/dL (3.5-5.2); Alkaline Phosphatase 185 U/L (35-105); Anion Gap 17.5 (5-19); Aspartate Amino Transferase 17 U/L (0-32); Blood Urea Nitrogen 10 mg/dL (6-20); Calcium 9.3 mg/dL (8.5-10.5); Carbon Dioxide 23 mmol/L (22-29); Chloride 98 mmol/L (98-107); Globulin 3.3 g/dL (1.3-4.6); Glucose 100 mg/dL (65-115); Osmolality Calculated 279 mOsm/kg (285-295); Potassium 3.5 mmol/L (3.5-5.1); Sodium 135 mmol/L (136-145); Total Protein 7.8 g/dL (6.6-8.7)
[2025-05-30 19:37] VITALS: BP 143/88; PULSE 87; O2SAT 99
[2025-05-30 19:47] VITALS: BP 132/86; PULSE 90; O2SAT 96
== END 2025-05-30 19:48 | disposition home or self-care (01) ==
PROVIDERS: Emergency Provider Physician Assistant; PCP Nurse Practitioner Family
DX: O10.911 Unspecified pre-existing hypertension complicating pregnancy, first trimester (principal); Z3A.01 Less than 8 weeks gestation of pregnancy
CPT/HCPCS: 36415; 76817; 80053; 81001; 82044; 84702; 85025; 86900; 96374; 99284; J3490